=== PATIENT | female | born 1940 | race Caucasian/White ===

== ENCOUNTER 2018-02-13 15:13 | Inpatient (IN) | payer MEDICARE, BC, OTHER ==
[~2018-02-13 15:13] MED LIST: Calcium Chloride 1 GM/10 ML Abboject SYRINGE ONE; ISOVUE-370 76%-LOCM 1 ML ONE; PHENYLEPHRINE-NS 100 MCG/ML 10 ML SYRINGE ONE; Sodium Bicarb 50 MEQ/50 ML Abboject 8.4% SYRINGE ONE
[2018-02-13] MEDS ORDERED: CEFAZOLIN 1 GM VIAL ONE (15:23)
[2018-02-13] MEDS ORDERED: Sodium Chloride 0.9% 0 ML ONE (15:24)
[2018-02-13 15:32] LABS: #Basophils 0.1 thou/uL (0.0-0.2); #Eosinphils 0.3 thou/uL (0.0-0.7); #Lymphocytes 4.4 thou/uL (1.20-3.40); #Monocytes 1.3 thou/uL (0.11-0.59); #Neutrophils 13.1 thou/uL (1.40-6.50); %Basophils 0.4 % (0.0-1.0); %Eosinophils 1.7 % (0.0-10.0); %Monocytes 6.8 % (0.0-10.0); %Neutrophils 68.1 % (42.0-75.0); Hemoglobin 9.3 g/dL (12.0-16.0); Mean Corpuscular HGB CONC 33.7 g/dL (32.0-36.0); Mean Corpuscular Hemoglobin 32.8 pg (27.0-31.0); Mean Corpuscular Volume 97.4 fL (78.0-98.0); Mean Platelet Volume 9.2 fL (7.4-10.4); Platelet Count 194 thou/uL (130-400); RBC Distribution Width 13.3 % (11.5-14.5); Red Blood Cell (RBC) Count 2.82 mill/uL (4.20-5.40); White Blood Cell (WBC) Count 19.2 thou/uL (4.8-10.8)
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
[2018-02-13 15:41] LABS: INR-International Normal Ratio 1.2; Prothrombin Time 14.9 SEC (12.0-14.7)
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
[2018-02-13 15:42] LABS: PTT 22.8 SEC (22.9-36.1)
[2018-02-13] MEDS ORDERED: Gentamicin Sulfate 300 MG in Sodium Chloride 0.9% 100 ML IVPB SCH (15:45)
[2018-02-13 15:49] LABS: ALT (SGPT) 17 U/L (8-55); AST (SGOT) 29 U/L (5-34); Albumin 3.3 g/dL (3.4-4.8); Alkaline Phosphatase 39 U/L (40-150); Anion Gap 16 mmol/L (10-20); BUN (Urea Nitrogen) 26 mg/dL (9.8-20.1); Bilirubin, Total 0.4 mg/dL (0.2-1.2); Calc. Creatinine Clearance 0 mL/min (70-130); Calcium 8.1 mg/dL (7.8-10.44); Carbon Dioxide 15 mmol/L (23-31); Chloride 107 mmol/L (98-107); Estimated GFR-MDRD 39; Globulin 2.1 g/dL (2.4-3.5); Glucose 171 mg/dL (83-110); Potassium 4.1 mmol/L (3.5-5.1); Protein, Total 5.4 g/dL (6.0-8.3); Sodium 134 mmol/L (136-145)
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
[2018-02-13 16:12] LABS: Alcohol 58 mg/dL (Less than 10); Lipase 72 U/L (8-78)
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
[2018-02-13 16:15] LABS: Bilirubin Negative (Negative); Blood, Urine Trace (Negative); Clarity CLOUDY (Clear); Glucose, Urine (Dipstick) Negative (Negative); Leukocyte Large (Negative); Nitrite Positive (Negative); Protein, Urine (Dipstick) Trace mg/dL (Neg-Trace); Specific Gravity, Urine 1.015 (1.002-1.036); Urobilinogen 0.2 mg/dL (0.2-1.0)
[2018-02-13 16:16] LABS: Bacteria/HPF 4+ HPF (None Seen); Hyaline Casts/LPF 7-10 HYALINE CAST LPF (0-3 Hyaline); Pathc Cast-AUWi Flag 1.01 (0-2.49); RBC/HPF 0-3 HPF (0-3); Squamous Epithelial None Seen HPF (0-3); WBC/HPF 21-50 HPF (0-3)
[2018-02-13] MEDS ORDERED: Dextrose 50% Abboject 50 ML SYRINGE SLOW IVP PRN ×2 (16:26→17:03)
[2018-02-13] MEDS ORDERED: Dextrose 5% in Water 1,000 ML IV PRN ×2 (16:26→17:03)
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
[2018-02-13] MEDS ORDERED: Ondansetron ODT 4 MG TAB PO PRN (17:03)
[2018-02-13] MEDS ORDERED: Ondansetron HCl/PF 4 MG/2 ML Vial IVP PRN (17:03)
[2018-02-13] MEDS ORDERED: Sodium Bicarbonate 2.5 MEQ/5 ML VIAL ONE ×2 (17:19→18:23)
[2018-02-13] MEDS ORDERED: Calcium Chloride 1 GM/10 ML Abboject SYRINGE ONE (17:19)
[2018-02-13] MEDS ORDERED: Sodium Bicarb 50 MEQ/50 ML Abboject 8.4% SYRINGE ONE ×2 (17:21→18:23)
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
[2018-02-13 17:38] LABS: Actual Bicarbonate (HCO3a) 15.6 mEq/L (22-28); Base Excess (BEa) -9.1 mEq/L (-2.0 to +3.0); CO2 Tension 39.6 mmHg (35.0-45.0); O2 Tension (PaO2) 109.4 mmHg (> 70.0); pH, Arterial 7.34 (7.35-7.45)
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
[2018-02-13 17:39] LABS: Analyzer IN Cardio ER; Hematocrit-ABG 30.1 % (36.0-47.0); Puncture Site LINE
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
[2018-02-13] MEDS ORDERED: cefTRIAXone\\ROCEPHIN 1 GM in Sodium Chloride 0.9% 100 ML IVPB SCH (18:00)
[2018-02-13] MEDS ORDERED: Multivitamins, Adult 10 ML, Folic Acid 1 MG, Thiamine HCl 100 MG in Dextrose 5 %-0.45 %... IV SCH (18:00)
[2018-02-13] MEDS ORDERED: PHENYLEPHRINE-NS 100 MCG/ML 10 ML SYRINGE ONE (18:07)
[2018-02-13] MEDS ORDERED: Albumin 25% 0 ML ONE (18:12)
[2018-02-13] MEDS ORDERED: Albumin 5% 500 ML ONE (18:14)
[2018-02-13] MEDS ORDERED: Midazolam HCl 2 mg/2 ml Vial ONE ×2 (18:48→23:40)
[2018-02-13] MEDS ORDERED: Fentanyl 100 MCG/2 ML VIAL ONE (18:50)
[2018-02-13] MEDS: Acetaminophen 1,000 MG in Premix Bag 1 BAG IVPB SCH (19:26)
[2018-02-13 20:02] LABS: Hemoglobin 11.3 g/dL (12.0-16.0)
[2018-02-13] MEDS: cefTRIAXone\\ROCEPHIN 1 GM in Sodium Chloride 0.9% 100 ML IVPB SCH (20:02)
[2018-02-13 20:04] LABS: Actual Bicarbonate (HCO3a) 19.8 mEq/L (22-28); Base Excess (BEa) -3.6 mEq/L (-2.0 to +3.0); CO2 Tension 30.4 mmHg (35.0-45.0); Hemoglobin (Hb) 11.9 g/dL (12.0-16.0); O2 Tension (PaO2) 62.5 mmHg (> 70.0); pH, Arterial 7.43 (7.35-7.45)
[2018-02-13 20:05] LABS: Calcium, Ionized 1.2 mmol/L (1.12-1.30); Puncture Site LINE
[2018-02-13] MEDS ORDERED: Hydrocortisone Sod Succ/PF 100 mg/2 ml Vial IVP SCH (20:30)
[2018-02-13] MEDS ORDERED: Calcium Chloride 1 GM/10 ML Abboject SYRINGE IVP SCH (20:45)
[2018-02-13] MEDS: Hydrocortisone Sod Succ/PF 100 mg/2 ml Vial IVP SCH (20:59)
--- NOTE | 2018-02-13 21:14 | RAD ---
AP VIEW CHEST POSTOPERATIVE RADIOGRAPH 02/13/18 HISTORY: Intubated patient. AP view chest is obtained on 02/13/18. Comparison made to previous exam from earlier in the day on 02/13/18. AP view chest demonstrates nasogastric and endotracheal tubes in place. There is interval development of extensive bilateral air space opacities concerning for pulmonary cristiana ma. There is loss of the left lung hemidiaphragm interface at this time. This may represent a developed l eft lower lobe pneumonia or aspiration. IMPRESSION: 1. Diffuse pulmonary air space opacities concerning for pulmonary edema. 2. Loss of the left lung diaphragm interface compatible with developed left lower lobe pneumonia or aspiration. POS: [facility]
[2018-02-13] MEDS: fentaNYL Citrate/PF 2,000 MCG in Sodium Chloride 0.9% 60 ML IV PRN (22:01)
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
[2018-02-13 23:11] LABS: CO2 Tension 27.7 mmHg (35.0-45.0); O2 Tension (PaO2) 71.8 mmHg (> 70.0); pH, Arterial 7.41 (7.35-7.45)
[2018-02-13 23:12] LABS: Actual Bicarbonate (HCO3a) 17.2 mEq/L (22-28); Base Excess (BEa) -6.5 mEq/L (-2.0 to +3.0)
[2018-02-13 23:13] LABS: Calcium, Ionized 1.2 mmol/L (1.12-1.30); Puncture Site LINE
[2018-02-13 23:14] LABS: ALV-art Gradient 601.575 (0-20)
[2018-02-13] MEDS ORDERED: Vecuronium 10 MG VIAL ONE (23:41)
[2018-02-13] MEDS ORDERED: Midazolam HCl 2 mg/2 ml Vial IVP SCH (23:45)
[2018-02-13] MEDS ORDERED: Vecuronium 10 MG VIAL IV SCH (23:45)
[2018-02-13] MEDS ORDERED: Norepinephrine 8 MG/0.9% NS 250 ML ONE (23:53)
[2018-02-14] MEDS: Acetaminophen 1,000 MG in Premix Bag 1 BAG IVPB SCH ×4 (00:26→17:21)
[2018-02-14] MEDS ORDERED: Norepinephrine 8 MG/250 ML BAG IVPB PRN (00:30)
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
[2018-02-14] MEDS: Hydrocortisone Sod Succ/PF 100 mg/2 ml Vial IVP SCH ×4 (02:55→20:01)
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
[2018-02-14 04:16] LABS: Anion Gap 11 mmol/L (10-20); BUN (Urea Nitrogen) 25 mg/dL (9.8-20.1); CK (CPK) 122 U/L (29-168); Calc. Creatinine Clearance 34 mL/min (70-130); Calcium 8.8 mg/dL (7.8-10.44); Carbon Dioxide 19 mmol/L (23-31); Chloride 111 mmol/L (98-107); Estimated GFR-MDRD 40; Glucose 158 mg/dL (83-110); Magnesium 1.2 mg/dL (1.6-2.6); Potassium 3.3 mmol/L (3.5-5.1); Sodium 138 mmol/L (136-145)
[2018-02-14 04:24] LABS: Phosphorus 1.8 mg/dL (2.3-4.7)
[2018-02-14 05:46] LABS: Hemoglobin 7.6 g/dL (12.0-16.0); Mean Corpuscular HGB CONC 35.2 g/dL (32.0-36.0); Mean Corpuscular Hemoglobin 32.4 pg (27.0-31.0); Mean Corpuscular Volume 91.8 fL (78.0-98.0); Mean Platelet Volume 9.5 fL (7.4-10.4); Platelet Count 69 thou/uL (130-400); RBC Distribution Width 14.2 % (11.5-14.5); Red Blood Cell (RBC) Count 2.33 mill/uL (4.20-5.40); White Blood Cell (WBC) Count 2.1 thou/uL (4.8-10.8)
[2018-02-14 06:08] LABS: Band 44 % (5-11); Lymphocytes 20 % (21-51); MDiff Complete? YES; Metamyelocyte 2 % (0-0); Monocytes 6 % (0-10); Neutrophil 28 % (42-75); PLT Morphology Comment Appears Decreased; Reflex for Review?? NO
[2018-02-14 06:26] LABS: Hemoglobin 7.7 g/dL (12.0-16.0); Mean Corpuscular HGB CONC 35.4 g/dL (32.0-36.0); Mean Corpuscular Hemoglobin 32.9 pg (27.0-31.0); Mean Corpuscular Volume 92.8 fL (78.0-98.0); Mean Platelet Volume 9.2 fL (7.4-10.4); Platelet Count 68 thou/uL (130-400); RBC Distribution Width 14.1 % (11.5-14.5); Red Blood Cell (RBC) Count 2.34 mill/uL (4.20-5.40); White Blood Cell (WBC) Count 3.2 thou/uL (4.8-10.8)
[2018-02-14] MEDS ORDERED: Potassium Phosphate 30 MMOL, Magnesium Sulfate 3 GM in Sodium Chloride 0.9% 250 ML 250 ML IVPB SCH (06:30)
[2018-02-14 06:35] LABS: Band 42 % (5-11); Lymphocytes 19 % (21-51); MDiff Complete? YES; Microcytosis MODERATE=15-30 cells (100X) (0-5/hpf); Monocytes 6 % (0-10); Neutrophil 33 % (42-75); PLT Morphology Comment Appears Decreased
[2018-02-14 08:04] LABS: Actual Bicarbonate (HCO3a) 17.9 mEq/L (22-28); Base Excess (BEa) -4.5 mEq/L (-2.0 to +3.0); CO2 Tension 23.4 mmHg (35.0-45.0); O2 Tension (PaO2) 65.7 mmHg (> 70.0)
[2018-02-14 08:05] LABS: Calcium, Ionized 1.1 mmol/L (1.12-1.30); Hemoglobin (Hb) 7.8 g/dL (12.0-16.0); Puncture Site ALINE
[2018-02-14] MEDS ORDERED: Calcium Chloride 1 GM/10 ML Abboject SYRINGE IVP SCH (08:45)
[2018-02-14 09:08] LABS: Actual Bicarbonate (HCO3a) 16.9 mEq/L (22-28); Base Excess (BEa) -7.3 mEq/L (-2.0 to +3.0); CO2 Tension 29.5 mmHg (35.0-45.0); Hemoglobin (Hb) 8.7 g/dL (12.0-16.0); O2 Tension (PaO2) 62.4 mmHg (> 70.0); pH, Arterial 7.38 (7.35-7.45)
[2018-02-14 09:09] LABS: Calcium, Ionized 1.2 mmol/L (1.12-1.30); Puncture Site ALINE
[2018-02-14 09:10] LABS: ALV-art Gradient 185.925 (0-20)
--- NOTE | 2018-02-14 09:12 | RAD ---
PORTABLE CHEST: Date: 02/14/18 PROVIDED CLINICAL HISTORY: Respiratory insufficiency. FINDINGS: Comparison made with the study dated 02/13/18. Significant interval change with respect to the prior examination is not apparent. IMPRESSION: As above. POS: [facility]
--- NOTE | 2018-02-14 09:20 | RAD ---
PORTABLE CHEST: Date: 02/13/18 PROVIDED CLINICAL HISTORY: Central line placement. FINDINGS: Comparison with 02/13/18 at 2034 hours. Interval placement of left-sided central line, the tip of which projects in the expected location of SVC. No evidence for pneumothorax, with limitations due to the supine nature of the study. Additional interval change with respect to the prior examination is not apparent. IMPRESSION: Post central line placement without evidence for complication. POS: [facility]
[2018-02-14] MEDS: Folic Acid 1 MG TAB PO SCH (09:27)
[2018-02-14] MEDS: Multivitamin W/ Minerals 1 TAB PO SCH (09:27)
[2018-02-14] MEDS: Lactated Ringer's 1,000 ML IV SCH (11:29)
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
[2018-02-14] MEDS: Propofol 1,000 MG/100 ML VIAL IV PRN (16:07)
[2018-02-14] MEDS: cefTRIAXone\\ROCEPHIN 1 GM in Sodium Chloride 0.9% 100 ML IVPB SCH (20:00)
[2018-02-14] MEDS ORDERED: Norepinephrine 8 MG/0.9% NS 250 ML ONE (20:10)
[2018-02-15] MEDS: Lactated Ringer's 1,000 ML IV SCH ×2 (00:26→13:11)
[2018-02-15] MEDS: Hydrocortisone Sod Succ/PF 100 mg/2 ml Vial IVP SCH ×4 (02:03→21:17)
[2018-02-15] MEDS: fentaNYL Citrate/PF 2,000 MCG in Sodium Chloride 0.9% 60 ML IV PRN ×2 (02:21→21:19)
[2018-02-15] MEDS: Propofol 1,000 MG/100 ML VIAL IV PRN ×3 (03:33→17:54)
[2018-02-15 04:53] LABS: Anion Gap 16 mmol/L (10-20); BUN (Urea Nitrogen) 25 mg/dL (9.8-20.1); Calc. Creatinine Clearance 35 mL/min (70-130); Calcium 9.4 mg/dL (7.8-10.44); Carbon Dioxide 17 mmol/L (23-31); Chloride 110 mmol/L (98-107); Estimated GFR-MDRD 42; Glucose 197 mg/dL (83-110); Potassium 3.5 mmol/L (3.5-5.1); Sodium 139 mmol/L (136-145)
[2018-02-15 05:50] LABS: Band 53 % (5-11); Hemoglobin 9.4 g/dL (12.0-16.0); Hypochromia SLIGHT = 6-15 cells (100X) (0-5/hpf); Lymphocytes 1 % (21-51); MDiff Complete? YES; Mean Corpuscular HGB CONC 34.4 g/dL (32.0-36.0); Mean Corpuscular Hemoglobin 32.3 pg (27.0-31.0); Mean Corpuscular Volume 93.9 fL (78.0-98.0); Mean Platelet Volume 10.3 fL (7.4-10.4); Monocytes 7 % (0-10); Neutrophil 39 % (42-75); PLT Morphology Comment Appears Decreased; Platelet Count 76 thou/uL (130-400); RBC Distribution Width 14.5 % (11.5-14.5); Red Blood Cell (RBC) Count 2.91 mill/uL (4.20-5.40); White Blood Cell (WBC) Count 15.9 thou/uL (4.8-10.8)
[2018-02-15] MEDS ORDERED: Potassium Chloride 40 MEQ in Sodium Chloride 0.9% 250 ML 250 ML IVPB SCH (08:15)
[2018-02-15 08:32] LABS: pH, Arterial 7.47 (7.35-7.45)
[2018-02-15 08:34] LABS: Actual Bicarbonate (HCO3a) 18.1 mEq/L (22-28); Base Excess (BEa) -4.5 mEq/L (-2.0 to +3.0); CO2 Tension 25.3 mmHg (35.0-45.0); O2 Tension (PaO2) 84.8 mmHg (> 70.0)
[2018-02-15 08:35] LABS: Analyzer IN Cardio OR; Calcium, Ionized 1.2 mmol/L (1.12-1.30); Hemoglobin (Hb) 9.3 g/dL (12.0-16.0); Puncture Site ALINE
[2018-02-15 08:36] LABS: ALV-art Gradient 168.775 (0-20)
[2018-02-15] MEDS ORDERED: Potassium Chloride 40 MEQ, Magnesium Sulfate 2 GM in Sodium Chloride 0.9% 250 ML 250 ML IVPB SCH (09:00)
[2018-02-15] MEDS ORDERED: Pancrelipase DR 12000 1 CAP PER TUBE PRN (09:38)
[2018-02-15] MEDS ORDERED: Sodium Bicarbonate Tab 325 MG TAB PER TUBE PRN (09:39)
--- NOTE | 2018-02-15 09:40 | RAD ---
PORTABLE CHEST: Date: 02/15/18 PROVIDED CLINICAL HISTORY: Respiratory insufficiency. FINDINGS: Comparison with 02/14/18. Significant interval change with respect to the prior examination is not apparent. IMPRESSION: As above. POS: RAIN
[2018-02-15] MEDS: Multivitamin W/ Minerals 1 TAB PO SCH (09:50)
[2018-02-15] MEDS: Folic Acid 1 MG TAB PO SCH (09:50)
[2018-02-15 10:36] LABS: pH, Arterial 7.39 (7.35-7.45)
[2018-02-15 10:37] LABS: Actual Bicarbonate (HCO3a) 20.4 mEq/L (22-28); Base Excess (BEa) -3.9 mEq/L (-2.0 to +3.0); CO2 Tension 34.3 mmHg (35.0-45.0); Calcium, Ionized 1.2 mmol/L (1.12-1.30); Hemoglobin (Hb) 9.3 g/dL (12.0-16.0); O2 Tension (PaO2) 89.6 mmHg (> 70.0)
[2018-02-15 10:38] LABS: ALV-art Gradient 152.725 (0-20); Puncture Site ALINE
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
[2018-02-15] MEDS: Albumin 25% 25 GM/100 ML BOT IVPB SCH ×2 (13:03→17:55)
[2018-02-15] MEDS: cefTRIAXone\\ROCEPHIN 1 GM in Sodium Chloride 0.9% 100 ML IVPB SCH (20:50)
[2018-02-15] MEDS ORDERED: Sodium Chloride 0.9% 500 ML IV SCH (21:15)
[2018-02-15] MEDS: Oxazepam 10 MG CAP PO SCH (21:38)
[2018-02-15] MEDS: Acetaminophen 1,000 MG in Premix Bag 1 BAG IVPB SCH (22:48)
[2018-02-16] MEDS: Propofol 1,000 MG/100 ML VIAL IV PRN ×2 (00:46→18:20)
[2018-02-16] MEDS: Hydrocortisone Sod Succ/PF 100 mg/2 ml Vial IVP SCH ×4 (02:02→20:40)
[2018-02-16 04:55] LABS: Anion Gap 11 mmol/L (10-20); BUN (Urea Nitrogen) 32 mg/dL (9.8-20.1); Calc. Creatinine Clearance 41 mL/min (70-130); Calcium 9.2 mg/dL (7.8-10.44); Carbon Dioxide 23 mmol/L (23-31); Chloride 112 mmol/L (98-107); Estimated GFR-MDRD 47; Glucose 172 mg/dL (83-110); Magnesium 2.6 mg/dL (1.6-2.6); Phosphorus 2.9 mg/dL (2.3-4.7); Potassium 3.5 mmol/L (3.5-5.1); Sodium 142 mmol/L (136-145)
[2018-02-16] MEDS: Lactated Ringer's 1,000 ML IV SCH (05:07)
[2018-02-16] MEDS: Acetaminophen 1,000 MG in Premix Bag 1 BAG IVPB SCH ×3 (05:08→17:03)
[2018-02-16] MEDS: Oxazepam 10 MG CAP PO SCH ×3 (05:08→21:57)
[2018-02-16 05:24] LABS: Band 46 % (5-11); Hemoglobin 7.5 g/dL (12.0-16.0); Lymphocytes 6 % (21-51); MDiff Complete? YES; Mean Corpuscular HGB CONC 33.9 g/dL (32.0-36.0); Mean Corpuscular Hemoglobin 32.5 pg (27.0-31.0); Mean Corpuscular Volume 95.8 fL (78.0-98.0); Mean Platelet Volume 10.8 fL (7.4-10.4); Metamyelocyte 1 % (0-0); Monocytes 3 % (0-10); Neutrophil 44 % (42-75); PLT Morphology Comment Appears Decreased; Platelet Count 53 thou/uL (130-400); RBC Distribution Width 14.5 % (11.5-14.5); Red Blood Cell (RBC) Count 2.31 mill/uL (4.20-5.40); White Blood Cell (WBC) Count 12.8 thou/uL (4.8-10.8)
[2018-02-16 06:53] LABS: Actual Bicarbonate (HCO3a) 19.5 mEq/L (22-28); Base Excess (BEa) -4.5 mEq/L (-2.0 to +3.0); CO2 Tension 31.3 mmHg (35.0-45.0); Hemoglobin (Hb) 7.4 g/dL (12.0-16.0); O2 Tension (PaO2) 122.6 mmHg (> 70.0); pH, Arterial 7.41 (7.35-7.45)
[2018-02-16 06:54] LABS: ALV-art Gradient 123.475 (0-20); Calcium, Ionized 1.2 mmol/L (1.12-1.30); Puncture Site RRA
[2018-02-16] MEDS ORDERED: Furosemide 40 MG/4 ML VIAL SLOW IVP SCH ×2 (08:15→22:00)
[2018-02-16] MEDS ORDERED: Potassium Phosphate 30 MMOL in Sodium Chloride 0.9% 250 ML 250 ML IVPB SCH (08:15)
--- NOTE | 2018-02-16 08:56 | RAD ---
PORTABLE SEMIUPRIGHT FRONTAL CHEST RADIOGRAPH: DATE: 02/16/18. COMPARISON: 02/15/18. HISTORY: ARDS. FINDINGS: Endotracheal tube, nasogastric tube, and left-sided vascular catheter present, in stable position. N o pneumothorax is evident. There is dense pleural and parenchymal opacity within the inferior aspect of both lung bases, right greater than left. There is airspace disease in the right perihilar regio n and right lung base with interval slight improvement in aeration within the left base in the mid ri ght lung zone. IMPRESSION: Lines and tubes as detailed above. Persistent pleural and parenchymal opacity noted within the lung bases, with slight interval improvement in bibasilar aeration. Continued followup advised. POS: RAIN
[2018-02-16] MEDS: Multivitamin W/ Minerals 1 TAB PO SCH (08:57)
[2018-02-16] MEDS: Polyethylene Glycol 3350 17 GM Packet PER TUBE SCH (08:58)
[2018-02-16] MEDS: Folic Acid 1 MG TAB PO SCH (08:58)
[2018-02-16] MEDS: Pantoprazole 40 MG VIAL IVP SCH (08:58)
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
[2018-02-16] MEDS ORDERED: Metolazone 2.5 MG TAB PO SCH (16:00)
[2018-02-16] MEDS ORDERED: Amiodarone In Dextrose 200 ML IVPB SCH (16:00)
[2018-02-16] MEDS ORDERED: Amiodarone HCl 150 MG in Dextrose 5% in Water 100 ML IVPB SCH (16:00)
[2018-02-16] MEDS: Amiodarone HCl 450 MG, Admixture Fee 1 EACH in Dextrose 5% in Water 250 ML IVPB SCH ×2 (16:33→23:00)
[2018-02-16] MEDS: Ferrous Sulfate 325 MG TAB PO SCH (16:34)
[2018-02-16] MEDS: Furosemide 40 MG/4 ML VIAL SLOW IVP SCH (16:34)
[2018-02-16 16:52] LABS: Magnesium 2.2 mg/dL (1.6-2.6); Phosphorus 4.9 mg/dL (2.3-4.7); Potassium 3.5 mmol/L (3.5-5.1)
[2018-02-16] MEDS ORDERED: Potassium Chloride 40 MEQ, Magnesium Sulfate 2 GM in Sodium Chloride 0.9% 250 ML 250 ML IVPB SCH (17:15)
[2018-02-16] MEDS: fentaNYL Citrate/PF 2,000 MCG in Sodium Chloride 0.9% 60 ML IV PRN (19:41)
[2018-02-16] MEDS: Ascorbic Acid 500 mg Chewable Tablet PO SCH (20:40)
[2018-02-16] MEDS: cefTRIAXone\\ROCEPHIN 1 GM in Sodium Chloride 0.9% 100 ML IVPB SCH (21:20)
[2018-02-17] MEDS: Acetaminophen 1,000 MG in Premix Bag 1 BAG IVPB SCH
[2018-02-17] MEDS: Amiodarone HCl 450 MG, Admixture Fee 1 EACH in Dextrose 5% in Water 250 ML IVPB SCH ×2 (01:26→20:44)
[2018-02-17] MEDS: Hydrocortisone Sod Succ/PF 100 mg/2 ml Vial IVP SCH ×4 (03:00→20:32)
[2018-02-17 05:27] LABS: Band 20 % (5-11); Hemoglobin 7.8 g/dL (12.0-16.0); Hypochromia SLIGHT = 6-15 cells (100X) (0-5/hpf); Lymphocytes 2 % (21-51); MDiff Complete? YES; Mean Corpuscular HGB CONC 33.1 g/dL (32.0-36.0); Mean Corpuscular Hemoglobin 31.8 pg (27.0-31.0); Mean Platelet Volume 11.2 fL (7.4-10.4); Metamyelocyte 1 % (0-0); Monocytes 8 % (0-10); Neutrophil 69 % (42-75); PLT Morphology Comment Appears Decreased; Platelet Count 73 thou/uL (130-400); RBC Distribution Width 14.6 % (11.5-14.5); Red Blood Cell (RBC) Count 2.46 mill/uL (4.20-5.40); White Blood Cell (WBC) Count 18.7 thou/uL (4.8-10.8)
[2018-02-17] MEDS: Oxazepam 10 MG CAP PO SCH ×3 (06:40→21:05)
[2018-02-17] MEDS: Propofol 1,000 MG/100 ML VIAL IV PRN ×2 (06:41→08:18)
[2018-02-17 07:30] LABS: Anion Gap 12 mmol/L (10-20); BUN (Urea Nitrogen) 49 mg/dL (9.8-20.1); Calc. Creatinine Clearance 18 mL/min (70-130); Calcium 8.9 mg/dL (7.8-10.44); Carbon Dioxide 26 mmol/L (23-31); Chloride 106 mmol/L (98-107); Estimated GFR-MDRD 37; Glucose 101 mg/dL (83-110); Potassium 3.1 mmol/L (3.5-5.1); Sodium 141 mmol/L (136-145)
[2018-02-17 07:34] LABS: Actual Bicarbonate (HCO3a) 23.7 mEq/L (22-28); Base Excess (BEa) 0.1 mEq/L (-2.0 to +3.0); CO2 Tension 34.2 mmHg (35.0-45.0); Hemoglobin (Hb) 8.3 g/dL (12.0-16.0); O2 Tension (PaO2) 99.6 mmHg (> 70.0); pH, Arterial 7.46 (7.35-7.45)
[2018-02-17 07:35] LABS: Calcium, Ionized 1.2 mmol/L (1.12-1.30); Puncture Site RRA
--- NOTE | 2018-02-17 08:03 | RAD ---
SINGLE VIEW OF THE CHEST: COMPARISON: 02/16/18. HISTORY: ARDS. FINDINGS: A single view of the chest shows an enlarged cardiomediastinal silhouette. The lines and tubes are u nchanged in position. There are multifocal mixed alveolar/interstitial opacities, right greater than left. There may also be small bilateral pleural effusions. IMPRESSION: Stable exam. POS: C
[2018-02-17 08:28] LABS: Hemoglobin 8.4 g/dL (12.0-16.0); Mean Corpuscular HGB CONC 34.2 g/dL (32.0-36.0); Mean Corpuscular Hemoglobin 32.8 pg (27.0-31.0); Mean Corpuscular Volume 95.9 fL (78.0-98.0); Mean Platelet Volume 10.9 fL (7.4-10.4); Platelet Count 80 thou/uL (130-400); RBC Distribution Width 14.5 % (11.5-14.5); Red Blood Cell (RBC) Count 2.55 mill/uL (4.20-5.40); White Blood Cell (WBC) Count 18.1 thou/uL (4.8-10.8)
[2018-02-17 08:33] LABS: Magnesium 2.6 mg/dL (1.6-2.6); Phosphorus 3.7 mg/dL (2.3-4.7)
[2018-02-17] MEDS ORDERED: Potassium Chloride 20 MEQ in Premix Bag 1 BAG IVPB SCH (08:45)
[2018-02-17] MEDS ORDERED: Furosemide 40 MG TAB PO SCH ×2 (09:00)
[2018-02-17 09:38] LABS: Band 33 % (5-11); Hypochromia SLIGHT = 6-15 cells (100X) (0-5/hpf); Lymphocytes 2 % (21-51); MDiff Complete? YES; Monocytes 3 % (0-10); Neutrophil 62 % (42-75); PLT Morphology Comment Appears Decreased; Polychromasia SLIGHT = 2-3 cells (100X) (0-2/hpf)
[2018-02-17] MEDS: Ferrous Sulfate 325 MG TAB PO SCH ×2 (09:50→17:23)
[2018-02-17] MEDS: Furosemide 40 MG/4 ML VIAL SLOW IVP SCH ×2 (09:50)
[2018-02-17] MEDS: Folic Acid 1 MG TAB PO SCH (09:51)
[2018-02-17] MEDS: Ascorbic Acid 500 mg Chewable Tablet PO SCH ×2 (09:51→20:32)
[2018-02-17] MEDS: Senokot S 8.6-50 MG TAB PO SCH ×2 (09:52→20:32)
[2018-02-17] MEDS: Polyethylene Glycol 3350 17 GM Packet PER TUBE SCH (09:52)
[2018-02-17] MEDS: Pantoprazole 40 MG VIAL IVP SCH (09:52)
[2018-02-17] MEDS: Multivitamin W/ Minerals 1 TAB PO SCH (09:52)
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
[2018-02-17] MEDS: Metolazone 2.5 MG TAB PO SCH (11:40)
[2018-02-17] MEDS: Bisoprolol Fumarate/HCTZ 10 mg/6.25 mg Tablet PO SCH ×2 (11:40→20:47)
--- NOTE | 2018-02-17 12:44 | PQF ---
CLINICAL DOCUMENTATION IMPROVEMENT CLARIFICATION FORM: ICD-10 Updated PLEASE DO AN ADDENDUM TO THE PROGRESS NOTE WITH ANY DOCUMENTATION UPDATES OR ADDITIONS AND CARRY THROUGH TO DC SUMMARY. THANK YOU. DATE: 02/17/18 ATTN: DR. KAMARA Please exercise your independent, professional judgment in responding to the clarification form. Clinical indicators are provided on the bottom of this form for your review Please exercise your independent, professioanl judgement in responding to the clarification form. Clinical indicators are provided on the bottom of this form for your review. [ ] Aspiration Pneumonia [ x ] Pulmonary Contusion [ ] Aspiration Pneumonia with Pulmonary Contusion [ ] Other diagnosis [ ] Unable to determine In addition, please specify: Present on Admission (POA): [ x ] Yes [ ] No [ ] Unable to determine For continuity of documentation, please document condition throughout progress notes and discharge summary. Thank You. CLINICAL INDICATORS - SIGNS / SYMPTOMS / LABS ER NOTE "ASPIRATION PNEUMONIA" H&P: "SHE HAS PULMONARY CONTUSION VERSUS ASPIRATION PNEUMONIA" CHEST XRAY 02/13: "LOSS OF THE LEFT LUNG DIAPHRAGM INTERFACE COMPATIBLE WITH DEVELOPED LEFT LOWER LOBE PNEUMONIA OR ASPIRATION." RISKS: RIB FRACTURES UNRESPONSIVENESS EN ROUTE TO HOSPITAL TREATMENT: INTUBATION WITH MECHANICAL VENTILATION SERIAL CHEST XRAYS IV ROCEPHIN 02/16-02/17 (This form is maintained as a part of the permanent medical record) 2014 [employer]. All Rights Reserved [email or web address] Office: [phone] [facility]
[2018-02-17] MEDS: NIFEdipine 10 MG CAP PO SCH ×2 (14:11→20:52)
[2018-02-17] MEDS: Enoxaparin Sodium 30 MG/0.3 ML SYRINGE SC SCH (14:11)
[2018-02-17] MEDS: Metoclopramide HCl 10 MG/2 ML VIAL IVP SCH ×2 (14:12→21:05)
[2018-02-17 17:18] LABS: Anion Gap 13 mmol/L (10-20); BUN (Urea Nitrogen) 49 mg/dL (9.8-20.1); Calc. Creatinine Clearance 17 mL/min (70-130); Calcium 9.7 mg/dL (7.8-10.44); Carbon Dioxide 30 mmol/L (23-31); Chloride 100 mmol/L (98-107); Estimated GFR-MDRD 34; Glucose 141 mg/dL (83-110); Magnesium 2.5 mg/dL (1.6-2.6); Phosphorus 3.4 mg/dL (2.3-4.7); Potassium 3.3 mmol/L (3.5-5.1); Sodium 140 mmol/L (136-145)
[2018-02-17] MEDS: Furosemide 40 MG/4 ML VIAL IVP SCH (17:23)
[2018-02-17] MEDS ORDERED: Midazolam HCl 2 mg/ml Syrup 5 ml UD Cup PO PRN (20:10)
[2018-02-17] MEDS: Atorvastatin Calcium 40 MG TAB PO SCH (20:32)
[2018-02-17] MEDS: Midazolam HCl 2 mg/2 ml Vial SLOW IVP PRN (21:05)
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
[2018-02-18] MEDS: Midazolam HCl 2 mg/2 ml Vial SLOW IVP PRN (00:48)
[2018-02-18] MEDS: Furosemide 40 MG/4 ML VIAL IVP SCH ×2 (00:48→09:39)
[2018-02-18] MEDS: Hydrocortisone Sod Succ/PF 100 mg/2 ml Vial IVP SCH ×4 (03:00→21:15)
[2018-02-18 04:21] LABS: Anion Gap 18 mmol/L (10-20); BUN (Urea Nitrogen) 52 mg/dL (9.8-20.1); Calc. Creatinine Clearance 17 mL/min (70-130); Calcium 10.7 mg/dL (7.8-10.44); Carbon Dioxide 35 mmol/L (23-31); Chloride 94 mmol/L (98-107); Estimated GFR-MDRD 36; Glucose 193 mg/dL (83-110); Phosphorus 3.9 mg/dL (2.3-4.7); Potassium 3.2 mmol/L (3.5-5.1); Sodium 144 mmol/L (136-145)
[2018-02-18] MEDS: Metoclopramide HCl 10 MG/2 ML VIAL IVP SCH ×3 (05:57→21:14)
[2018-02-18] MEDS: Oxazepam 10 MG CAP PO SCH ×3 (05:57→21:14)
[2018-02-18] MEDS ORDERED: Dexamethasone 4 MG in Sodium Chloride 0.9% 50 ML IVPB SCH ×2 (08:45→09:00)
[2018-02-18] MEDS ORDERED: Dexamethasone 4 mg/ml Vial ONE (08:46)
[2018-02-18 08:58] LABS: Hemoglobin 9.5 g/dL (12.0-16.0); MDiff Complete? YES; Mean Corpuscular HGB CONC 33.6 g/dL (32.0-36.0); Mean Corpuscular Hemoglobin 32.3 pg (27.0-31.0); Mean Corpuscular Volume 95.9 fL (78.0-98.0); Mean Platelet Volume 11.7 fL (7.4-10.4); Platelet Count 132 thou/uL (130-400); RBC Distribution Width 14.4 % (11.5-14.5); Red Blood Cell (RBC) Count 2.95 mill/uL (4.20-5.40); White Blood Cell (WBC) Count 22.9 thou/uL (4.8-10.8)
[2018-02-18 08:59] LABS: Band 29 % (5-11); Lymphocytes 12 % (21-51); Metamyelocyte 1 % (0-0); Monocytes 4 % (0-10); Myelocyte 1 % (0-0); Neutrophil 51 % (42-75); PLT Morphology Comment Appears Adequate; RBC Morphology Normal; Reactive Lymphocytes 2 % (0-10); Reflex for Review?? NO; Toxic Granulation SLIGHT; Vacuoles MODERATE
--- NOTE | 2018-02-18 09:17 | RAD ---
CHEST 1 VIEW PORTABLE: Date: 02/18/18 HISTORY: 77-year-old female with history of ARDS and respiratory insufficiency. FINDINGS: Life support tubes again noted in place. Bilateral pleural effusions and bilateral alveolar and inter stitial parenchymal changes in the mid and lower lung zones. These appear to be slightly improving fr om the prior study. No significant abnormal new process. IMPRESSION: Slightly improving bilateral pulmonary and parenchymal changes. Stable pleural effusions. Stable life support tubes. No new process. POS: OFF
[2018-02-18] MEDS: Enoxaparin Sodium 30 MG/0.3 ML SYRINGE SC SCH (09:39)
[2018-02-18] MEDS: Dexamethasone 4 mg/ml Vial SLOW IVP SCH ×3 (09:39→23:58)
[2018-02-18] MEDS: Pantoprazole 40 MG VIAL IVP SCH (09:39)
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
[2018-02-18] MEDS: Amiodarone HCl 450 MG, Admixture Fee 1 EACH in Dextrose 5% in Water 250 ML IVPB SCH (12:19)
[2018-02-18] MEDS: Ferrous Sulfate 325 MG TAB PO SCH ×2 (14:09→18:23)
[2018-02-18] MEDS: Folic Acid 1 MG TAB PO SCH (14:10)
[2018-02-18] MEDS: Senokot S 8.6-50 MG TAB PO SCH ×2 (14:10→21:14)
[2018-02-18] MEDS: Ascorbic Acid 500 mg Chewable Tablet PO SCH ×2 (14:10→21:14)
[2018-02-18] MEDS: Multivitamin W/ Minerals 1 TAB PO SCH (14:10)
[2018-02-18] MEDS: Polyethylene Glycol 3350 17 GM Packet PER TUBE SCH (14:10)
[2018-02-18] MEDS: Bisoprolol Fumarate/HCTZ 10 mg/6.25 mg Tablet PO SCH ×2 (14:11→21:19)
[2018-02-18] MEDS: NIFEdipine 10 MG CAP PO SCH (14:32)
[2018-02-18] MEDS: Metolazone 2.5 MG TAB PO SCH (14:45)
[2018-02-18] MEDS: traMADol HCl 50 MG TAB PO PRN ×2 (16:36→23:54)
[2018-02-18] MEDS: Acetaminophen 500 MG TAB PO SCH ×2 (18:26→23:52)
[2018-02-18] MEDS: Atorvastatin Calcium 40 MG TAB PO SCH (21:14)
[2018-02-18] MEDS: diphenhydrAMINE 25 MG CAP PO PRN (23:53)
[2018-02-19] MEDS: Amiodarone HCl 450 MG, Admixture Fee 1 EACH in Dextrose 5% in Water 250 ML IVPB SCH ×2 (02:04→17:39)
[2018-02-19 06:07] LABS: Hemoglobin 10.9 g/dL (12.0-16.0); Mean Corpuscular HGB CONC 33.7 g/dL (32.0-36.0); Mean Corpuscular Hemoglobin 31.9 pg (27.0-31.0); Mean Corpuscular Volume 94.6 fL (78.0-98.0); RBC Distribution Width 13.8 % (11.5-14.5); Red Blood Cell (RBC) Count 3.43 mill/uL (4.20-5.40); White Blood Cell (WBC) Count 23.8 thou/uL (4.8-10.8)
[2018-02-19 06:23] LABS: BUN (Urea Nitrogen) 50 mg/dL (9.8-20.1); Calc. Creatinine Clearance 33 mL/min (70-130); Calcium 9.9 mg/dL (7.8-10.44); Estimated GFR-MDRD 44; Glucose 181 mg/dL (83-110); Magnesium 2.1 mg/dL (1.6-2.6); Phosphorus 3.5 mg/dL (2.3-4.7)
[2018-02-19] MEDS: Hydrocortisone Sod Succ/PF 100 mg/2 ml Vial IVP SCH ×4 (06:23→20:43)
[2018-02-19] MEDS ORDERED: Hydrocortisone Sod Succ/PF 100 mg/2 ml Vial ONE (06:23)
[2018-02-19] MEDS: Oxazepam 10 MG CAP PO SCH ×3 (06:24→20:44)
[2018-02-19] MEDS: Acetaminophen 500 MG TAB PO SCH ×3 (06:24→17:42)
[2018-02-19] MEDS: traMADol HCl 50 MG TAB PO PRN (06:25)
[2018-02-19] MEDS: Metoclopramide HCl 10 MG/2 ML VIAL IVP SCH ×3 (06:26→20:43)
[2018-02-19 06:27] LABS: Band 15 % (5-11); Lymphocytes 4 % (21-51); MDiff Complete? YES; Mean Platelet Volume 10.7 fL (7.4-10.4); Monocytes 5 % (0-10); Neutrophil 76 % (42-75); Platelet Count 173 thou/uL (130-400)
[2018-02-19 06:31] LABS: Anion Gap 21 mmol/L (10-20); Carbon Dioxide 35 mmol/L (23-31); Chloride 83 mmol/L (98-107); Sodium 136 mmol/L (136-145)
[2018-02-19 06:34] LABS: Potassium 2.8 mmol/L (3.5-5.1)
[2018-02-19] MEDS ORDERED: hydrALAZINE 20 MG/ML VIAL SLOW IVP PRN (07:17)
[2018-02-19] MEDS ORDERED: Furosemide 40 MG/4 ML VIAL SLOW IVP SCH (07:30)
[2018-02-19] MEDS: Enoxaparin Sodium 30 MG/0.3 ML SYRINGE SC SCH (08:15)
[2018-02-19] MEDS: Ascorbic Acid 500 mg Chewable Tablet PO SCH ×2 (08:15→20:42)
[2018-02-19] MEDS: Folic Acid 1 MG TAB PO SCH (08:15)
[2018-02-19] MEDS: Multivitamin W/ Minerals 1 TAB PO SCH (08:16)
[2018-02-19] MEDS: NIFEdipine XL 30 MG TAB PO SCH (08:16)
[2018-02-19] MEDS: Pantoprazole 40 MG VIAL IVP SCH (08:17)
[2018-02-19] MEDS: Polyethylene Glycol 3350 17 GM Packet PER TUBE SCH (08:17)
[2018-02-19] MEDS: Senokot S 8.6-50 MG TAB PO SCH ×2 (08:18→20:43)
[2018-02-19] MEDS ORDERED: Albumin 5% 250 ML ONE (09:03)
[2018-02-19] MEDS: Potassium Chloride 20 MEQ in Premix Bag 1 BAG IVPB SCH ×2 (09:30→11:26)
[2018-02-19] MEDS: Allopurinol 300 MG TAB PO SCH (09:43)
[2018-02-19] MEDS: Bisoprolol Fumarate/HCTZ 10 mg/6.25 mg Tablet PO SCH ×3 (09:44→20:43)
[2018-02-19] MEDS: Ferrous Sulfate 325 MG TAB PO SCH ×2 (11:25→17:39)
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
[2018-02-19] MEDS: Atorvastatin Calcium 40 MG TAB PO SCH (20:42)
[2018-02-19] MEDS: Zolpidem Tartrate 5 MG TAB PO PRN (20:44)
[2018-02-20] MEDS: Hydrocortisone Sod Succ/PF 100 mg/2 ml Vial IVP SCH ×2 (03:23→08:13)
[2018-02-20 04:42] LABS: BUN (Urea Nitrogen) 66 mg/dL (9.8-20.1); Calc. Creatinine Clearance 26 mL/min (70-130); Calcium 9.6 mg/dL (7.8-10.44); Estimated GFR-MDRD 33; Glucose 163 mg/dL (83-110); Magnesium 2.2 mg/dL (1.6-2.6); Phosphorus 3.5 mg/dL (2.3-4.7)
[2018-02-20 04:51] LABS: Anion Gap 19 mmol/L (10-20); Carbon Dioxide 36 mmol/L (23-31); Chloride 85 mmol/L (98-107); Sodium 137 mmol/L (136-145)
[2018-02-20 04:55] LABS: Potassium 2.7 mmol/L (3.5-5.1)
[2018-02-20 05:25] LABS: Band 27 % (5-11); Hemoglobin 9.9 g/dL (12.0-16.0); Lymphocytes 2 % (21-51); MDiff Complete? YES; Mean Corpuscular HGB CONC 32.3 g/dL (32.0-36.0); Mean Corpuscular Hemoglobin 30.9 pg (27.0-31.0); Mean Corpuscular Volume 95.7 fL (78.0-98.0); Mean Platelet Volume 10.4 fL (7.4-10.4); Monocytes 4 % (0-10); Neutrophil 67 % (42-75); Platelet Count 175 thou/uL (130-400); RBC Distribution Width 13.4 % (11.5-14.5)
[2018-02-20] MEDS: Acetaminophen 500 MG TAB PO SCH ×4 (06:22→16:45)
[2018-02-20] MEDS: Oxazepam 10 MG CAP PO SCH ×2 (06:22→20:23)
[2018-02-20] MEDS: Metoclopramide HCl 10 MG/2 ML VIAL IVP SCH (06:23)
[2018-02-20] MEDS: NIFEdipine XL 30 MG TAB PO SCH (08:12)
[2018-02-20] MEDS: Allopurinol 300 MG TAB PO SCH (08:12)
[2018-02-20] MEDS: Folic Acid 1 MG TAB PO SCH (08:13)
[2018-02-20] MEDS: Multivitamin W/ Minerals 1 TAB PO SCH (08:13)
[2018-02-20] MEDS: Pantoprazole 40 MG VIAL IVP SCH (08:13)
[2018-02-20] MEDS: Ascorbic Acid 500 mg Chewable Tablet PO SCH ×2 (08:13→20:23)
[2018-02-20] MEDS: Ferrous Sulfate 325 MG TAB PO SCH ×2 (08:13→16:46)
[2018-02-20] MEDS: Enoxaparin Sodium 30 MG/0.3 ML SYRINGE SC SCH (08:13)
[2018-02-20] MEDS: Polyethylene Glycol 3350 17 GM Packet PER TUBE SCH (08:14)
[2018-02-20] MEDS: Senokot S 8.6-50 MG TAB PO SCH ×2 (08:14→20:23)
[2018-02-20] MEDS: Amiodarone 200 MG TAB PO SCH (09:18)
[2018-02-20] MEDS: Bisoprolol Fumarate/HCTZ 10 mg/6.25 mg Tablet PO SCH ×2 (09:18→20:28)
--- NOTE | 2018-02-20 17:07 | PRG ---
DATE OF SERVICE: 02/20/2018 SUBJECTIVE: Ms. Merino is a 77-year-old woman who is post-injury #7 today status post crush injury t o the left lower extremity as well as the upper torso. The patient is recovering from acute respirat ory distress syndrome. Overnight, she did well. She has been on amiodarone by continuous infusion, which has converted her to normal sinus rhythm over last 24 hours. Today, she is awake and more alert. She moves all extremities and does follow commands. She is tolerating oral intake better today. OBJECTIVE: VITAL SIGNS: This morning, this includes blood pressure 108/46, pulse 74, respiratory rate 17, tempe rature 98 degrees Fahrenheit, oxygen saturation 99% on 2 liters by nasal cannula oxygen. HEENT: Reveals normocephalic and atraumatic. Pupils equal and reactive to light and accommodation. HEART: Reveals regular rate and rhythm. No murmurs or gallops auscultated. CHEST: Clear to auscultation bilaterally. Her breathing regular and unlabored. ABDOMEN: Soft, nontender, nondistended. Bowel sounds in all four quadrants appear normoactive. Saskia er and spleen are nonpalpable below costal margin. NEUROLOGIC: Reveals no focal deficits present. LABORATORY FINDINGS: Today includes a CBC with 21,000 white blood cells, hemoglobin and hematocrit 9 .9 and 30.6 respectively. Platelet count is 175,000. Metabolic profile: Sodium 137, potassium is 2 .7, chloride is 85, bicarbonate is 36, BUN 66, creatinine is 1.51, glucose is 163, magnesium is 2.2, phosphorus is 3.5. IMPRESSION: 1. Post-injury day #7 status post crush injury to lower extremity. 2. Resolved acute respiratory distress syndrome. 3. Acute hypokalemia. 4. Acute kidney injury. 5. Resolving acute metabolic encephalopathy. 6. Resolved acute atrial fibrillation with rapid ventricular response. PLAN: 1. We will start p.o. amiodarone and discontinue IV amiodarone. 2. Correct abnormal electrolytes. 3. Continue with physical and occupational therapy. 4. The patient remains hemodynamically stable 4 hours after discontinuation of the amiodarone. We w ill consider transferring the patient to general floor. 5. Ask PM&R to evaluate the patient for possible transfer to inpatient rehabilitation. Above findings and plan discussed with the patient who indicates understanding of information given. I have answered her questions.
[2018-02-20] MEDS: Atorvastatin Calcium 40 MG TAB PO SCH (20:23)
[2018-02-20] MEDS: Zolpidem Tartrate 5 MG TAB PO PRN (20:28)
[2018-02-21] MEDS: Acetaminophen 500 MG TAB PO SCH ×4 (00:08→18:27)
[2018-02-21 07:13] LABS: Hemoglobin 10.4 g/dL (12.0-16.0); Mean Corpuscular HGB CONC 32.2 g/dL (32.0-36.0); Mean Corpuscular Hemoglobin 30.7 pg (27.0-31.0); Mean Corpuscular Volume 95.5 fL (78.0-98.0); Mean Platelet Volume 10.4 fL (7.4-10.4); Platelet Count 189 thou/uL (130-400); RBC Distribution Width 13.5 % (11.5-14.5); White Blood Cell (WBC) Count 15.8 thou/uL (4.8-10.8)
[2018-02-21 07:44] LABS: Band 14 % (5-11); Lymphocytes 5 % (21-51); MDiff Complete? YES; Monocytes 3 % (0-10); Neutrophil 73 % (42-75); Reactive Lymphocytes 5 % (0-10)
[2018-02-21 07:47] LABS: Anion Gap 14 mmol/L (10-20); BUN (Urea Nitrogen) 70 mg/dL (9.8-20.1); Calc. Creatinine Clearance 30 mL/min (70-130); Calcium 9.2 mg/dL (7.8-10.44); Carbon Dioxide 35 mmol/L (23-31); Chloride 87 mmol/L (98-107); Estimated GFR-MDRD 40; Glucose 141 mg/dL (83-110); Magnesium 2.2 mg/dL (1.6-2.6); Phosphorus 2.1 mg/dL (2.3-4.7); Potassium 3.1 mmol/L (3.5-5.1); Sodium 133 mmol/L (136-145)
[2018-02-21] MEDS: Amiodarone 200 MG TAB PO SCH (08:28)
[2018-02-21] MEDS: Allopurinol 300 MG TAB PO SCH (08:28)
[2018-02-21] MEDS: Ferrous Sulfate 325 MG TAB PO SCH ×2 (08:28→17:11)
[2018-02-21] MEDS: NIFEdipine XL 30 MG TAB PO SCH (08:29)
[2018-02-21] MEDS: Folic Acid 1 MG TAB PO SCH (08:29)
[2018-02-21] MEDS: Ascorbic Acid 500 mg Chewable Tablet PO SCH ×2 (08:29→21:23)
[2018-02-21] MEDS: Pantoprazole 40 MG VIAL IVP SCH (08:29)
[2018-02-21] MEDS: Polyethylene Glycol 3350 17 GM Packet PER TUBE SCH (08:29)
[2018-02-21] MEDS: Enoxaparin Sodium 30 MG/0.3 ML SYRINGE SC SCH (08:29)
[2018-02-21] MEDS: Senokot S 8.6-50 MG TAB PO SCH ×2 (08:30→21:23)
[2018-02-21] MEDS ORDERED: Potassium Phosphate 30 MMOL in Sodium Chloride 0.9% 250 ML 250 ML IVPB SCH (09:15)
[2018-02-21] MEDS: Multivitamin W/ Minerals 1 TAB PO SCH (09:21)
[2018-02-21] MEDS: Oxazepam 10 MG CAP PO SCH ×2 (10:34→21:22)
[2018-02-21] MEDS: Bisoprolol Fumarate/HCTZ 10 mg/6.25 mg Tablet PO SCH ×2 (10:34→21:23)
--- NOTE | 2018-02-21 17:26 | EKG ---
Test Reason : STAT Blood Pressure : / mmHG Vent. Rate : 143 BPM Atrial Rate : 143 BPM P-R Int : 000 ms QRS Dur : 076 ms QT Int : 304 ms P-R-T Axes : 000 002 064 degrees QTc Int : 469 ms Sinus tachycardia Nonspecific ST abnormality Abnormal ECG No previous ECGs available Confirmed by DOMINIQUE COLLINS (2) on 02/21/2018 5:25:14 PM Referred By: HENRRY Confirmed By:DOMINIQUE COLLINS
--- NOTE | 2018-02-21 17:34 | EKG ---
Test Reason : Blood Pressure : / mmHG Vent. Rate : 158 BPM Atrial Rate : 394 BPM P-R Int : 000 ms QRS Dur : 080 ms QT Int : 304 ms P-R-T Axes : 000 011 194 degrees QTc Int : 492 ms Atrial fibrillation with rapid ventricular response Abnormal ECG When compared with ECG of 15-FEB-2018 20:55, (Unconfirmed) Atrial fibrillation has replaced Sinus rhythm T wave inversion now evident in Anterolateral leads Confirmed by DOMINIQUE COLLINS (2) on 02/21/2018 5:33:45 PM Referred By: Confirmed By:DOMINIQUE COLLINS
[2018-02-21] MEDS: Atorvastatin Calcium 40 MG TAB PO SCH (21:22)
[2018-02-22] MEDS: Acetaminophen 500 MG TAB PO SCH ×5 (01:20→23:16)
--- NOTE | 2018-02-22 01:47 | PRG ---
DATE OF SERVICE: 02/22/2018 SUBJECTIVE: Patient is status post crush injury to her left lower extremity as well as upper torso. The patient suffered from acute respiratory distress syndrome and also had an episode of atrial fibr illation with RVR. The patient is recovering quite well from her respiratory issue and her amiodaron e was converted from IV to p.o. yesterday. She remained in sinus rhythm overnight. This morning, th e patient states that her pain is controlled. She is tolerating a diet, though she did have some dif ficulty sleeping last night. PHYSICAL EXAMINATION: VITAL SIGNS: Temperature is 97.9, heart rate 79, blood pressure 148/72, respirations 18, oxygen satu ration 100% on 2 liters via nasal cannula. GENERAL: The patient is resting comfortably in bed. She is awake, alert, and appropriate. HEENT: Unremarkable. LUNGS: Clear to auscultation bilaterally with good inspiratory and expiratory effort. HEART: Regular rate and rhythm. ABDOMEN: Soft, flat, nontender with active bowel sounds. EXTREMITIES: Neurovascularly intact x4. LABORATORY FINDINGS: White blood cell count 15.8, hemoglobin 10.4, hematocrit 32.5, platelets 189. Sodium 133, potassium 3.1, chloride 87, CO2 of 35, BUN 70, creatinine 1.30, glucose 141, magnesium 2. 1, phosphorus 2.1. There are no radiographs to review this morning. ASSESSMENT AND PLAN: 1. Status post crush injury to the lower extremity and torso. 2. Resolved acute respiratory distress syndrome. 3. Acute hypokalemia. 4. Acute phosphatemia. 5. Acute kidney injury. 6. Resolved atrial fibrillation with rapid ventricular response. Plan will be to move the patient to the surgical floor. Continue physical and occupational therapy a nd await placement decision. We will also replace her electrolytes this morning. The evaluation and examination were discussed with Dr. Cazares this morning.
[2018-02-22 06:43] LABS: Anion Gap 15 mmol/L (10-20); BUN (Urea Nitrogen) 53 mg/dL (9.8-20.1); Calc. Creatinine Clearance 38 mL/min (70-130); Calcium 8.9 mg/dL (7.8-10.44); Carbon Dioxide 29 mmol/L (23-31); Chloride 94 mmol/L (98-107); Estimated GFR-MDRD 46; Glucose 122 mg/dL (83-110); Magnesium 2.5 mg/dL (1.6-2.6); Phosphorus 3.8 mg/dL (2.3-4.7); Potassium 4.2 mmol/L (3.5-5.1); Sodium 134 mmol/L (136-145)
[2018-02-22 06:46] LABS: Hemoglobin 10.3 g/dL (12.0-16.0); Mean Corpuscular HGB CONC 32.6 g/dL (32.0-36.0); Mean Corpuscular Hemoglobin 31.3 pg (27.0-31.0); Mean Corpuscular Volume 95.9 fL (78.0-98.0); Platelet Count 203 thou/uL (130-400); RBC Distribution Width 13.8 % (11.5-14.5); White Blood Cell (WBC) Count 13.5 thou/uL (4.8-10.8)
[2018-02-22 07:23] LABS: Band 20 % (5-11); Lymphocytes 5 % (21-51); MDiff Complete? YES; Monocytes 6 % (0-10); Neutrophil 69 % (42-75)
[2018-02-22] MEDS: Enoxaparin Sodium 30 MG/0.3 ML SYRINGE SC SCH (09:10)
[2018-02-22] MEDS: Ferrous Sulfate 325 MG TAB PO SCH ×2 (09:11→16:52)
[2018-02-22] MEDS: Oxazepam 10 MG CAP PO SCH ×2 (09:11→21:19)
[2018-02-22] MEDS: Allopurinol 300 MG TAB PO SCH (09:11)
[2018-02-22] MEDS: Multivitamin W/ Minerals 1 TAB PO SCH (09:11)
[2018-02-22] MEDS: Ascorbic Acid 500 mg Chewable Tablet PO SCH ×2 (09:12→21:19)
[2018-02-22] MEDS: Bisoprolol Fumarate/HCTZ 10 mg/6.25 mg Tablet PO SCH ×2 (09:12→21:19)
[2018-02-22] MEDS: Folic Acid 1 MG TAB PO SCH (09:12)
[2018-02-22] MEDS: Polyethylene Glycol 3350 17 GM Packet PER TUBE SCH (09:12)
[2018-02-22] MEDS: Amiodarone 200 MG TAB PO SCH (09:12)
[2018-02-22] MEDS: Senokot S 8.6-50 MG TAB PO SCH ×2 (09:12→21:20)
[2018-02-22] MEDS: NIFEdipine XL 30 MG TAB PO SCH (09:40)
--- NOTE | 2018-02-22 13:50 | HP ---
CHIEF COMPLAINT: Wounds of bilateral thighs. HISTORY OF PRESENT ILLNESS: The patient is a 77-year-old female who sustained crush injuries to her bilateral lower extremities as well as torso and upper extremities in an accident approximately 10 da ys ago. Plastic Surgery has been consulted for skin that is evolved in to being nonviable on her rosa isela ateral inner thighs. PAST MEDICAL HISTORY: Hypertension, hyperlipidemia, history of breast cancer, and history of skin ca ncer. PAST SURGICAL HISTORY: Lumpectomy and hysterectomy as well as bronchoscopy and surgical closure of w ounds. ALLERGIES: CIPRO and SULFA. SOCIAL HISTORY: The patient is and works regularly. LABORATORY DATA: Blood count white blood count 13.5, which is trending down from a high 3 days ago o f 23.8, hemoglobin stable at 10.3. PHYSICAL EXAMINATION: VITAL SIGNS: Reviewed in the chart. HEENT: Normocephalic, atraumatic. Breathing unlabored. EXTREMITIES: Right upper extremity has a well healing incision with suzi. Bilateral lower extrem ities have ecchymosis as well as nonviable skin. Immediately, right greater than left. The lateral aspects appear to be in better repair. There is some palpable fluid underneath the skin as well as a n odor. ASSESSMENT: Crush injury, bilateral lower extremities. The skin per the patient's family's report h as progressively looked less viable. PLAN: For debridement. I anticipate a debridement with wound VAC application tomorrow followed by a period of wound healing ranging from anywhere from days to weeks. This will be followed presumably by split-thickness skin grafting. I discussed pulmonary toilet and the importance of it with the pat ient for deep breathing as well as ambulation. This will need to be worked out even with the wound V AC.
[2018-02-22] MEDS ORDERED: Ondansetron HCl/PF 4 MG/2 ML Vial ONE (15:40)
[2018-02-22] MEDS ORDERED: PROPOFOL 200 MG/20 ML VIAL ONE (15:40)
[2018-02-22] MEDS ORDERED: Lidocaine 1% PF 5 ML VIAL ONE (15:40)
[2018-02-22] MEDS ORDERED: Fentanyl 100 MCG/2 ML VIAL ONE (18:20)
[2018-02-22] MEDS ORDERED: HYDROmorphone 2 MG/ML VIAL SLOW IVP PRN (20:14)
[2018-02-22] MEDS ORDERED: Ondansetron HCl/PF 4 MG/2 ML Vial IVP PRN (20:14)
[2018-02-22] MEDS ORDERED: Morphine Sulfate 2 MG/ML SYRINGE SLOW IVP PRN (20:14)
[2018-02-22] MEDS ORDERED: Promethazine HCl 25 MG/ML VIAL IM PRN (20:14)
[2018-02-22] MEDS ORDERED: Meperidine HCl/PF 25 MG/ML VIAL SLOW IVP PRN (20:14)
[2018-02-22] MEDS ORDERED: Promethazine HCl 25 MG/ML VIAL SLOW IVP PRN (20:14)
[2018-02-22] MEDS: traMADol HCl 50 MG TAB PO PRN (21:18)
[2018-02-22] MEDS: Atorvastatin Calcium 40 MG TAB PO SCH (21:19)
--- NOTE | 2018-02-23 02:16 | PRG ---
DATE OF SERVICE: 02/23/2018 SUBJECTIVE: The patient is hospital day 10 status post crush injury to her bilateral lower extremiti es. The patient also suffered from acute respiratory distress syndrome and atrial fibrillation with RVR. While here in the hospital, her respiratory issues have resolved and her atrial fibrillation wi th RVR is now rate controlled on p.o. amiodarone. Overnight, the patient had no issues. This mornin g, she complains primarily of right knee pain and some left knee pain in the area of her wounds. PHYSICAL EXAMINATION: VITAL SIGNS: Temperature is 98.4, heart rate 91, blood pressure 138/74, respirations 16, oxygen satu ration is 96% on room air. GENERAL: The patient is resting comfortably in bed. She is awake and appropriate. HEENT: Unremarkable. LUNGS: Clear to auscultation bilaterally. HEART: Regular rate and rhythm. ABDOMEN: Soft, flat, nontender with active bowel sounds. EXTREMITIES: Her dressings were taken down this morning and it was noted that her right thigh wound specifically had some very dusky areas with what appeared to also be some necrotic spots. Her left s rocio had some smaller patches of dusky skin and smaller necrotic spots. All extremities were neurovas cularly intact. LABORATORY FINDINGS: White blood cell count 13.5, hemoglobin 10.3, hematocrit 31.7, platelets 203. Sodium 134, potassium 4.2, chloride 94, CO2 of 29, BUN 53, creatinine 1.15, glucose 122, magnesium 2. 5, phosphorus 3.8. There are no radiographs to review this morning. ASSESSMENT: 1. Status post crush injury to bilateral lower extremities and torso. 2. Resolved acute respiratory distress syndrome. 3. Rate controlled atrial fibrillation. PLAN: Plan will be to consult Plastic Surgery to evaluate her wounds to see if she is in needing of irrigation, debridement, and possible split-thickness skin grafts at some point. We will hold her tr olu to swing bed until the discussion with Dr. Soriano is made. The evaluation was done with Dr. Ajit skelton this morning during rounds.
[2018-02-23] MEDS: Acetaminophen 500 MG TAB PO SCH ×3 (05:41→18:51)
[2018-02-23 06:09] LABS: Anion Gap 10 mmol/L (10-20); BUN (Urea Nitrogen) 40 mg/dL (9.8-20.1); Calc. Creatinine Clearance 41 mL/min (70-130); Calcium 8.6 mg/dL (7.8-10.44); Carbon Dioxide 31 mmol/L (23-31); Chloride 97 mmol/L (98-107); Estimated GFR-MDRD 49; Glucose 163 mg/dL (83-110); Magnesium 1.8 mg/dL (1.6-2.6); Phosphorus 3.8 mg/dL (2.3-4.7); Sodium 134 mmol/L (136-145)
[2018-02-23 06:45] LABS: Hemoglobin 8.1 g/dL (12.0-16.0); Mean Corpuscular HGB CONC 33.3 g/dL (32.0-36.0); Mean Corpuscular Hemoglobin 32.1 pg (27.0-31.0); Mean Corpuscular Volume 96.4 fL (78.0-98.0); Mean Platelet Volume 9.3 fL (7.4-10.4); Platelet Count 242 thou/uL (130-400); RBC Distribution Width 13.9 % (11.5-14.5); Red Blood Cell (RBC) Count 2.51 mill/uL (4.20-5.40); White Blood Cell (WBC) Count 9.5 thou/uL (4.8-10.8)
[2018-02-23 06:52] LABS: Band 20 % (5-11); Eosinophils 2 % (0-10); Lymphocytes 4 % (21-51); MDiff Complete? YES; Metamyelocyte 4 % (0-0); Monocytes 6 % (0-10); Neutrophil 64 % (42-75)
[2018-02-23] MEDS: Oxazepam 10 MG CAP PO SCH ×2 (08:36→21:46)
[2018-02-23] MEDS: Ferrous Sulfate 325 MG TAB PO SCH ×2 (08:36→18:52)
[2018-02-23] MEDS: Allopurinol 300 MG TAB PO SCH (09:02)
[2018-02-23] MEDS: Bisoprolol Fumarate/HCTZ 10 mg/6.25 mg Tablet PO SCH ×2 (09:02→21:46)
[2018-02-23] MEDS: Folic Acid 1 MG TAB PO SCH (09:02)
[2018-02-23] MEDS: Multivitamin W/ Minerals 1 TAB PO SCH (09:03)
[2018-02-23] MEDS: Ascorbic Acid 500 mg Chewable Tablet PO SCH ×2 (09:03→21:46)
[2018-02-23] MEDS: Senokot S 8.6-50 MG TAB PO SCH ×2 (09:03→20:43)
[2018-02-23] MEDS: Amiodarone 200 MG TAB PO SCH (09:03)
[2018-02-23] MEDS: NIFEdipine XL 30 MG TAB PO SCH (09:04)
[2018-02-23] MEDS: Polyethylene Glycol 3350 17 GM Packet PER TUBE SCH (09:05)
[2018-02-23] MEDS: Enoxaparin Sodium 30 MG/0.3 ML SYRINGE SC SCH (09:36)
[2018-02-23] MEDS ORDERED: Loperamide HCl 2 MG CAP PO PRN (13:47)
[2018-02-23] MEDS: traMADol HCl 50 MG TAB PO PRN (18:51)
[2018-02-23] MEDS ORDERED: Ketorolac Tromethamine 30 MG/ML VIAL IVP SCH (21:45)
[2018-02-23] MEDS ORDERED: Fentanyl 100 MCG/2 ML VIAL SLOW IVP SCH (21:45)
[2018-02-23] MEDS: Atorvastatin Calcium 40 MG TAB PO SCH (21:46)
[2018-02-24] MEDS: Acetaminophen 500 MG TAB PO SCH ×5 (01:07→23:38)
[2018-02-24] MEDS: traMADol HCl 50 MG TAB PO PRN ×2 (01:08→21:15)
[2018-02-24] MEDS: diphenhydrAMINE 25 MG CAP PO PRN ×2 (01:08→21:16)
--- NOTE | 2018-02-24 05:30 | PRG ---
DATE OF SERVICE: 02/23/2018 The patient is status post crush injury to the bilateral lower extremities. Yesterday, she underwent evaluation and examination by Plastic Surgery and was taken to the operating room for a wound debrid ement by report. Dr. Soriano had to remove significant amount of soft tissue that was devitalized on he r right thigh and a small amount on her left. She did tolerate this procedure well, but this is defi nitely a significant setback for her. Plan will be for her to return to possibly the operating room on Friday if a bedside procedure cannot be done. The patient otherwise is tolerating a diet and h er pain is controlled. PHYSICAL EXAMINATION: VITAL SIGNS: Temperature is 97.8, heart rate 87, blood pressure 133/75, respirations 19, oxygen satu ration 95% on room air. GENERAL: The patient is resting comfortably in bed. She is awake and appropriate. HEENT: Unremarkable. LUNGS: Clear to auscultation bilaterally. HEART: Regular rate and rhythm. ABDOMEN: Soft, flat, nontender with active bowel sounds. EXTREMITIES: Her postoperative dressings are clean, dry, and intact. She is neurovascularly intact distally. LABORATORY DATA: White blood cell count 9.5, hemoglobin 8.1, hematocrit 24.1, platelets 242. Sodium 134, potassium 4.0, chloride 97, CO2 31, BUN 40, creatinine 1.07, glucose 163, magnesium 1.8, phosph orus 3.8. There are no radiographs to review this morning. ASSESSMENT AND PLAN: 1. Status post crush injury to bilateral lower extremities, status post irrigation and excision of w ounds. 2. Resolved acute respiratory distress syndrome. 3. Rate controlled atrial fibrillation. Plan will be to continue supportive care. Continue physical and occupational therapy and await repea t dressing changes. The evaluation and examination were done with Dr. Cazares this morning.
[2018-02-24] MEDS: Oxazepam 10 MG CAP PO SCH ×2 (08:31→21:15)
[2018-02-24] MEDS: Ascorbic Acid 500 mg Chewable Tablet PO SCH ×2 (08:32→21:16)
[2018-02-24] MEDS: NIFEdipine XL 30 MG TAB PO SCH (08:32)
[2018-02-24] MEDS: Senokot S 8.6-50 MG TAB PO SCH ×2 (08:32→20:47)
[2018-02-24] MEDS: Multivitamin W/ Minerals 1 TAB PO SCH (08:34)
[2018-02-24] MEDS: Bisoprolol Fumarate/HCTZ 10 mg/6.25 mg Tablet PO SCH ×2 (08:34→21:16)
[2018-02-24] MEDS: Ferrous Sulfate 325 MG TAB PO SCH ×2 (08:34→18:47)
[2018-02-24] MEDS: Allopurinol 300 MG TAB PO SCH (08:34)
[2018-02-24] MEDS: Amiodarone 200 MG TAB PO SCH (08:35)
[2018-02-24] MEDS: Folic Acid 1 MG TAB PO SCH (08:35)
[2018-02-24] MEDS: Enoxaparin Sodium 30 MG/0.3 ML SYRINGE SC SCH (08:35)
[2018-02-24] MEDS: Polyethylene Glycol 3350 17 GM Packet PER TUBE SCH (09:20)
[2018-02-24] MEDS: MEROPENEM 1 GM/50 ML 1 GM in Premix Bag 1 BAG IVPB SCH ×2 (17:09→23:32)
--- NOTE | 2018-02-24 19:55 | PRG ---
DATE OF SERVICE: 02/21/2018 HISTORY OF PRESENT ILLNESS: The patient is status post crush injury to bilateral lower extremities. She is hospital day #11. Two days ago, she went for evaluation and examination by Plastic Surgery for wound debridement by consultation report. The plan is for her to return to the operating room on tomorrow as the bedside procedure cannot be done. The patient currently is not eating as much. Family is encouraging her and is aware of the need of protein intake. Her pain is controlled at this time. Family also reports that she has been getting up to walk to the restroom. PHYSICAL EXAMINATION: VITAL SIGNS: Temperature 97.8, pulse 78, respirations 14, SPO2 is 94% on room air, blood pressure 125/66. GENERAL: The patient is resting comfortably in bed. She is awake, alert, and appropriate. HEENT: Unremarkable. LUNGS: Clear bilaterally. HEART: Regular rate and rhythm. ABDOMEN: Soft, nontender. EXTREMITIES: Postoperative dressings are clean, dry, and intact. She is neurovascularly intact distally. LABORATORY DATA: There are no labs to evaluate this morning. ASSESSMENT: 1. Status post crush injury to bilateral lower extremities, status post irrigation and excision of the wound. 2. Resolved acute respiratory distress syndrome. 3. Rate controlled atrial fibrillation. PLAN: Plan will be to continue supportive care. Continue physical and occupational therapy. We will do a calorie count on the patient as she has not been eating and we will also place the patient on Zosyn due to her tissue culture results showing gram-negative rods. DICTATED BY: Aziza Sotelo, Nurse Practitioner Student JASWINDER
[2018-02-24] MEDS: Atorvastatin Calcium 40 MG TAB PO SCH (21:16)
[2018-02-25] MEDS: Acetaminophen 500 MG TAB PO SCH ×3 (04:59→17:10)
[2018-02-25] MEDS: Oxazepam 10 MG CAP PO SCH ×2 (09:08→21:31)
[2018-02-25] MEDS: Senokot S 8.6-50 MG TAB PO SCH ×2 (09:09→21:30)
[2018-02-25] MEDS: Ascorbic Acid 500 mg Chewable Tablet PO SCH ×2 (09:09→21:31)
[2018-02-25] MEDS: traMADol HCl 50 MG TAB PO PRN ×3 (09:09→21:44)
[2018-02-25] MEDS: Amiodarone 200 MG TAB PO SCH (09:09)
[2018-02-25] MEDS: Allopurinol 300 MG TAB PO SCH (09:11)
[2018-02-25] MEDS: Folic Acid 1 MG TAB PO SCH (09:12)
[2018-02-25] MEDS: Enoxaparin Sodium 30 MG/0.3 ML SYRINGE SC SCH (09:12)
[2018-02-25] MEDS: Ferrous Sulfate 325 MG TAB PO SCH ×2 (09:12→17:10)
[2018-02-25] MEDS: Polyethylene Glycol 3350 17 GM Packet PER TUBE SCH (09:19)
[2018-02-25] MEDS: MEROPENEM 1 GM/50 ML 1 GM in Premix Bag 1 BAG IVPB SCH ×2 (09:38→17:46)
[2018-02-25] MEDS: NIFEdipine XL 30 MG TAB PO SCH (09:39)
[2018-02-25] MEDS: Bisoprolol Fumarate/HCTZ 10 mg/6.25 mg Tablet PO SCH ×2 (09:40→22:49)
[2018-02-25] MEDS: Multivitamin W/ Minerals 1 TAB PO SCH (09:40)
[2018-02-25] MEDS ORDERED: Morphine 4 MG/ML VIAL IV PRN ×2 (10:05)
--- NOTE | 2018-02-25 16:59 | PRG ---
DATE OF SERVICE: 02/25/2018 HISTORY OF PRESENT ILLNESS: This is a 77-year-old female status post bilateral crush injuries to the lower extremities. She is hospital day 12. The patient is status post wound evaluation by Plastic Surgery with debridement 3 days ago. The patient just received bedside wound care reporting that it took them approximately 1 hour and at this time she feels very tired from the 1 hour bedside wound VA C change. The patient reports passing gas, but has not had a bowel movement in 2 days although she d id have diarrhea before that and Imodium was given which stopped her diarrhea. The patient reports h er pain is controlled at this time. She continues to get up and walk to the restroom. PHYSICAL EXAMINATION: VITAL SIGNS: Temperature 98.5, pulse 89, respirations 14, SpO2 95% on room air, blood pressure 124/6 2. GENERAL: The patient is resting comfortably in bed. She is awake and alert at this time, although s he states she feels tired from her wound VAC change. HEENT: Unremarkable. CHEST: Lungs clear bilaterally. CARDIOVASCULAR: Regular rate and rhythm. ABDOMEN: Soft, nontender, nondistended. EXTREMITIES: Postoperative dressing is clean and dry, and intact and she remains neurovascularly int act distally. LABORATORY DATA: There are no labs to evaluate this morning. IMPRESSION: 1. Status post crush injury to bilateral lower extremities, status post irrigation and incision of t he wounds. 2. Rate controlled atrial fibrillation. PLAN: The plan will be to continue supportive care. Continue physical and occupational therapy. Th e patient has been encouraged to get up out of bed. We will repeat her chemistry tomorrow morning. We will discontinue her Imodium. She has not had a bowel movement in 2 days. The plan is for the nnamdi lanre to go to rehab swing bed in [place] sometime this week as long as Plastic Surgery is okay with that plan.
--- NOTE | 2018-02-25 19:15 | PRG ---
DATE OF SERVICE: 02/25/2018 SUBJECTIVE: The patient tolerated her dressing change recently well today. She was even able to amb ulate down the nguyen. Cultures grew out Enterococcus as well as other bugs. Dr. Morgan have started t he patient on Cipro. I appreciate his expertise. OBJECTIVE: SKIN: There is a wound VAC in place. ASSESSMENT AND PLAN: A 77-year-old female with complicated bilateral thigh wounds with infection. S he has undergone extensive debridement and now her first successful wound VAC change. I discussed wh at I anticipated to be her course going forward. When she can tolerate wound VAC changes with only p .o. medication, changing to either a step down unit for rehabilitation and/or home healthcare inset o f or after that. After a period of time, I will expect her wounds to improve to where she can tolera te skin grafts. This will be done likely on an inpatient basis in the future. I discussed the impor tance of nutrition with the patient as well as pulmonary toilet.
[2018-02-25] MEDS: Atorvastatin Calcium 40 MG TAB PO SCH (21:30)
[2018-02-25] MEDS: Ampicillin/Sulbactam 3 GM VIAL IM SCH (21:30)
[2018-02-25] MEDS: Gabapentin 300 MG CAP PO SCH (21:30)
[2018-02-26] MEDS: Acetaminophen 500 MG TAB PO SCH ×5 (00:55→16:47)
[2018-02-26] MEDS: Ampicillin/Sulbactam 3 GM VIAL IM SCH ×2 (02:28→16:33)
--- NOTE | 2018-02-26 02:59 | CON ---
DATE OF CONSULTATION: 02/25/2018 REASON FOR CONSULTATION: Concern with possible wound infection. HISTORY OF PRESENT ILLNESS: A 77-year-old patient who has a history of hypertension, breast cancer i n remission after radiation therapy and lumpectomy, who sustained an avulsion of the right leg soft t issues/skin after accident in her home. She was admitted on 02/2013 and had an initial debridement p rocedure by Dr. Osorio. Lacerations with pulse irrigated devitalized tissue and skin excised sharply and hemostasis carried out with cautery. There was gross contamination of grass and dirt. This was thoroughly irrigated. A procedure on 02/14/2018 was carried out, which was a fiberoptic bronchoscopy . There was another fiberoptic bronchoscopy on 02/17/[address] Cazares. During this time, the patie nt was in the ICU with respiratory compromise. She was eventually extubated and transferred to the 3 rd floor. Bilateral pulmonary and parenchymal changes improved. She is awake and alert, oriented. Denies headaches, visual symptoms, sore throat, odynophagia, dysphagia, no cough or sputum production or chest pain, no abdominal pain or diarrhea. No genitourinary symptoms. The patient is voiding on their own. PAST MEDICAL HISTORY: Includes hypertension, hyperlipidemia, breast cancer managed with lumpectomy a nd radiation therapy. She also had a hysterectomy. ALLERGIES: SULFA DRUGS. There is a reported allergy to CIPRO, but neither her personal physician or her family remembered any ciprofloxacin reaction. CURRENT MEDICATIONS: Meropenem, p.r.n. meds. She also takes allopurinol inhalers. PHYSICAL EXAMINATION: VITAL SIGNS: T-max 99, currently 98.3; blood pressure 180/93, pulse 91, respirations 16, O2 sat 98%. GENERAL: Appears in no distress. She has both right and left thigh is covered with dressing, which was not removed. We were able to review the photos from the last wound and the wound appears healthy in the left thigh and in the right thigh. The posterior aspect as more soft tissue loss, but appear s healthy as well. She has a peripheral IV access. No lymphadenopathy. HEENT: Ocular movements conjugate. Sclerae white. Pupils are equal. Oral cavity normal. NECK: Supple, no jugular venous distention. LUNGS: With symmetric air entry. HEART: S1, S2, no S3 or S4. ABDOMEN: Soft, not distended or tender. No ascites. No bladder distention. Pulses are excellent i n lower extremities. She is able to move extremities with some limitations from the wounds. NEUROLOGIC: Cognitive function appears to be intact. LABORATORY DATA: White cell count is down to 9.5, hemoglobin 8.1, platelets 242 with 20% bands. Sod ium 134, creatinine is down to 1.07 and AST and ALT within normal limits and alkaline phosphatase is 39. CK was 122, albumin 3.3, globulin 2.1. We have cultures from the site. We have initial culture s from the 02/17/2018 with Vonnie, from 02/22/2018 with Stenotrophomonas maltophilia, 2 different sa mples Bacillus and Enterococcus. ASSESSMENT: History of breast cancer in remission after lumpectomy and radiation therapy in an accid ent with avulsion of soft tissue of right and left thigh. The debridement has been carried out. The appearance of the tissue is healthy at this time, but there is a concern with the organisms isolated particularly Stenotrophomonas maltophilia which has a notoriously broad resistant to various antimic robial regimens. In the phase of her reported allergy, there has been concern with the antimicrobial therapy. It looks like she will be able to use levofloxacin and will switch her to Unasyn and levof loxacin from the current regimen. Duration of therapy is short. I do not anticipate more than a wee k of treatment, could eventually be transitioned to oral antimicrobial therapy.
[2018-02-26 05:12] LABS: #Eosinphils 0.3 thou/uL (0.0-0.7); #Lymphocytes 0.9 thou/uL (1.20-3.40); #Neutrophils 10.3 thou/uL (1.40-6.50); %Basophils 0.1 % (0.0-1.0); %Eosinophils 2.2 % (0.0-10.0); %Lymphocytes 6.9 % (21.0-51.0); %Monocytes 7.7 % (0.0-10.0); %Neutrophils 83.2 % (42.0-75.0); Hemoglobin 6.6 g/dL (12.0-16.0); Mean Corpuscular HGB CONC 32.8 g/dL (32.0-36.0); Mean Corpuscular Hemoglobin 31.9 pg (27.0-31.0); Mean Corpuscular Volume 97.2 fL (78.0-98.0); Platelet Count 415 thou/uL (130-400); RBC Distribution Width 13.9 % (11.5-14.5); Red Blood Cell (RBC) Count 2.08 mill/uL (4.20-5.40); White Blood Cell (WBC) Count 12.4 thou/uL (4.8-10.8)
[2018-02-26 05:24] LABS: Anion Gap 11 mmol/L (10-20); BUN (Urea Nitrogen) 24 mg/dL (9.8-20.1); Calc. Creatinine Clearance 50 mL/min (70-130); Calcium 9.1 mg/dL (7.8-10.44); Carbon Dioxide 24 mmol/L (23-31); Chloride 103 mmol/L (98-107); Estimated GFR-MDRD 62; Glucose 138 mg/dL (83-110); Magnesium 1.4 mg/dL (1.6-2.6); Potassium 4.9 mmol/L (3.5-5.1); Sodium 133 mmol/L (136-145)
[2018-02-26] MEDS: Bisoprolol Fumarate/HCTZ 10 mg/6.25 mg Tablet PO SCH ×2 (09:16→22:21)
[2018-02-26] MEDS: Allopurinol 300 MG TAB PO SCH (09:16)
[2018-02-26] MEDS: Amiodarone 200 MG TAB PO SCH (09:16)
[2018-02-26] MEDS: Ferrous Sulfate 325 MG TAB PO SCH ×2 (09:17→16:48)
[2018-02-26] MEDS: Multivitamin W/ Minerals 1 TAB PO SCH (09:17)
[2018-02-26] MEDS: Senokot S 8.6-50 MG TAB PO SCH ×2 (09:18→21:19)
[2018-02-26] MEDS: Folic Acid 1 MG TAB PO SCH (09:18)
[2018-02-26] MEDS: Ascorbic Acid 500 mg Chewable Tablet PO SCH ×2 (09:19→21:19)
[2018-02-26] MEDS: Enoxaparin Sodium 30 MG/0.3 ML SYRINGE SC SCH (09:22)
[2018-02-26] MEDS: Polyethylene Glycol 3350 17 GM Packet PER TUBE SCH (09:23)
[2018-02-26] MEDS: NIFEdipine XL 30 MG TAB PO SCH (10:26)
[2018-02-26] MEDS: Oxazepam 10 MG CAP PO SCH (10:30)
[2018-02-26] MEDS: Ampicillin/Sulbactam 3 GM in Sodium Chloride 0.9% 100 ML IVPB SCH ×3 (10:44→21:15)
--- NOTE | 2018-02-26 14:03 | EKG ---
Test Reason : Blood Pressure : / mmHG Vent. Rate : 105 BPM Atrial Rate : 105 BPM P-R Int : 160 ms QRS Dur : 076 ms QT Int : 382 ms P-R-T Axes : 061 001 061 degrees QTc Int : 504 ms Sinus tachycardia Nonspecific ST abnormality Abnormal ECG Confirmed by ODILIA CARLOS, DOMO ([id number]), desk editor SOFY TOLENTINO ([id number]) on 02/26/2018 2:02:10 PM Referred By: Confirmed By:DOMO HARTLEY MD
[2018-02-26] MEDS ORDERED: Clopidogrel Bisulfate 75 MG TAB ONE (16:34)
[2018-02-26] MEDS ORDERED: Sodium Chloride 0.9% 10 ML ONE (16:36)
[2018-02-26] MEDS ORDERED: Magnesium Sulfate 3 GM in Sodium Chloride 0.9% 100 ML IVPB SCH (17:30)
--- NOTE | 2018-02-26 17:44 | PRG ---
DATE OF SERVICE: 02/26/2018 SUBJECTIVE: Ms. Merino is a 77-year-old woman who is status post crush injury to lower extremities. The patient is awake and alert today. She reports better appetite and pain control. Daughter is at bedside during this visit. OBJECTIVE: VITAL SIGNS: This morning includes blood pressure 131/84, pulse 91, respiratory rate 18, temperature 98.4 degrees Fahrenheit, oxygen saturation is 98% on room air. HEENT: Reveals normocephalic and atraumatic. HEART: Reveals regular rate and rhythm. No murmurs or gallops auscultated. LUNGS: Clear to auscultation bilaterally. Breathing is regular and unlabored. ABDOMEN: Soft, nontender, nondistended. EXTREMITIES: Reveals 2+ radial and pedal pulses bilaterally. No ankle edema is present. She has wo und VAC dressings to both lower extremities. NEUROLOGIC: Reveals no focal deficits present. LABORATORY FINDINGS: Today includes a CBC with 12,400 white blood cells, hemoglobin and hematocrit 6 .6 and 20.2 respectively. Platelet count is 415,000. Metabolic profile, sodium 133, potassium is 4.9, chloride is 103, bicarbonate is 24, BUN is 24, creat inine 0.88, glucose 138, magnesium 1.4, phosphorus 3.0. IMPRESSION: 1. Post-injury day #13 status post crush injury to lower extremities. 2. Acute hypomagnesemia. 3. Acute blood loss anemia. 4. Resolved acute metabolic encephalopathy. PLAN: 1. Correct abnormal electrolytes. 2. The patient will be transfused with packed red blood cells. 3. I will continue with physical and occupational therapy to increase activity as tolerated. 4. The patient is being evaluated by PM and R for possible transfer to inpatient rehabilitation once she has been deemed stable from a plastic surgical standpoint. Above findings and plan discussed wi th the patient and her daughter at bedside who indicated understanding of information given. I have answered all their questions.
[2018-02-26] MEDS: Gabapentin 300 MG CAP PO SCH (21:19)
[2018-02-26] MEDS: Fish Oil 1,000 MG CAP PO SCH (21:19)
[2018-02-26] MEDS: Atorvastatin Calcium 40 MG TAB PO SCH (21:19)
[2018-02-27] MEDS: Acetaminophen 500 MG TAB PO SCH ×5 (00:09→23:25)
[2018-02-27] MEDS: Ampicillin/Sulbactam 3 GM in Sodium Chloride 0.9% 100 ML IVPB SCH ×4 (02:55→20:07)
[2018-02-27 06:16] LABS: Hemoglobin 9.7 g/dL (12.0-16.0); Mean Corpuscular HGB CONC 32.7 g/dL (32.0-36.0); Mean Corpuscular Hemoglobin 30.7 pg (27.0-31.0); Mean Corpuscular Volume 93.9 fL (78.0-98.0); Mean Platelet Volume 7.9 fL (7.4-10.4); Platelet Count 454 thou/uL (130-400); RBC Distribution Width 14.6 % (11.5-14.5); Red Blood Cell (RBC) Count 3.15 mill/uL (4.20-5.40); White Blood Cell (WBC) Count 11.9 thou/uL (4.8-10.8)
[2018-02-27 06:22] LABS: Anion Gap 14 mmol/L (10-20); BUN (Urea Nitrogen) 28 mg/dL (9.8-20.1); Calc. Creatinine Clearance 43 mL/min (70-130); Calcium 9.3 mg/dL (7.8-10.44); Carbon Dioxide 24 mmol/L (23-31); Chloride 103 mmol/L (98-107); Estimated GFR-MDRD 52; Glucose 119 mg/dL (83-110); Magnesium 2.4 mg/dL (1.6-2.6); Phosphorus 3.6 mg/dL (2.3-4.7); Potassium 4.6 mmol/L (3.5-5.1); Sodium 136 mmol/L (136-145)
[2018-02-27 06:39] LABS: Band 19 % (5-11); Eosinophils 1 % (0-10); Lymphocytes 5 % (21-51); MDiff Complete? YES; Monocytes 10 % (0-10); Neutrophil 65 % (42-75); Nucleated RBC 1 % (0)
[2018-02-27] MEDS ORDERED: NIFEdipine XL 30 MG TAB PO SCH (09:00)
[2018-02-27] MEDS: traMADol HCl 50 MG TAB PO PRN ×3 (09:24→20:14)
[2018-02-27] MEDS: Senokot S 8.6-50 MG TAB PO SCH ×2 (09:25→20:07)
[2018-02-27] MEDS: Calcium Carbonate 500 MG TAB PO SCH (09:26)
[2018-02-27] MEDS: Ferrous Sulfate 325 MG TAB PO SCH ×2 (09:26→17:29)
[2018-02-27] MEDS: Allopurinol 300 MG TAB PO SCH (09:26)
[2018-02-27] MEDS: Multivitamin W/ Minerals 1 TAB PO SCH (09:27)
[2018-02-27] MEDS: Folic Acid 1 MG TAB PO SCH (09:27)
[2018-02-27] MEDS: Ascorbic Acid 500 mg Chewable Tablet PO SCH ×2 (09:27→20:07)
[2018-02-27] MEDS: NIFEdipine XL 30 MG TAB PO SCH (09:28)
[2018-02-27] MEDS: Enoxaparin Sodium 30 MG/0.3 ML SYRINGE SC SCH (09:28)
[2018-02-27] MEDS: Polyethylene Glycol 3350 17 GM Packet PER TUBE SCH (09:28)
[2018-02-27] MEDS: Bisoprolol Fumarate/HCTZ 10 mg/6.25 mg Tablet PO SCH ×2 (09:29→20:07)
[2018-02-27] MEDS: Amiodarone 200 MG TAB PO SCH (09:29)
--- NOTE | 2018-02-27 15:05 | PRG ---
DATE OF SERVICE: 02/27/2018 SUBJECTIVE: Ms. Merino is a 77-year-old woman who is post-injury day #14 status post crush injury to lower extremity. The patient suffered an extensive injury to the lower extremity soft injury resulted in tissue loss. Wound VAC has been in place. Today, patient is awake and alert. She is quite interactive. She par ticipated with physical and occupational therapy. She reports better appetite and improved pain cont rol. OBJECTIVE: VITAL SIGNS: Today includes blood pressure 128/67, pulse is 88, respiratory rate is 12, temperature is 97.8 degrees Fahrenheit, and oxygen saturation is 99% on room air. HEART: Reveals regular rate and rhythm, no murmurs or gallops auscultated. LUNGS: Clear to auscultation bilaterally. Breathing regular and unlabored. ABDOMEN: Soft, nontender, nondistended. NEUROLOGIC: Reveals no focal deficits. EXTREMITIES: Reveals 2+ radial and pedal pulses bilaterally. No ankle edema is present. Wound VAC remains in place returning scant serous fluid. LABORATORY DATA: Today includes CBC with 11,900 white blood cells, hemoglobin and hematocrit 9.7 and 29.6 respectively. Platelet count is 454,000. Metabolic profile: Sodium 136, potassium is 4.6, chloride is 103, bicarbonate is 24, BUN 28, creatin ine is 1.02, glucose 119, magnesium 2.4, phosphorus 3.6. IMPRESSION: 1. Post-injury #14 status post lower extremity crush injury. 2. Resolved acute metabolic encephalopathy. PLAN: Continue with physical and occupational therapy. The patient is being evaluated by PM&R for possible inpatient rehabilitation once Plastic Surgery miley ms stable for discharge.
[2018-02-27] MEDS: Gabapentin 300 MG CAP PO SCH (20:07)
[2018-02-27] MEDS: Fish Oil 1,000 MG CAP PO SCH (20:07)
[2018-02-27] MEDS: Atorvastatin Calcium 40 MG TAB PO SCH (20:07)
[2018-02-27] MEDS: Zolpidem Tartrate 5 MG TAB PO PRN (20:14)
[2018-02-28 01:49] VITALS: BMI 23.6
[2018-02-28] MEDS: Ampicillin/Sulbactam 3 GM in Sodium Chloride 0.9% 100 ML IVPB SCH ×4 (01:52→20:40)
[2018-02-28] MEDS ORDERED: Lactinex Tablet PO SCH (02:00)
[2018-02-28] MEDS: Acetaminophen 500 MG TAB PO SCH ×4 (06:06→23:00)
[2018-02-28] MEDS: Polyethylene Glycol 3350 17 GM Packet PER TUBE SCH (08:19)
[2018-02-28] MEDS: Senokot S 8.6-50 MG TAB PO SCH ×2 (08:19→20:41)
[2018-02-28] MEDS: Calcium Carbonate 500 MG TAB PO SCH (09:19)
[2018-02-28] MEDS: Bisoprolol Fumarate/HCTZ 10 mg/6.25 mg Tablet PO SCH ×2 (09:19→20:41)
[2018-02-28] MEDS: Allopurinol 300 MG TAB PO SCH (09:19)
[2018-02-28] MEDS: Folic Acid 1 MG TAB PO SCH (09:19)
[2018-02-28] MEDS: Multivitamin W/ Minerals 1 TAB PO SCH (09:19)
[2018-02-28] MEDS: NIFEdipine XL 30 MG TAB PO SCH (09:19)
[2018-02-28] MEDS: Ferrous Sulfate 325 MG TAB PO SCH ×2 (09:20→18:14)
[2018-02-28] MEDS: Lactinex Tablet PO SCH ×2 (09:20→20:40)
[2018-02-28] MEDS: Ascorbic Acid 500 mg Chewable Tablet PO SCH ×2 (09:20→20:41)
[2018-02-28] MEDS: Enoxaparin Sodium 30 MG/0.3 ML SYRINGE SC SCH (09:21)
[2018-02-28] MEDS: Amiodarone 200 MG TAB PO SCH (09:22)
[2018-02-28 09:28] LABS: Anion Gap 14 mmol/L (10-20); BUN (Urea Nitrogen) 31 mg/dL (9.8-20.1); Calc. Creatinine Clearance 43 mL/min (70-130); Calcium 9.5 mg/dL (7.8-10.44); Carbon Dioxide 23 mmol/L (23-31); Chloride 99 mmol/L (98-107); Estimated GFR-MDRD 53; Glucose 138 mg/dL (83-110); Hemoglobin 10.2 g/dL (12.0-16.0); Magnesium 1.7 mg/dL (1.6-2.6); Mean Corpuscular HGB CONC 33.5 g/dL (32.0-36.0); Mean Corpuscular Hemoglobin 32.2 pg (27.0-31.0); Mean Corpuscular Volume 96.1 fL (78.0-98.0); Mean Platelet Volume 7.7 fL (7.4-10.4); Phosphorus 3.6 mg/dL (2.3-4.7); Platelet Count 504 thou/uL (130-400); Potassium 4.4 mmol/L (3.5-5.1); RBC Distribution Width 14.5 % (11.5-14.5); Red Blood Cell (RBC) Count 3.18 mill/uL (4.20-5.40); Sodium 132 mmol/L (136-145); White Blood Cell (WBC) Count 12.6 thou/uL (4.8-10.8)
[2018-02-28] MEDS: traMADol HCl 50 MG TAB PO PRN ×2 (09:28→20:41)
[2018-02-28 10:04] LABS: Band 4 % (5-11); Eosinophils 1 % (0-10); Hypochromia SLIGHT = 6-15 cells (100X) (0-5/hpf); Lymphocytes 7 % (21-51); MDiff Complete? YES; Monocytes 8 % (0-10); Neutrophil 80 % (42-75); PLT Morphology Comment Appears Increased; Polychromasia SLIGHT = 2-3 cells (100X) (0-2/hpf)
[2018-02-28] MEDS ORDERED: Magnesium Sulfate 2 GM in Sodium Chloride 0.9% 100 ML IVPB SCH (12:00)
--- NOTE | 2018-02-28 15:12 | PRG ---
DATE OF SERVICE: 02/28/2018 ATTENDING PHYSICIAN: Dr. Donell Cazares. SUBJECTIVE: Ms. Merino is a 77-year-old lady, who is hospital day #15, status post crush injury to b ilateral lower extremities. She has extensive soft tissue injury to her lower extremities, which res ulted in tissue loss. She has been transferred out of the ICU and has been stable on the surgical fl oor. Wound VAC is in place. Wound care nurse continues to follow. She has been seen by Plastic Amber kirt as well as Infectious Disease. She is currently on IV antibiotic therapy. She reports pain is well controlled. OBJECTIVE: VITAL SIGNS: Temperature 98.5, pulse 85, respirations 16, O2 sat 98% on room air, blood pressure 131 /72. CONSTITUTIONAL: Elderly female lying in bed, in no acute distress, nontoxic-appearing. HEENT: Atraumatic, normocephalic. CARDIOVASCULAR: Regular rate and rhythm. Heart sounds normal. PULMONARY: Bilateral breath sounds clear. Respirations even and unlabored. ABDOMEN: Soft, nontender, nondistended. NEUROLOGIC: GCS 15. Awake, alert, oriented x3. EXTREMITIES: Negative pressure wound therapy VAC in place to bilateral lower extremities. Cap refil l brisk in all extremities, neurovascularly intact. LABORATORY DATA: CBC: WBC 12.6, RBC 3.18, hemoglobin 10.2, hematocrit 30.6, platelets 504. Sales Engagement Manager ry: Sodium 132, potassium 4.4, chloride 99, carbon dioxide 23, BUN 31, creatinine 1.01, glucose 138, calcium 9.5, phosphorus 3.6, magnesium 1.7. ASSESSMENT: 1. Status post crush injury to bilateral lower extremities. 2. Wound care ostomy nurse following for wound VAC changes. 3. Acute traumatic pain, improving. 4. Plastic surgery and Infectious Disease continuing to follow. PLAN: 1. Continue mobilizing with physical and occupational therapy. 2. Antibiotics per Infectious Disease Service. 3. Plan for patient to go back to OR tomorrow for I and D and washout of wound with Plastic Surgery. 4. Case management following for discharge planning. Anticipate patient will need inpatient rehabil itation. 5. Lovenox for DVT prophylaxis. 6. Protonix for gastritis prophylaxis. 7. Replace abnormal electrolytes and continue to follow. Patient was reviewed with Dr. Cazares at the time of this dictation.
[2018-02-28] MEDS: Atorvastatin Calcium 40 MG TAB PO SCH (20:40)
[2018-02-28] MEDS: Fish Oil 1,000 MG CAP PO SCH (20:40)
[2018-02-28] MEDS: Gabapentin 300 MG CAP PO SCH (20:41)
[2018-03-01] MEDS: Ampicillin/Sulbactam 3 GM in Sodium Chloride 0.9% 100 ML IVPB SCH ×4 (01:26→21:18)
[2018-03-01 06:46] LABS: #Eosinphils 0.4 thou/uL (0.0-0.7); #Lymphocytes 0.9 thou/uL (1.20-3.40); #Monocytes 1.1 thou/uL (0.11-0.59); #Neutrophils 8.7 thou/uL (1.40-6.50); %Basophils 0.1 % (0.0-1.0); %Eosinophils 3.2 % (0.0-10.0); %Lymphocytes 8.2 % (21.0-51.0); %Monocytes 9.7 % (0.0-10.0); %Neutrophils 78.8 % (42.0-75.0); Hemoglobin 9.1 g/dL (12.0-16.0); Mean Corpuscular HGB CONC 33.1 g/dL (32.0-36.0); Mean Corpuscular Hemoglobin 31.6 pg (27.0-31.0); Mean Corpuscular Volume 95.4 fL (78.0-98.0); Mean Platelet Volume 7.5 fL (7.4-10.4); Platelet Count 496 thou/uL (130-400); RBC Distribution Width 14.1 % (11.5-14.5); Red Blood Cell (RBC) Count 2.89 mill/uL (4.20-5.40); White Blood Cell (WBC) Count 11.1 thou/uL (4.8-10.8)
[2018-03-01 06:55] LABS: Anion Gap 13 mmol/L (10-20); BUN (Urea Nitrogen) 29 mg/dL (9.8-20.1); Calc. Creatinine Clearance 45 mL/min (70-130); Calcium 9.3 mg/dL (7.8-10.44); Carbon Dioxide 24 mmol/L (23-31); Chloride 103 mmol/L (98-107); Estimated GFR-MDRD 56; Glucose 105 mg/dL (83-110); Magnesium 2.1 mg/dL (1.6-2.6); Phosphorus 3.9 mg/dL (2.3-4.7); Potassium 4.1 mmol/L (3.5-5.1); Sodium 136 mmol/L (136-145)
[2018-03-01] MEDS ORDERED: Fentanyl 100 MCG/2 ML VIAL ONE ×2 (07:19→09:06)
[2018-03-01] MEDS ORDERED: Lidocaine 2% Jelly 5 ML TUBE ONE (07:19)
[2018-03-01] MEDS ORDERED: Propofol 500 MG/50 ML VIAL ONE (07:45)
[2018-03-01] MEDS ORDERED: Promethazine HCl 25 MG/ML VIAL IM PRN (08:36)
[2018-03-01] MEDS ORDERED: Promethazine HCl 25 MG/ML VIAL SLOW IVP PRN (08:36)
[2018-03-01] MEDS ORDERED: Ondansetron HCl/PF 4 MG/2 ML Vial IVP PRN (08:36)
[2018-03-01] MEDS: Ferrous Sulfate 325 MG TAB PO SCH ×2 (10:54→17:50)
[2018-03-01] MEDS: traMADol HCl 50 MG TAB PO PRN ×2 (10:56→17:49)
[2018-03-01] MEDS: Calcium Carbonate 500 MG TAB PO SCH (10:57)
[2018-03-01] MEDS: Lactinex Tablet PO SCH ×2 (10:57→21:24)
[2018-03-01] MEDS: Allopurinol 300 MG TAB PO SCH (10:57)
[2018-03-01] MEDS: Amiodarone 200 MG TAB PO SCH (10:58)
[2018-03-01] MEDS: Senokot S 8.6-50 MG TAB PO SCH ×2 (10:58→21:25)
[2018-03-01] MEDS: Folic Acid 1 MG TAB PO SCH (10:58)
[2018-03-01] MEDS: Enoxaparin Sodium 30 MG/0.3 ML SYRINGE SC SCH (10:59)
[2018-03-01] MEDS: Ascorbic Acid 500 mg Chewable Tablet PO SCH ×2 (10:59→21:26)
[2018-03-01] MEDS: Polyethylene Glycol 3350 17 GM Packet PER TUBE SCH (11:01)
[2018-03-01] MEDS: Acetaminophen 500 MG TAB PO SCH ×2 (11:01→17:50)
[2018-03-01] MEDS: NIFEdipine XL 30 MG TAB PO SCH (11:15)
[2018-03-01] MEDS: Bisoprolol Fumarate/HCTZ 10 mg/6.25 mg Tablet PO SCH ×2 (11:15→21:24)
[2018-03-01] MEDS: Multivitamin W/ Minerals 1 TAB PO SCH (11:15)
--- NOTE | 2018-03-01 20:26 | PRG ---
DATE OF SERVICE: 03/01/2018 ATTENDING PHYSICIAN: Dr. Donell Cazares. SUBJECTIVE: Ms. Merino is a 77-year-old lady who is hospital day #16 status post crush injury to rosa isela ateral lower extremities. She has extensive soft tissue injuries to her lower extremities. This res ulted in significant tissue loss. She has been stable on the surgical floor. She was taken to the O R by Dr. Soriano of Plastic Surgery where she underwent debridement of wounds and replacement of negativ e pressure wound therapy VAC. She is now seen postoperatively on the surgical floor. She continues on IV antibiotic therapy, as directed per Infectious Disease. She reports pain is well controlled. OBJECTIVE: VITAL SIGNS: Temperature 98.3, pulse 83, respirations 20, O2 sat 96% on room air, blood pressure 135 /65. CONSTITUTIONAL: Elderly female lying in bed, in no acute distress, nontoxic appearing. HEENT: Atraumatic, normocephalic. CARDIOVASCULAR: Regular rate and rhythm. Heart sounds normal. PULMONARY: Bilateral breath sounds clear. Respirations even and unlabored. ABDOMEN: Soft, nontender, nondistended. NEUROLOGIC: GCS 15. Awake, alert, oriented x3. EXTREMITIES: Negative pressure wound VAC therapy in place to bilateral lower extremities. Cap refil l brisk in all extremities. NEUROVASCULAR: Intact. LABORATORY DATA: CBC: WBC 11.1, RBC 2.89, hemoglobin 9.1, hematocrit 27.5, platelets 141. Chemistr y: Sodium 136, potassium 4.1, chloride 103, BUN 29, creatinine 0.96, glucose 105, calcium 9.3, phosp horus 3.9, magnesium 2.1. ASSESSMENT: 1. Status post crush injury to bilateral lower extremities. 2. Wound care ostomy nurse following for VAC changes. 3. Status post debridement and VAC replacement, bilateral lower extremities, postoperative day #0. 4. Acute traumatic pain well controlled. 5. Plastic surgery and Infectious Disease, continue to follow. PLAN: 1. Continue mobilizing with physical and occupational therapy. 2. Continue antibiotics per Infectious Disease recommendations. 3. Continue current pain regimen. 4. Lovenox for DVT prophylaxis. 5. Protonix for gastritis prophylaxis. 6. Case management following for discharge planning. Anticipate patient will need inpatient rehabil itation. The patient was reviewed with Dr. Cazares who agrees with plan.
[2018-03-01] MEDS: Atorvastatin Calcium 40 MG TAB PO SCH (21:25)
[2018-03-01] MEDS: Fish Oil 1,000 MG CAP PO SCH (21:25)
[2018-03-01] MEDS: Gabapentin 300 MG CAP PO SCH (21:26)
[2018-03-02] MEDS: Acetaminophen 500 MG TAB PO SCH ×3 (00:52→12:00)
[2018-03-02] MEDS: Ampicillin/Sulbactam 3 GM in Sodium Chloride 0.9% 100 ML IVPB SCH ×3 (02:25→14:31)
[2018-03-02 04:13] LABS: #Eosinphils 0.3 thou/uL (0.0-0.7); #Lymphocytes 1.1 thou/uL (1.20-3.40); #Monocytes 1.1 thou/uL (0.11-0.59); #Neutrophils 7.4 thou/uL (1.40-6.50); %Basophils 0.2 % (0.0-1.0); %Eosinophils 3.1 % (0.0-10.0); %Lymphocytes 10.9 % (21.0-51.0); %Monocytes 10.8 % (0.0-10.0); %Neutrophils 75.1 % (42.0-75.0); Hemoglobin 8.6 g/dL (12.0-16.0); Mean Corpuscular HGB CONC 33.7 g/dL (32.0-36.0); Mean Corpuscular Hemoglobin 32.4 pg (27.0-31.0); Mean Platelet Volume 7.2 fL (7.4-10.4); Platelet Count 477 thou/uL (130-400); RBC Distribution Width 14.1 % (11.5-14.5); Red Blood Cell (RBC) Count 2.66 mill/uL (4.20-5.40); White Blood Cell (WBC) Count 9.8 thou/uL (4.8-10.8)
[2018-03-02 04:34] LABS: Anion Gap 11 mmol/L (10-20); BUN (Urea Nitrogen) 30 mg/dL (9.8-20.1); Calc. Creatinine Clearance 40 mL/min (70-130); Calcium 9.2 mg/dL (7.8-10.44); Carbon Dioxide 24 mmol/L (23-31); Chloride 102 mmol/L (98-107); Estimated GFR-MDRD 48; Glucose 98 mg/dL (83-110); Magnesium 1.7 mg/dL (1.6-2.6); Phosphorus 4.1 mg/dL (2.3-4.7); Potassium 3.8 mmol/L (3.5-5.1); Sodium 133 mmol/L (136-145)
[2018-03-02] MEDS: NIFEdipine XL 30 MG TAB PO SCH (09:15)
[2018-03-02] MEDS: Allopurinol 300 MG TAB PO SCH (09:16)
[2018-03-02] MEDS: Ferrous Sulfate 325 MG TAB PO SCH (09:16)
[2018-03-02] MEDS: Amiodarone 200 MG TAB PO SCH (09:17)
[2018-03-02] MEDS: Lactinex Tablet PO SCH (09:17)
[2018-03-02] MEDS: Calcium Carbonate 500 MG TAB PO SCH (09:17)
[2018-03-02] MEDS: Folic Acid 1 MG TAB PO SCH (09:17)
[2018-03-02] MEDS: Ascorbic Acid 500 mg Chewable Tablet PO SCH (09:17)
[2018-03-02] MEDS: Multivitamin W/ Minerals 1 TAB PO SCH (09:17)
[2018-03-02] MEDS: Senokot S 8.6-50 MG TAB PO SCH (09:18)
[2018-03-02] MEDS: Bisoprolol Fumarate/HCTZ 10 mg/6.25 mg Tablet PO SCH (09:18)
[2018-03-02] MEDS: Polyethylene Glycol 3350 17 GM Packet PER TUBE SCH (09:18)
[2018-03-02] MEDS: Enoxaparin Sodium 30 MG/0.3 ML SYRINGE SC SCH (10:18)
--- NOTE | 2018-03-02 11:21 | OP ---
DATE OF PROCEDURE: 03/01/2018 PREOPERATIVE DIAGNOSIS: Open wound, bilateral thighs. POSTOPERATIVE DIAGNOSIS: Open wound, bilateral thighs. PROCEDURE: Debridement of bilateral thighs for skin and subcutaneous tissue. PROCEDURE IN DETAIL: Following induction of adequate anesthesia, the patient was prepped and draped in the usual sterile fashion in supine position. Her existing wound VACs have been removed prior to prepping and draping. A relatively small amount of nonviable skin was noted at the posterior aspect as well as small areas of subcutaneous fat that did not look viable intermittently and sparsely over each wound. These were all sharply debrided back to punctate bleeding. Hemostasis was easily achiev ed. The wounds were redressed with a wound VAC. The patient tolerated the procedure well.
--- NOTE | 2018-03-02 11:31 | OP ---
DATE OF SURGERY: 02/22/2018 PREOPERATIVE DIAGNOSIS: Open wounds, bilateral thighs. POSTOPERATIVE DIAGNOSIS: Open wounds, bilateral thighs. PROCEDURE: Debridement of bilateral thighs. OPERATIVE PROCEDURE: Following induction of adequate anesthesia, the patient was prepped and draped in the usual sterile fashion in the supine position. The patient had been involved in a crush injury several days before. Plastic Surgery was consulted, as the skin was not looking healthy. There wer e some nonviable areas medially on each side. The right thigh skin was excised around the clearly ne crotic area. Underlying tissue had an odor and appeared to be nonviable. This was sent for tissue c ulsharee. The debridement then extended through skin and subcutaneous tissue approximately to 40% perc ent of the patient's surface area verified. This was done expanding concentric circles until viable edges were achieved everywhere. The resultant defect was a significant portion of the medial and pos terior thigh as well as around the popliteal fossa region. Thrombosed saphenous vein was removed. T he field was copiously irrigated and inspected for meticulous hemostasis prior to placement of a dres sing. New instruments were used. A similar procedure but of a much smaller scope on the left inner thigh. This involved only part of approximately 3% total body surface area on the inner thigh of the left. Again, dressings were placed. The patient tolerated the procedure well.
[2018-03-02] MEDS: traMADol HCl 50 MG TAB PO PRN (12:03)
[2018-03-02 17:58] VITALS: BP 140/69; TEMP 98.5
[2018-03-05] MEDS ORDERED: Alendronate Sodium 70 mg Tablet PO SCH (09:00)
== END 2018-03-02 16:11 | DRG 957 ==
LOC: ERS 15:13 → SDC 16:56 → CCU 19:04 → 2NO 02-20 17:23 → SURG B 02-21 09:17
PROVIDERS: ADMIT Surgery; ATTEND Surgery
PROC: 5A1955Z Respiratory Ventilation, Greater than 96 Consecutive Hours (ICD-10-PCS; 2018-02-13)
PROC: 0JQL0ZZ Repair Right Upper Leg Subcutaneous Tissue and Fascia, Open Approach (ICD-10-PCS; 2018-02-14)
PROC: 0JBL0ZZ Excision of Right Upper Leg Subcutaneous Tissue and Fascia, Open Approach (ICD-10-PCS; 2018-02-14)
PROC: 0JQM0ZZ Repair Left Upper Leg Subcutaneous Tissue and Fascia, Open Approach (ICD-10-PCS; 2018-02-14)
PROC: 0BJ08ZZ Inspection of Tracheobronchial Tree, Via Natural or Artificial Opening Endoscopic (ICD-10-PCS; 2018-02-14)
PROC: 05H633Z Insertion of Infusion Device into Left Subclavian Vein, Percutaneous Approach (ICD-10-PCS; 2018-02-14)
PROC: 0HQEXZZ Repair Left Lower Arm Skin, External Approach (ICD-10-PCS; 2018-02-14)
PROC: 3E043XZ Introduction of Vasopressor into Central Vein, Percutaneous Approach (ICD-10-PCS; 2018-02-14)
PROC: 30233N1 Transfusion of Nonautologous Red Blood Cells into Peripheral Vein, Percutaneous Approach (ICD-10-PCS; 2018-02-14)
PROC: 0B9J8ZX Drainage of Left Lower Lung Lobe, Via Natural or Artificial Opening Endoscopic, Diagnostic (ICD-10-PCS; 2018-02-17)
PROC: 0B9C8ZX Drainage of Right Upper Lung Lobe, Via Natural or Artificial Opening Endoscopic, Diagnostic (ICD-10-PCS; 2018-02-17)
PROC: 0B9G8ZX Drainage of Left Upper Lung Lobe, Via Natural or Artificial Opening Endoscopic, Diagnostic (ICD-10-PCS; 2018-02-17)
PROC: 0B9F8ZX Drainage of Right Lower Lung Lobe, Via Natural or Artificial Opening Endoscopic, Diagnostic (ICD-10-PCS; 2018-02-17)
PROC: 3E0G76Z Introduction of Nutritional Substance into Upper GI, Via Natural or Artificial Opening (ICD-10-PCS; 2018-02-18)
PROC: 0JBM0ZZ Excision of Left Upper Leg Subcutaneous Tissue and Fascia, Open Approach (ICD-10-PCS; principal; 2018-02-22)
PROC: 0JBL0ZZ Excision of Right Upper Leg Subcutaneous Tissue and Fascia, Open Approach (ICD-10-PCS; 2018-02-22)
PROC: 0JBM0ZZ Excision of Left Upper Leg Subcutaneous Tissue and Fascia, Open Approach (ICD-10-PCS; 2018-03-01)
PROC: 0JBL0ZZ Excision of Right Upper Leg Subcutaneous Tissue and Fascia, Open Approach (ICD-10-PCS; 2018-03-01)
DX: S77.12XA Crushing injury of left thigh, initial encounter (principal); J96.01 Acute respiratory failure with hypoxia; S28.0XXA Crushed chest, initial encounter; G93.41 Metabolic encephalopathy; S22.41XA Multiple fractures of ribs, right side, initial encounter for closed fracture; E27.40 Unspecified adrenocortical insufficiency; J81.1 Chronic pulmonary edema; S27.322A Contusion of lung, bilateral, initial encounter; D62 Acute posthemorrhagic anemia; N39.0 Urinary tract infection, site not specified; N17.9 Acute kidney failure, unspecified; S77.11XA Crushing injury of right thigh, initial encounter; V04.00XA Pedestrian on foot injured in collision with heavy transport vehicle or bus in nontraffic accident, initial encounter; I11.0 Hypertensive heart disease with heart failure; Y92.9 Unspecified place or not applicable; E78.5 Hyperlipidemia, unspecified; S51.012A Laceration without foreign body of left elbow, initial encounter; S71.112A Laceration without foreign body, left thigh, initial encounter; S81.011A Laceration without foreign body, right knee, initial encounter; S71.111A Laceration without foreign body, right thigh, initial encounter; E87.6 Hypokalemia; E83.39 Other disorders of phosphorus metabolism; E83.42 Hypomagnesemia; B96.1 Klebsiella pneumoniae [K. pneumoniae] as the cause of diseases classified elsewhere; I50.9 Heart failure, unspecified; I48.91 Unspecified atrial fibrillation; Z88.2 Allergy status to sulfonamides; Z85.3 Personal history of malignant neoplasm of breast; Z85.828 Personal history of other malignant neoplasm of skin
CPT/HCPCS: 31500; 36415; 36416; 36430; 51702; 70450; 71045; 71260; 72125; 72170; 74177; 80048; 80053; 80307; 81001; 82150; 82533; 82550; 82805; 83690; 83735; 84100; 84134; 85007; 85025; 85027; 85610; 85730; 86850; 86900; 86901; 87070; 87077; 87086; 87186; 87205; 87324; 87449; 90471; 93005; 93010; 94002; 94003; 94640; 96374; 96375; 99292; A4216; C9113; G0390; G8978-GP-CL; G8978-GP-CN; G8979-GP-CJ; G8979-GP-CM; G8987-GO-CL; G8988-GO-CJ; G8996-GN-CJ; G8997-GN-CI; J0131; J0282; J0295; J0360; J0690; J0696; J1100; J1580; J1650; J1720; J1940; J2001; J2185; J2250; J2270; J2405; J2704; J2765; J3010; J3411; J3475; J3480; J7042; J7050; J7070; J7620; P9016; P9045; P9047; Q0162

== ENCOUNTER 2018-04-10 09:49 | Inpatient (IN) | payer MEDICARE, BC, OTHER ==
[2018-04-10] MEDS ORDERED: Heparin 5,000 UNITS/ML VIAL ONE (11:59)
[2018-04-10] MEDS ORDERED: PROPOFOL 200 MG/20 ML VIAL ONE (14:35)
[2018-04-10] MEDS ORDERED: PHENYLEPHRINE-NS 100 MCG/ML 10 ML SYRINGE ONE (14:35)
[2018-04-10] MEDS ORDERED: Lidocaine 1% PF 5 ML VIAL ONE (14:35)
[2018-04-10] MEDS ORDERED: ePHEDrine/0.9% NaCl/PF SYRINGE 50 mg/10 ml ONE (14:35)
--- NOTE | 2018-04-10 16:18 | EKG ---
Test Reason : PREOP Blood Pressure : / mmHG Vent. Rate : 070 BPM Atrial Rate : 070 BPM P-R Int : 188 ms QRS Dur : 084 ms QT Int : 446 ms P-R-T Axes : 051 -02 026 degrees QTc Int : 481 ms Normal sinus rhythm Normal ECG When compared with ECG of 16-FEB-2018 15:53, Sinus rhythm has replaced Atrial fibrillation Vent. rate has decreased BY 88 BPM Non-specific change in ST segment in Inferior leads ST no longer depressed in Lateral leads Nonspecific T wave abnormality, improved in Inferior leads T wave inversion no longer evident in Anterolateral leads Confirmed by DR. Jamaal REILLY ([id number]) on 04/10/2018 4:17:58 PM Referred By: YAMILKA Confirmed By:DR. Jamaal REILLY
[2018-04-10] MEDS ORDERED: EPINEPHrine 1 MG/ML AMP ONE ×2 (16:29→16:33)
[2018-04-10] MEDS ORDERED: Fentanyl 100 MCG/2 ML VIAL ONE ×4 (16:31→21:22)
[2018-04-10] MEDS ORDERED: Bupivacaine 0.25% HCL 30 ML VIAL ONE (16:33)
[2018-04-10] MEDS ORDERED: CEFAZOLIN/Water 2 GM/20 ML SYRINGE ONE (16:36)
[2018-04-10] MEDS ORDERED: Promethazine HCl 25 MG/ML VIAL IM PRN (18:45)
[2018-04-10] MEDS ORDERED: Ondansetron HCl/PF 4 MG/2 ML Vial IVP PRN (18:45)
[2018-04-10] MEDS ORDERED: Promethazine HCl 25 MG/ML VIAL SLOW IVP PRN (18:45)
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
[2018-04-10] MEDS ORDERED: Ondansetron HCl/PF 4 MG/2 ML Vial ONE (20:37)
[2018-04-10] MEDS ORDERED: Promethazine HCl 25 MG/ML VIAL ONE (20:55)
[2018-04-10] MEDS ORDERED: Ondansetron ODT 4 MG TAB PO PRN (22:27)
[2018-04-10] MEDS ORDERED: Bisacodyl 5 MG TAB PO PRN (22:27)
[2018-04-10] MEDS ORDERED: Milk Of Magnesia 30 ML UDCUP PO PRN (22:27)
[2018-04-10] MEDS ORDERED: Fleet Enema 133 ML BOT PR PRN (22:27)
[2018-04-10] MEDS ORDERED: Acetaminophen 325 MG TAB PO PRN (22:27)
[2018-04-10] MEDS ORDERED: Acetaminophen 650 MG Suppository PR PRN (22:27)
[2018-04-10] MEDS ORDERED: traMADol HCl 50 MG TAB PO PRN (22:31)
--- NOTE | 2018-04-10 23:21 | OP ---
DATE OF PROCEDURE: 04/10/2018 PREOPERATIVE DIAGNOSIS: Open wound, bilateral thighs. POSTOPERATIVE DIAGNOSIS: Open wound, bilateral thighs. PROCEDURES: 1. Debridement of bilateral wounds in preparation for skin grafting (210 cm2) ([id number], 32876 x2). 2. Split-thickness skin graft, bilateral thighs (210 cm2) (57790,69560 x2). 3. Complex closure, right posterior thigh (10 cm) ([id number],58887). PROCEDURE IN DETAIL: Following induction of adequate anesthesia, the patient was prepped and draped in the usual sterile fashion in the supine position. Her bilateral thigh wounds were sharply debride d back to punctate bleeding. They were then copiously irrigated and inspected for meticulous hemosta sis. The split-thickness skin grafts were then harvested from her bilateral anterior and lateral thi gh and meshed to 1-1/2 to one. They were secured to the wounds with suzi. On the posterior portion of the wound, there was one small very narrow area of tunneling. I elected to close this over a Zev drain after sharply, debriding and excising the majority of the tunnel o f the wound, thus hopefully collapsing it. Closure was achieved with 2-0 Prolene suture. A wound VAC was applied with a Y connector to each thigh wound (210 cm2) ([id number]).
[2018-04-10] MEDS: Ondansetron HCl/PF 4 MG/2 ML Vial IVP PRN (23:29)
[2018-04-10] MEDS ORDERED: Acetaminophen 500 MG TAB PO SCH (23:59)
[2018-04-11] MEDS: Ampicillin/Sulbactam 3 GM in Sodium Chloride 0.9% 100 ML IVPB SCH ×4 (02:02→21:09)
[2018-04-11 05:43] LABS: ALT (SGPT) 11 U/L (8-55); AST (SGOT) 21 U/L (5-34); Albumin 2.8 g/dL (3.4-4.8); Alkaline Phosphatase 73 U/L (40-150); Anion Gap 16 mmol/L (10-20); BUN (Urea Nitrogen) 12 mg/dL (9.8-20.1); Bilirubin, Total 0.3 mg/dL (0.2-1.2); Calc. Creatinine Clearance 33 mL/min (70-130); Calcium 8.3 mg/dL (7.8-10.44); Carbon Dioxide 21 mmol/L (23-31); Chloride 101 mmol/L (98-107); Estimated GFR-MDRD 47; Globulin 2.8 g/dL (2.4-3.5); Glucose 100 mg/dL (83-110); Potassium 4.1 mmol/L (3.5-5.1); Protein, Total 5.6 g/dL (6.0-8.3); Sodium 134 mmol/L (136-145)
[2018-04-11 05:52] LABS: Band 14 % (5-11); Eosinophils 1 % (0-10); Lymphocytes 13 % (21-51); MDiff Complete? YES; Mean Corpuscular Hemoglobin 31.1 pg (27.0-31.0); Mean Corpuscular Volume 94.3 fL (78.0-98.0); Mean Platelet Volume 7.4 fL (7.4-10.4); Monocytes 1 % (0-10); Neutrophil 71 % (42-75); PLT Morphology Comment Appears Increased; Platelet Count 441 thou/uL (130-400); RBC Distribution Width 13.3 % (11.5-14.5); RBC Morphology Normal; Red Blood Cell (RBC) Count 3.52 mill/uL (4.20-5.40); White Blood Cell (WBC) Count 18.9 thou/uL (4.8-10.8)
[2018-04-11] MEDS: Ferrous Sulfate 325 MG TAB PO SCH ×2 (08:39→16:51)
[2018-04-11] MEDS ORDERED: Famotidine/PF 20 mg/2ml Vial SLOW IVP SCH (09:00)
[2018-04-11] MEDS: Polyethylene Glycol 3350 17 GM Packet PO SCH (09:30)
[2018-04-11] MEDS: Allopurinol 300 MG TAB PO SCH (09:31)
[2018-04-11] MEDS: Calcium Carbonate 500 MG TAB PO SCH (09:31)
[2018-04-11] MEDS: Amiodarone 200 MG TAB PO SCH (09:31)
[2018-04-11] MEDS: Ascorbic Acid 500 mg Chewable Tablet PO SCH ×2 (09:31→21:11)
[2018-04-11] MEDS: Folic Acid 1 MG TAB PO SCH (09:32)
[2018-04-11] MEDS: Lactinex Tablet PO SCH ×2 (09:32→21:11)
[2018-04-11] MEDS: Senokot S 8.6-50 MG TAB PO SCH ×2 (09:32→21:23)
[2018-04-11] MEDS: Multivitamin W/ Minerals 1 TAB PO SCH (09:32)
[2018-04-11] MEDS: Enoxaparin Sodium 30 MG/0.3 ML SYRINGE SC SCH (09:33)
[2018-04-11] MEDS: Bisoprolol Fumarate/HCTZ 10 mg/6.25 mg Tablet PO SCH ×2 (09:33→21:10)
[2018-04-11] MEDS: NIFEdipine XL 30 MG TAB PO SCH (09:34)
[2018-04-11 12:50] VITALS: BMI 23.2
--- NOTE | 2018-04-11 14:00 | PDOC.PN ---
- Subjective Encounter Start Date: 04/11/18 Encounter Start Time: 09:00 Doing ok. Still has some pain. Not eating much, but eating. - Objective Vital Signs & Weight: Vital Signs (12 hours) Temp Pulse Resp BP BP Pulse Ox 04/11/18 12:44 80 18 94 L 04/11/18 11:41 98.1 F 76 18 118/56 L 95 04/11/18 09:34 84 132/65 04/11/18 08:00 98.2 F 84 18 132/65 93 L 04/11/18 07:50 98.5 F 83 18 98 04/11/18 07:47 79 18 96 04/11/18 04:34 98.3 F 83 18 126/62 94 L Weight Admit Weight 115 lb Weight 115 lb I&O: 04/10/18 04/11/18 04/12/18 06:59 06:59 06:59 Intake Total 750 Output Total 910 Balance -160 Result Diagrams: 04/11/18 04:39 04/11/18 04:39 Phys Exam - Physical Examination Constitutional: NAD Respiratory: no wheezing, no rales, no rhonchi, clear to auscultation bilateral Cardiovascular: RRR, no significant murmur, no rub Gastrointestinal: soft, non-tender, no distention, positive bowel sounds Musculoskeletal: pulses present Good distal pulses and cap refill. Warm and dry. Dx/Plan (1) Avulsion of skin Code(s): T14.8XXA - OTHER INJURY OF UNSPECIFIED BODY REGION, INITIAL ENCOUNTER Status: Acute (2) Hypertension Code(s): I10 - ESSENTIAL (PRIMARY) HYPERTENSION Status: Acute (3) Pain Code(s): R52 - PAIN, UNSPECIFIED Status: Chronic (4) Hyperlipidemia Code(s): E78.5 - HYPERLIPIDEMIA, UNSPECIFIED Status: Acute (5) History of atrial fibrillation Code(s): Z86.79 - PERSONAL HISTORY OF OTHER DISEASES OF THE CIRCULATORY SYSTEM Status: Acute Comment: Continue oral amiodarone - Plan * Post-op split thickness skin graft to bilateral LE's. Continue pain management. * Continue with usual home meds for HTN and hyperlipidemia. * Consider nutritional supplements if the appetite does not grape picker a bit. * Continue DVT prophylaxis.
[2018-04-11] MEDS ORDERED: HYDROcodone/Acetaminophen 5/325 mg Tablet PO PRN (18:11)
[2018-04-11] MEDS: Zolpidem Tartrate 5 MG TAB PO PRN (21:10)
[2018-04-11] MEDS: Gabapentin 300 MG CAP PO SCH (21:11)
[2018-04-11] MEDS: Ubidecarenone 50 MG CAP PO SCH (21:11)
[2018-04-11] MEDS: Fish Oil 1,000 MG CAP PO SCH (21:11)
[2018-04-11] MEDS: Atorvastatin Calcium 40 MG TAB PO SCH (21:11)
[2018-04-12] MEDS: Ampicillin/Sulbactam 3 GM in Sodium Chloride 0.9% 100 ML IVPB SCH ×4 (02:32→20:44)
[2018-04-12 04:28] LABS: Anion Gap 13 mmol/L (10-20); BUN (Urea Nitrogen) 17 mg/dL (9.8-20.1); Calc. Creatinine Clearance 32 mL/min (70-130); Carbon Dioxide 26 mmol/L (23-31); Chloride 100 mmol/L (98-107); Estimated GFR-MDRD 46; Glucose 97 mg/dL (83-110); Potassium 3.7 mmol/L (3.5-5.1); Sodium 135 mmol/L (136-145)
[2018-04-12 04:41] LABS: #Eosinphils 0.3 thou/uL (0.0-0.7); #Monocytes 0.8 thou/uL (0.11-0.59); #Neutrophils 5.3 thou/uL (1.40-6.50); %Basophils 0.4 % (0.0-1.0); %Eosinophils 3.6 % (0.0-10.0); %Lymphocytes 23.6 % (21.0-51.0); %Monocytes 8.9 % (0.0-10.0); %Neutrophils 63.5 % (42.0-75.0); Mean Corpuscular HGB CONC 33.3 g/dL (32.0-36.0); Mean Corpuscular Hemoglobin 31.4 pg (27.0-31.0); Mean Corpuscular Volume 94.4 fL (78.0-98.0); Mean Platelet Volume 7.2 fL (7.4-10.4); Platelet Count 355 thou/uL (130-400); RBC Distribution Width 13.4 % (11.5-14.5); Red Blood Cell (RBC) Count 2.87 mill/uL (4.20-5.40); White Blood Cell (WBC) Count 8.4 thou/uL (4.8-10.8)
[2018-04-12] MEDS: Ferrous Sulfate 325 MG TAB PO SCH ×2 (08:15→17:02)
[2018-04-12] MEDS: Polyethylene Glycol 3350 17 GM Packet PO SCH (08:16)
[2018-04-12] MEDS: Calcium Carbonate 500 MG TAB PO SCH (08:17)
[2018-04-12] MEDS: Ascorbic Acid 500 mg Chewable Tablet PO SCH ×2 (08:17→20:38)
[2018-04-12] MEDS: Multivitamin W/ Minerals 1 TAB PO SCH (08:17)
[2018-04-12] MEDS: Lactinex Tablet PO SCH ×2 (08:17→20:36)
[2018-04-12] MEDS: Allopurinol 300 MG TAB PO SCH (08:17)
[2018-04-12] MEDS: Bisoprolol Fumarate/HCTZ 10 mg/6.25 mg Tablet PO SCH ×2 (08:17→20:38)
[2018-04-12] MEDS: Folic Acid 1 MG TAB PO SCH (08:18)
[2018-04-12] MEDS: Senokot S 8.6-50 MG TAB PO SCH ×2 (08:18→20:46)
[2018-04-12] MEDS: Amiodarone 200 MG TAB PO SCH (08:18)
[2018-04-12] MEDS: NIFEdipine XL 30 MG TAB PO SCH (08:19)
[2018-04-12] MEDS: Enoxaparin Sodium 30 MG/0.3 ML SYRINGE SC SCH (08:25)
[2018-04-12] MEDS: HYDROcodone/Acetaminophen 5/325 mg Tablet PO PRN ×3 (08:25→22:20)
[2018-04-12] MEDS ORDERED: Famotidine 20 MG TAB PO SCH (09:00)
--- NOTE | 2018-04-12 09:41 | PDOC.PN ---
- Subjective Encounter Start Date: 04/12/18 Encounter Start Time: 09:40 Doing much better today. Very talkative. She got and walked a little yesterday. Appetite is better. Pain is managed. - Objective MAR Reviewed: Yes Vital Signs & Weight: Vital Signs (12 hours) Temp Pulse Resp BP BP Pulse Ox 04/12/18 08:57 70 18 100 04/12/18 08:19 70 132/66 04/12/18 08:00 98.3 F 70 15 132/66 100 04/12/18 04:47 97.6 F 70 19 114/62 100 04/12/18 00:00 98.3 F 74 17 109/56 L 95 04/11/18 23:55 71 18 92 L Weight Admit Weight 115 lb Weight 115 lb I&O: 04/11/18 04/12/18 04/13/18 06:59 06:59 06:59 Intake Total 2480 Output Total 1960 Balance 520 Result Diagrams: 04/12/18 03:30 04/12/18 03:30 Phys Exam - Physical Examination Constitutional: NAD Respiratory: no wheezing, no rales, no rhonchi Cardiovascular: RRR, no significant murmur, no rub Gastrointestinal: soft, non-tender, no distention, positive bowel sounds Musculoskeletal: no edema [place] sites look good. Little output from the vac. Good pulses. Psychiatric: normal affect Dx/Plan (1) Avulsion of skin Code(s): T14.8XXA - OTHER INJURY OF UNSPECIFIED BODY REGION, INITIAL ENCOUNTER Status: Acute Comment: Post op split thickness skin grafts. Doing well. Continue Unasyn, pain management. Wound vac. (2) Hypertension Code(s): I10 - ESSENTIAL (PRIMARY) HYPERTENSION Status: Acute Comment: Well controlled. No change. Resumed home meds. (3) Pain Code(s): R52 - PAIN, UNSPECIFIED Status: Chronic Comment: Managed with IV Morphine and oral meds. (4) Hyperlipidemia Code(s): E78.5 - HYPERLIPIDEMIA, UNSPECIFIED Status: Acute Comment: Continue home statin. (5) History of atrial fibrillation Code(s): Z86.79 - PERSONAL HISTORY OF OTHER DISEASES OF THE CIRCULATORY SYSTEM Status: Acute Comment: Now NSR. Continue oral amiodarone - Plan * Appreciate instrumentation manager consult and recommendations. * Continue to modestly mobilize.
[2018-04-12] MEDS: Fish Oil 1,000 MG CAP PO SCH ×2 (20:37→20:44)
[2018-04-12] MEDS: Zolpidem Tartrate 5 MG TAB PO PRN (20:37)
[2018-04-12] MEDS: Ubidecarenone 50 MG CAP PO SCH (20:37)
[2018-04-12] MEDS: Atorvastatin Calcium 40 MG TAB PO SCH (20:37)
[2018-04-12] MEDS: Gabapentin 300 MG CAP PO SCH (20:37)
[2018-04-12] MEDS ORDERED: Atorvastatin Calcium 40 MG TAB PO SCH (21:00)
[2018-04-13] MEDS: Ampicillin/Sulbactam 3 GM in Sodium Chloride 0.9% 100 ML IVPB SCH ×4 (02:13→21:21)
[2018-04-13] MEDS: HYDROcodone/Acetaminophen 5/325 mg Tablet PO PRN ×3 (07:20→21:23)
[2018-04-13] MEDS ORDERED: Potassium Chloride 20 MEQ TAB PO SCH (08:00)
[2018-04-13] MEDS ORDERED: Allopurinol 300 MG TAB PO SCH (09:00)
[2018-04-13] MEDS: Calcium Carbonate 500 MG TAB PO SCH (09:42)
[2018-04-13] MEDS: Allopurinol 300 MG TAB PO SCH (09:42)
[2018-04-13] MEDS: Bisoprolol Fumarate/HCTZ 10 mg/6.25 mg Tablet PO SCH ×2 (09:42→21:22)
[2018-04-13] MEDS: Folic Acid 1 MG TAB PO SCH (09:42)
[2018-04-13] MEDS: Ferrous Sulfate 325 MG TAB PO SCH ×2 (09:43→18:12)
[2018-04-13] MEDS: Lactinex Tablet PO SCH ×2 (09:43→21:22)
[2018-04-13] MEDS: Ascorbic Acid 500 mg Chewable Tablet PO SCH ×2 (09:43→21:23)
[2018-04-13] MEDS: Amiodarone 200 MG TAB PO SCH (09:43)
[2018-04-13] MEDS: Multivitamin W/ Minerals 1 TAB PO SCH (09:43)
[2018-04-13] MEDS: NIFEdipine XL 30 MG TAB PO SCH (09:43)
[2018-04-13] MEDS: Enoxaparin Sodium 30 MG/0.3 ML SYRINGE SC SCH (09:44)
[2018-04-13] MEDS: Polyethylene Glycol 3350 17 GM Packet PO SCH (12:24)
[2018-04-13] MEDS: Senokot S 8.6-50 MG TAB PO SCH ×2 (12:24→21:22)
--- NOTE | 2018-04-13 16:56 | PDOC.PN ---
- Subjective Encounter Start Date: 04/13/18 Encounter Start Time: 12:30 Subjective: pt up in bed no complains - Objective Vital Signs & Weight: Vital Signs (12 hours) Temp Pulse Resp BP Pulse Ox 04/13/18 15:36 97.6 F 70 16 137/67 92 L 04/13/18 12:26 66 14 96 04/13/18 11:18 97.6 F 66 16 132/64 96 04/13/18 08:00 97.6 F 66 14 04/13/18 07:43 97.5 F L 75 16 131/65 98 04/13/18 07:04 73 16 96 Weight Admit Weight 115 lb Weight 115 lb I&O: 04/12/18 04/13/18 04/14/18 06:59 06:59 06:59 Intake Total 2480 2069 Output Total 1960 Balance 520 2069 Result Diagrams: 04/12/18 03:30 04/12/18 03:30 Phys Exam - Physical Examination Neck: no nodes, no JVD, supple, full ROM Respiratory: no wheezing, no rales, no rhonchi, wheezing present, clear to auscultation bilateral Cardiovascular: RRR, no significant murmur, no rub, gallop, irregular Dx/Plan (1) Hypertension Code(s): I10 - ESSENTIAL (PRIMARY) HYPERTENSION Status: Acute Comment: Well controlled. No change. Resumed home meds. (2) Avulsion of skin Code(s): T14.8XXA - OTHER INJURY OF UNSPECIFIED BODY REGION, INITIAL ENCOUNTER Status: Acute Comment: Post op split thickness skin grafts. Doing well. Continue Unasyn, pain management. Wound vac. (3) Hyperlipidemia Code(s): E78.5 - HYPERLIPIDEMIA, UNSPECIFIED Status: Acute Comment: Continue home statin. (4) History of atrial fibrillation Code(s): Z86.79 - PERSONAL HISTORY OF OTHER DISEASES OF THE CIRCULATORY SYSTEM Status: Acute Comment: Now NSR. Continue oral amiodarone - Plan pt's blood pressure is stable -: further recommendation per surgery -: hh low stable -: continue amio for now * . Review of Systems - Review of Systems ENT: negative: Ear Pain, Ear Discharge, Nose Pain, Nose Discharge, Nose Congestion, Mouth Pain, Mouth Swelling, Throat Pain, Throat Swelling, Other Respiratory: negative: Cough, Dry, Shortness of Breath, Hemoptysis, SOB with Excertion, Pleuritic Pain, Sputum, Wheezing Cardiovascular: negative: chest pain, palpitations, orthopnea, paroxysmal nocturnal dyspnea, edema, light headedness, other Gastrointestinal: negative: Nausea, Vomiting, Abdominal Pain, Diarrhea, Constipation, Melena, Hematochezia, Other - Medications/Allergies Allergies/Adverse Reactions: Allergies Allergy/AdvReac Type Severity Reaction Status Date / Time pneumococcal vaccine Allergy Severe Verified 04/09/18 13:37 [Pneumococcal Vaccine] aspirin Allergy Verified 04/09/18 13:37 ciprofloxacin [From Cipro] Allergy Verified 04/09/18 13:37 codeine Allergy Verified 04/09/18 13:37 nitrofurantoin Allergy Verified 04/09/18 13:37 macrocrystalline [From Macrodantin] Penicillins Allergy Verified 04/09/18 13:37 Sulfa (Sulfonamide Allergy Verified 04/09/18 13:37 Antibiotics) Medications: Current Medications Acetaminophen (Tylenol) 650 mg PO Q4H PRN PRN Reason: Headache/Fever or Pain Acetaminophen (Tylenol) 650 mg IA Q4H PRN PRN Reason: Headache/Fever or Pain Hydrocodone Bitart/Acetaminophen ([place] 5/325) 1 tab PO Q6H PRN PRN Reason: Mild-Moderate Pain (1-5) Last Admin: 04/11/18 21:11 Dose: 1 tab Hydrocodone Bitart/Acetaminophen ([place] 5/325) 2 tab PO Q6H PRN PRN Reason: Moderate to Severe Pain (6-10) Last Admin: 04/13/18 15:40 Dose: 2 tab Acidophilus (Floranex) 2 tab PO BID [facility] Last Admin: 04/13/18 09:43 Dose: 2 tab Albuterol/Ipratropium (Duoneb) 3 ml NEB [id number] ENRIQUETA Last Admin: 04/13/18 12:26 Dose: 3 ml Albuterol/Ipratropium (Duoneb) 3 ml NEB Q6H PRN PRN Reason: SOB &/or Wheezing Alendronate Sodium (Fosamax) 70 mg PO Q7DAYS@0600 [facility] Allopurinol (Zyloprim) 300 mg PO DAILY [facility] Last Admin: 04/13/18 09:42 Dose: 300 mg Amiodarone HCl (Cordarone) 200 mg PO DAILY [facility] Last Admin: 04/13/18 09:43 Dose: 200 mg Ascorbic Acid (Vitamin C) 500 mg PO BID [facility] Last Admin: 04/13/18 09:43 Dose: 500 mg Atorvastatin Calcium (Lipitor) 40 mg PO HS [facility] Last Admin: 04/12/18 20:37 Dose: 40 mg Bisacodyl (Dulcolax) 10 mg PO DAILYPRN PRN PRN Reason: Constipation Bisoprolol Fumarate/HCTZ (Ziac 10-6.25) 1 tab PO BID [facility] Last Admin: 04/13/18 09:42 Dose: 1 tab Calcium Carbonate (Oscal-500) 500 mg PO DAILY [facility] Last Admin: 04/13/18 09:42 Dose: 500 mg Coenzyme Q10 (Coenzyme Q10) 50 mg PO [facility] Last Admin: 04/12/18 20:37 Dose: 50 mg Enoxaparin Sodium (Lovenox) 30 mg SC 09 [facility] Last Admin: 04/13/18 09:44 Dose: 30 mg Ferrous Sulfate (Feosol) 325 mg PO BID-[facility] Last Admin: 04/13/18 09:43 Dose: 325 mg Fish Oil (Fish Oil) 1,000 mg PO HS [facility] Last Admin: 04/12/18 20:44 Dose: 1,000 mg Folic Acid (Folvite) 1 mg PO DAILY [facility] Last Admin: 04/13/18 09:42 Dose: 1 mg Gabapentin (Neurontin) 300 mg PO HS [facility] Last Admin: 04/12/18 20:37 Dose: 300 mg Ampicillin Sodium/Sulbactam (Sodium 3 gm/ Sodium Chloride) 100 mls @ 200 mls/ hr IVPB 0200,0800,1400,2000 [facility] Last Admin: 04/13/18 14:08 Dose: 100 mls Iron/Minerals/Multivitamins (Theragran M) 1 tab PO DAILY [facility] Last Admin: 04/13/18 09:43 Dose: 1 tab Magnesium Hydroxide (Milk Of Magnesium) 30 ml PO DAILYPRN PRN PRN Reason: Constipation Morphine Sulfate (Morphine) 2 mg SLOW IVP Q6H PRN PRN Reason: Pain Last Admin: 04/11/18 16:42 Dose: 2 mg Nifedipine (Procardia Xl) 30 mg PO DAILY [facility] Last Admin: 04/13/18 09:43 Dose: 30 mg Ondansetron HCl (Zofran Odt) 4 mg PO Q6H PRN PRN Reason: Nausea/Vomiting Ondansetron HCl (Zofran) 4 mg IVP Q6H PRN PRN Reason: Nausea/Vomiting Last Admin: 04/10/18 23:29 Dose: 4 mg Pantoprazole Sodium (Protonix) 40 mg PO DAILY [facility] Last Admin: 04/13/18 09:42 Dose: 40 mg Polyethylene Glycol (Miralax) 17 gm PO DAILY [facility] Last Admin: 04/13/18 12:24 Dose: Not Given Potassium Chloride (K-Dur) 20 meq PO QAM-WM [facility] Last Admin: 04/13/18 09:43 Dose: 20 meq Senna/Docusate Sodium (Senokot S) 1 tab PO BID [facility] Last Admin: 04/13/18 12:24 Dose: Not Given Sodium Biphosphate/Sodium Phosphate (Fleet Enema) 133 ml IA ONE PRN PRN Reason: Constipation Stop: 05/10/18 22:28 Sodium Chloride (Flush - Normal Saline) 10 ml IVF Q12HR [facility] Last Admin: 04/13/18 14:09 Dose: 10 ml Sodium Chloride (Flush - Normal Saline) 10 ml IVF PRN PRN PRN Reason: Saline Flush Last Admin: 04/12/18 14:12 Dose: 10 ml Thiamine HCl (Thiamine) 100 mg PO DAILY [facility] Last Admin: 04/13/18 09:42 Dose: 100 mg Tramadol HCl (Ultram) 50 mg PO Q6H PRN PRN Reason: Moderate Pain (4-6) Zolpidem Tartrate (Ambien) 5 mg PO HSPRN PRN PRN Reason: Insomnia Last Admin: 04/12/18 20:37 Dose: 5 mg
[2018-04-13] MEDS: Gabapentin 300 MG CAP PO SCH (21:22)
[2018-04-13] MEDS: Atorvastatin Calcium 40 MG TAB PO SCH (21:22)
[2018-04-13] MEDS: Ubidecarenone 50 MG CAP PO SCH (21:22)
[2018-04-13] MEDS: Zolpidem Tartrate 5 MG TAB PO PRN (21:22)
[2018-04-14] MEDS: Ondansetron HCl/PF 4 MG/2 ML Vial IVP PRN (02:14)
[2018-04-14] MEDS: Ampicillin/Sulbactam 3 GM in Sodium Chloride 0.9% 100 ML IVPB SCH (02:20)
[2018-04-14] MEDS ORDERED: Morphine 4 MG/ML VIAL ONE ×2 (09:35→09:36)
[2018-04-14] MEDS ORDERED: Morphine 4 MG/ML VIAL SLOW IVP SCH (10:45)
[2018-04-14 13:30] VITALS: BP 140/70; TEMP 97.8
[2018-04-14] MEDS: HYDROcodone/Acetaminophen 5/325 mg Tablet PO PRN (15:23)
[2018-04-17] MEDS ORDERED: Alendronate Sodium 70 mg Tablet PO SCH (06:00)
== END 2018-04-14 15:48 | disposition home or self-care (01) | DRG 578 ==
LOC: SJJU 09:49 → SURG B 22:27
PROVIDERS: ADMIT Plastic Surgery; ATTEND Plastic Surgery
PROC: 0HRJX74 Replacement of Left Upper Leg Skin with Autologous Tissue Substitute, Partial Thickness, External Approach (ICD-10-PCS; principal; 2018-04-10)
PROC: 0HRHX74 Replacement of Right Upper Leg Skin with Autologous Tissue Substitute, Partial Thickness, External Approach (ICD-10-PCS; 2018-04-10)
PROC: 0HBJXZZ Excision of Left Upper Leg Skin, External Approach (ICD-10-PCS; 2018-04-10)
PROC: 0HBHXZZ Excision of Right Upper Leg Skin, External Approach (ICD-10-PCS; 2018-04-10)
PROC: 0HQJXZZ Repair Left Upper Leg Skin, External Approach (ICD-10-PCS; 2018-04-10)
PROC: 0HBJXZZ Excision of Left Upper Leg Skin, External Approach (ICD-10-PCS; 2018-04-10)
PROC: 0HBHXZZ Excision of Right Upper Leg Skin, External Approach (ICD-10-PCS; 2018-04-10)
DX: S71.002A Unspecified open wound, left hip, initial encounter (principal); S71.102A Unspecified open wound, left thigh, initial encounter; S71.101A Unspecified open wound, right thigh, initial encounter; I10 Essential (primary) hypertension; E78.5 Hyperlipidemia, unspecified; I48.91 Unspecified atrial fibrillation; Z79.01 Long term (current) use of anticoagulants; Z88.6 Allergy status to analgesic agent; Z88.1 Allergy status to other antibiotic agents; Z88.0 Allergy status to penicillin; Z88.2 Allergy status to sulfonamides; Z88.7 Allergy status to serum and vaccine; Z88.8 Allergy status to other drugs, medicaments and biological substances; Z85.3 Personal history of malignant neoplasm of breast; Z85.828 Personal history of other malignant neoplasm of skin; Z90.710 Acquired absence of both cervix and uterus
CPT/HCPCS: 36415; 80048; 80053; 85025; 93005; 93010; 94640; A4216; G8978-GP-CI; G8979-GP-CI; G8980-GP-CI; J0171; J0295; J1644; J1650; J2001; J2270; J2405; J2550; J2704; J3010; J7050; J7620; Q0162; S0020; S0028

== ENCOUNTER 2018-04-27 12:30 | Outpatient (CLI) | payer MEDICARE, BC ==
--- NOTE | 2018-04-27 15:29 | ULT ---
RIGHT LOWER EXTREMITY VENOUS DUPLEX EXAM: HISTORY: Leg swelling. FINDINGS: Real-time color Doppler evaluation of the right lower extremity was performed form groin to calf. Th is includes evaluation of the common femoral, superficial and profunda femoral, saphenous, popliteal, and posterior tibial veins. This shows a patent deep venous system. There is normal compressibilit y and augmentation. There is no evidence of DVT. IMPRESSION: No evidence of deep vein thrombosis of the right lower extremity. POS: [facility]
== END 2018-04-27 12:31 | disposition home or self-care (01) ==
LOC: SCSULT 12:30
PROVIDERS: ATTEND Plastic Surgery
DX: Z03.89 Encounter for observation for other suspected diseases and conditions ruled out (principal)

== ENCOUNTER 2018-06-17 11:52 | Outpatient (CLI) | payer MEDICARE, BC ==
--- NOTE | 2018-06-17 13:53 | RAD ---
TWO VIEWS OF THE LUMBAR SPINE: DATE: 06/17/2018. COMPARISON: None. HISTORY: Back pain. FINDINGS: There is degenerative mild lumbar spine levoscoliosis. There is disk space narrowing and sclerotic e nd plate change on the right at L1-2 and L2-3. The lateral examination demonstrates no significant anterolisthesis or retrolisthesis. At T12-L1, L1 -2, and L2-3, there is disk space narrowing with degenerative end plate change and anterior osteophyt e formation. No acute osseous abnormality noted. IMPRESSION: Multilevel degenerative change within the lumbar spine as above. POS: [facility]
== END 2018-06-17 11:53 | disposition home or self-care (01) ==
LOC: BICRAD 11:52
PROVIDERS: ATTEND Specialist
DX: M54.9 Dorsalgia, unspecified (principal); M47.816 Spondylosis without myelopathy or radiculopathy, lumbar region
CPT/HCPCS: 72100

== ENCOUNTER 2018-10-01 09:15 | Outpatient (CLI) | payer MEDICARE, BC ==
--- NOTE | 2018-10-01 11:19 | BD ---
Exam: DEXA Bone Density Comparison: 10-08-17 History: 78-year-old post-menopausal female for screening. Lumbar Spine: BMD (g/cm2) L1 1.043 T-Score: 0.5 L2 1.117 T-Score: 0.8 L3 1.002 T-Score: -0.7 L4 0.943 T-Score: -1.1 L1-L4 1.023 T-Score: -0.2 Femoral Neck: 0.566 T-Score: -2.5 Total Femur: 0.759 T-Score: -1.5 Impression: Osteoporosis. This patient has between a 6-7 x increased risk of fracture when compared with young pa tients with normal bone mineral density. POS: [facility]
== END 2018-10-01 09:16 | disposition home or self-care (01) ==
LOC: BICMAMMO 09:15
PROVIDERS: ATTEND Specialist
DX: Z13.820 Encounter for screening for osteoporosis (principal); M81.0 Age-related osteoporosis without current pathological fracture
CPT/HCPCS: 77080

== ENCOUNTER 2018-10-31 16:09 | Observation (INO) | payer MEDICARE, BC ==
[~2018-10-31 16:09] MED LIST changes: -Calcium Chloride 1 GM/10 ML Abboject SYRINGE ONE; -PHENYLEPHRINE-NS 100 MCG/ML 10 ML SYRINGE ONE; -Sodium Bicarb 50 MEQ/50 ML Abboject 8.4% SYRINGE ONE
[2018-10-31] MEDS ORDERED: Lidocaine 1% w/Epinephrine 1:100K 20 ML VIAL ONE (16:47)
[2018-10-31 17:57] LABS: #Lymphocytes 1.3 thou/uL (1.20-3.40); #Monocytes 0.6 thou/uL (0.11-0.59); #Neutrophils 8.7 thou/uL (1.40-6.50); %Basophils 0.4 % (0.0-1.0); %Eosinophils 0.1 % (0.0-10.0); %Monocytes 5.7 % (0.0-10.0); %Neutrophils 81.9 % (42.0-75.0); Hemoglobin 14.5 g/dL (12.0-16.0); Mean Corpuscular HGB CONC 33.4 g/dL (32.0-36.0); Mean Corpuscular Hemoglobin 31.6 pg (27.0-31.0); Mean Corpuscular Volume 94.7 fL (78.0-98.0); Mean Platelet Volume 8.2 fL (7.4-10.4); Platelet Count 322 thou/uL (130-400); RBC Distribution Width 13.5 % (11.5-14.5); Red Blood Cell (RBC) Count 4.59 mill/uL (4.20-5.40); White Blood Cell (WBC) Count 10.6 thou/uL (4.8-10.8)
[2018-10-31 18:18] LABS: ALT (SGPT) 17 U/L (8-55); AST (SGOT) 35 U/L (5-34); Albumin 5.1 g/dL (3.4-4.8); Alkaline Phosphatase 51 U/L (40-150); Anion Gap 14 mmol/L (10-20); BUN (Urea Nitrogen) 18 mg/dL (9.8-20.1); Bilirubin, Total 0.5 mg/dL (0.2-1.2); Calc. Creatinine Clearance 0 mL/min (70-130); Carbon Dioxide 30 mmol/L (23-31); Chloride 84 mmol/L (98-107); Estimated GFR-MDRD 49; Globulin 3.6 g/dL (2.4-3.5); Glucose 134 mg/dL (83-110); Lipase 82 U/L (8-78); Protein, Total 8.7 g/dL (6.0-8.3); Sodium 124 mmol/L (136-145)
--- NOTE | 2018-10-31 18:42 | CT ---
FCT abdomen and pelvis with IV contrast. Oral contrast was not administered. INDICATIONS: Abdominal pain. Back pain. COMPARISON: 02/13/2018 CT abdomen and pelvis FINDINGS: Lung bases are clear Gallbladder is mildly distended. There is mild intra and extrahepatic biliary duct dilatation, slight ly more prominent than on the prior study. Spleen and pancreas unremarkable. Stomach and duodenum appear unremarkable. Adrenal glands appear normal. Kidneys appear unremarkable. Collecting structures and urinary bladder appear unremarkable. Small exophytic cyst from the lateral right kidney is stable Small bowel loops are normal caliber and exhibit normal fold pattern. Appendix not identified. Diverticulosis of the sigmoid colon and left colon. Aorta is normal caliber. No evidence of retroperitoneal or mesenteric adenopathy. Calcifications in the uterus consistent with fibroids. Adnexa unremarkable. Subcutaneous tissues, abdominal wall, and muscular structures appear unremarkable. Osseous structures appear unremarkable. IMPRESSION: Mild gallbladder distention and mild biliary duct dilatation. Otherwise no acute finding or interval change apparent.
[2018-10-31] MEDS ORDERED: Morphine 4 MG/ML VIAL ONE ×2 (20:02→22:20)
[2018-10-31 20:39] LABS: Bilirubin Negative (Negative); Blood, Urine Negative (Negative); Clarity CLEAR (Clear); Glucose, Urine (Dipstick) Negative (Negative); Leukocyte Negative (Negative); Nitrite Negative (Negative); Protein, Urine (Dipstick) 100 mg/dL (Neg-Trace); Specific Gravity, Urine 1.018 (1.002-1.036); Urobilinogen 0.2 mg/dL (0.2-1.0)
[2018-10-31 20:40] LABS: Bacteria/HPF None Seen HPF (None Seen); Hyaline Casts/LPF 4-6 HYALINE CAST LPF (0-3 Hyaline); RBC/HPF 0-3 HPF (0-3); Squamous Epithelial 0-3 HPF (0-3); WBC/HPF None Seen HPF (0-3)
--- NOTE | 2018-10-31 21:30 | ULT ---
GALLBLADDER ULTRASOUND 10/31/18 INDICATION: Biliary duct dilatation noted on CT. Gallbladder shows mild echogenic sludge. No evidence of gallston es. Gallbladder wall thickness is normal. Negative Valderrama's sign. The common duct is mildly dilated measured at 10 mm. Pancreatic duct is also mildly prominent. The li lisandro appears unremarkable. There is mild intrahepatic ductal dilatation which was noted on CT. Pancreas is otherwise unremarkable. The right kidney is imaged and shows increased cortical echogenic ity. A small renal cyst is seen which was noted on CT. IMPRESSION: There is mild intra and extrahepatic biliary duct dilatation which corresponds to the CT findings. N o definite gallstones identified by ultrasound. Suggest GI consultation and consider ERCP procedure. POS: [facility]
[2018-10-31] MEDS ORDERED: Ondansetron PF 4 MG/2 ML Vial ONE (22:52)
[2018-10-31 23:22] VITALS: BMI 20.6
[2018-10-31] MEDS ORDERED: Acetaminophen 325 MG TAB PO PRN (23:48)
[2018-10-31] MEDS ORDERED: Ondansetron PF 4 MG/2 ML Vial IVP PRN (23:48)
[2018-10-31] MEDS ORDERED: Ondansetron ODT 4 MG TAB PO PRN (23:48)
[2018-11-01] MEDS: Zolpidem Tartrate 5 MG TAB PO PRN ×2 (00:41→20:21)
[2018-11-01] MEDS: Sodium Chloride 0.9% 1,000 ML IV SCH ×2 (03:46→14:08)
--- NOTE | 2018-11-01 04:13 | HP ---
PRIMARY CARE PHYSICIAN: Dr. Blair Chávez. CODE STATUS: Full code. TIME OF EVALUATION: 11:00 p.m. CHIEF COMPLAINT: Right upper quadrant pain. HISTORY OF PRESENT ILLNESS: This is an 78-year-old female patient with past medical history of hypertension, hyperlipidemia, gout, osteoarthritis, and GERD. The patient came to the hospital after having right upper quadrant pain radiating to the back with no clear triggers. No alleviating factors associated with nausea and vomiting. The patient was vomiting bilious content. During my examination, no clear triggers, no alleviating factors, all improving with medications given in the ER. The patient received ultrasound of the right upper quadrant and that showed that the patient has a CBD dilation. No evident stone was seen; however, it looks that there might be some CBD obstruction. GI has been perseverating for procedure in the morning. We will keep the patient n.p.o. REVIEW OF SYSTEMS: CONSTITUTIONAL: No fever, chills, or generalized weakness. RESPIRATORY: No cough, sputum production, or shortness of breath. CARDIOVASCULAR: No chest pain or palpitation. GASTROINTESTINAL: The patient has nausea, vomiting up greenish bilious content, abdominal pain in her right upper quadrant radiating to the back. LANDFILL ATTENDANT: No dizziness, headache, or feeling lightheaded. GENITOURINARY: No burning on urination. EXTREMITIES: No leg swelling. All other systems were reviewed and negative except for the findings mentioned above. PAST MEDICAL HISTORY: As mentioned in the HPI. PAST SURGICAL HISTORY: Skin graft, appendectomy, and bilateral . SOCIAL HISTORY: The patient drinks everyday, less than five drinks per day. No drug use. Former tobacco user, smoked cigarettes. The patient quit smoking more than 10 years ago. Lives at home with family. Smoking status, former smoker. KNOWN ALLERGIES: To sulfa. REPORTED MEDICATIONS: 1. Allopurinol. 2. Nifedipine. 3. Atenolol. 4. Alendronate. 5. Pantoprazole. 6. Atorvastatin. 7. Calcium. 8. Fish oil. 9. Centrum Silver. PHYSICAL EXAMINATION: VITAL SIGNS: On presentation, blood pressure 174/86 with heart rate 89, respiratory rate was 18, temperature 98.2, pain 10/10, and oxygen saturation was 98% on room air. GENERAL APPEARANCE: The patient is alert, oriented, in mild distress due to nausea and vomiting. HEENT: Eyes, normal conjunctivae. Moist oral mucosa. Anicteric. No JVD. RESPIRATORY: Bilateral air entry. No rales. No wheezes. Symmetric expansion. CARDIOVASCULAR: Normal rate. Regular rhythm. No murmurs. No gallop. No edema. ABDOMEN: Soft. Normal bowel sounds. The patient has right upper quadrant pain during palpation. MUSCULOSKELETAL: Baseline range of motion and strength. No tenderness. SKIN: Warm, intact. No pallor. No rash. No redness. Peripheral pulses are present. Capillary refill seems to intact. NEURO: No evidence of any new focal weakness. Baseline speech. Cranial nerves seem to be intact. PSYCH: The patient is in good mood. No anxiety. Optimal judgment. DIAGNOSTIC STUDIES: CARDIOVASCULAR STUDIES: EKG was reviewed. The patient has normal sinus rhythm with a rate of 88, QTc 481, moderate voltage for LVH. IMAGING STUDIES: Abdomen and pelvis CT was done. The patient has mild gallbladder distention with mild biliary duct dilation. Abdominal ultrasound was done. The patient has mild intra and extrahepatic biliary duct dilation, which corresponds to the CT findings. No definite gallstone identified on ultrasound. Suggest GI consultation and consider ERCP procedure. LABORATORY RESULTS: Labs were reviewed. The patient has white count 10.6, hemoglobin 14.5, MCV 94.7, and platelet count 322. Chemistry; sodium , carbon dioxide 30, anion gap 14, BUN 18, creatinine 1.07, GFR 49, and glucose 134. Serum osmolality 269, calcium 11, AST 35, ALT 17, and alkaline phosphatase 51. Troponin less than 0.01. Serum total protein 8.7, albumin is 5.1, globulin 3.6, albumin-globulin ratio is 1.2, and lipase 82. Urine was done and was negative. ASSESSMENT AND PLAN: The patient will be placed in the hospital with following medical problems; 1. Right upper quadrant pain, likely secondary to biliary obstruction. No definite stone was identified on ultrasound; however, there is CBD dilation of 1 cm. We will call GI for consultation and follow recommendations. The patient does not have any signs of sepsis at this point. If it appears, we will start the patient on antibiotics. 2. Hyponatremia. The patient is receiving IV fluids, we will monitor, this seems to be due to dehydration and nausea and vomiting. 3. Hypercalcemia, unclear etiology, might be due to dehydration. We will hydrate, we will monitor and we will treat accordingly. 4. Metabolic alkalosis with bicarb of 30. This could be likely secondary to contraction alkalosis from dehydration and the patient's poor intake and vomiting. Job ID: [id number]
[2018-11-01] MEDS ORDERED: Ondansetron PF 4 MG/2 ML Vial IVP PRN (05:19)
[2018-11-01] MEDS: Morphine 4 MG/ML VIAL SLOW IVP PRN ×4 (05:28→18:37)
[2018-11-01 05:50] LABS: Band 2 % (5-11); Lymphocytes 11 % (21-51); MDiff Complete? YES; Mean Corpuscular HGB CONC 32.6 g/dL (32.0-36.0); Mean Corpuscular Hemoglobin 32.5 pg (27.0-31.0); Mean Corpuscular Volume 99.7 fL (78.0-98.0); Mean Platelet Volume 8.6 fL (7.4-10.4); Monocytes 3 % (0-10); Neutrophil 84 % (42-75); Platelet Count 274 thou/uL (130-400); RBC Distribution Width 13.7 % (11.5-14.5); Red Blood Cell (RBC) Count 3.98 mill/uL (4.20-5.40); White Blood Cell (WBC) Count 9.3 thou/uL (4.8-10.8)
[2018-11-01 05:58] LABS: Anion Gap 15 mmol/L (10-20); BUN (Urea Nitrogen) 18 mg/dL (9.8-20.1); Calc. Creatinine Clearance 39 mL/min (70-130); Calcium 9.7 mg/dL (7.8-10.44); Carbon Dioxide 23 mmol/L (23-31); Chloride 95 mmol/L (98-107); Estimated GFR-MDRD 53; Glucose 98 mg/dL (83-110); Potassium 3.8 mmol/L (3.5-5.1); Sodium 129 mmol/L (136-145)
[2018-11-01] MEDS: Ubidecarenone 50 MG CAP PO SCH (08:22)
[2018-11-01] MEDS: Fish Oil 1,000 MG CAP PO SCH (08:22)
[2018-11-01] MEDS: Multivitamin W/ Minerals 1 TAB PO SCH (08:22)
[2018-11-01] MEDS: Allopurinol 300 MG TAB PO SCH (08:22)
[2018-11-01] MEDS ORDERED: Enoxaparin Sodium 40 MG/0.4 ML SYRINGE SC SCH (09:00)
[2018-11-01] MEDS ORDERED: Calcium Carbonate 600 MG TAB PO SCH (09:00)
[2018-11-01 09:37] LABS: ALT (SGPT) 14 U/L (8-55); AST (SGOT) 31 U/L (5-34); Alkaline Phosphatase 41 U/L (40-150); Bilirubin, Direct 0.2 mg/dL (0.1-0.3); Bilirubin, Total 0.4 mg/dL (0.2-1.2); Protein, Total 6.9 g/dL (6.0-8.3)
--- NOTE | 2018-11-01 10:28 | MRI ---
FMR of the abdomen without IV contrast INDICATION: History of possible choledocholithiasis and extrahepatic biliary ductal dilatation COMPARISON: Right upper quadrant ultrasound dated 10/31/2018, CT of the abdomen and pelvis dated [address] of the chest, abdomen and pelvis dated 02/13/2018 TECHNIQUE: Multiplanar multisequence MR images were obtained of the abdomen utilizing MRCP protocol. No IV contrast was administered for this examination. FINDINGS: The common bile measures up to 1 cm in size which is slightly more prominent than seen on the compari son CT evaluation 2007 with the common bile measured 7 mm. No definite intraluminal stone is evident. There is a small suspected focal region of signal void within the proximal common bile duct on the a xial T2 haste images only which is likely related to flow related phenomenon as the signal defect is not re-created on additional T2 weighted sequences. The gallbladder is moderately distended. There is mild intrahepatic biliary ductal dilatation. No definite focal mass is evident. The main pancreatic duct measures 2 mm at the level of the body which is within normal limits. There is a 4 mm peripancreatic ductal cystic abnormality in the pancreatic tail on image 15 of series 2. Ad ditional smaller 1.4 mm peripancreatic ductal cystic abnormality is seen within the pancreatic tail o n image 31 of series 3. There are small bilateral renal cysts. Adrenal glands and spleen appear within normal limits. No foca l hepatic lesion is evident. No bone marrow signal abnormality is noted. There is levoscoliosis of th e lumbar spine. IMPRESSION: 1. Moderate intrahepatic and extra hepatic biliary ductal dilatation without demonstrable cause. No v isible gallstones, intraluminal stricture or mass near the ampulla. 2. Moderate distention of the gallbladder. 3. Bilateral renal cysts. 4. Small peripancreatic ductal cystic abnormality within the distal pancreatic tail. These may reflec t small sidebranch IPMN lesions or small serous cystic lesions of the pancreas. Recommend a follow-up MRI abdomen with and without contrast in 3-6 months to document stability.
--- NOTE | 2018-11-01 12:33 | PDOC.PN ---
- Subjective Encounter Start Date: 11/01/18 Encounter Start Time: 07:00 Pt seen for followup re: hyponatremia. feels better, still has back pain. - Objective Resuscitation Status - Order Detail: 10/31/18 23:48 Resuscitation Status Routine Resuscitation Status: FULL: Full Resuscitation Vital Signs & Weight: Vital Signs (12 hours) Temp Pulse Resp BP Pulse Ox 11/01/18 11:56 98.6 F 82 20 173/81 H 100 11/01/18 07:40 98.1 F 90 16 145/73 H 100 11/01/18 03:50 98.2 F 81 20 165/74 H 100 Weight Weight 120 lb 1.6 oz I&O: 10/31/18 11/01/18 11/02/18 06:59 06:59 06:59 Intake Total 440 Output Total 400 Balance 40 Result Diagrams: 11/01/18 04:48 11/01/18 04:48 Phys Exam - Physical Examination Constitutional: NAD HEENT: moist MMs, sclera anicteric, oral pharynx no lesions, 2+ tonsils Neck: no nodes, no JVD, supple, full ROM Respiratory: clear to auscultation bilateral Cardiovascular: RRR, no rub S1, S2 Gastrointestinal: soft, non-tender, no distention, positive bowel sounds Neurological: moves all 4 limbs Psychiatric: normal affect, A&O x 3 Dx/Plan (1) Hyponatremia Code(s): E87.1 - HYPO-OSMOLALITY AND HYPONATREMIA Status: Acute Comment: sodium improved to 129 today (2) Dilation of biliary tract Code(s): K83.8 - OTHER SPECIFIED DISEASES OF BILIARY TRACT Status: Acute Comment: await MRCP (3) Hyperlipidemia Code(s): E78.5 - HYPERLIPIDEMIA, UNSPECIFIED Status: Chronic Comment: Continue statin. (4) Hypertension Code(s): I10 - ESSENTIAL (PRIMARY) HYPERTENSION Status: Chronic Comment: resume home medications except for chlorthalidone - Plan * . Review of Systems - Review of Systems Constitutional: negative: fever, chills, sweats, weakness, malaise Respiratory: negative: Cough, Shortness of Breath, SOB with Excertion, Pleuritic Pain, Wheezing Cardiovascular: negative: chest pain, palpitations, orthopnea, paroxysmal nocturnal dyspnea, edema, light headedness Gastrointestinal: Abdominal Pain. negative: Nausea, Vomiting, Diarrhea, Constipation, Melena, Hematochezia Genitourinary: negative: Dysuria, Frequency, Incontinence, Hematuria, Retention - Medications/Allergies Allergies/Adverse Reactions: Allergies Allergy/AdvReac Type Severity Reaction Status Date / Time codeine Allergy Severe Verified 10/31/18 23:42 pneumococcal vaccine Allergy Severe Verified 04/09/18 13:37 [Pneumococcal Vaccine] ciprofloxacin [From Cipro] Allergy Unknown Verified 10/31/18 23:42 nitrofurantoin Allergy Unknown Verified 10/31/18 23:42 macrocrystalline [From Macrodantin] Penicillins Allergy Unknown Verified 10/31/18 23:42 Sulfa (Sulfonamide Allergy Unknown Verified 10/31/18 23:42 Antibiotics) aspirin AdvReac Unknown Verified 10/31/18 23:42 Medications: Current Medications Acetaminophen (Tylenol) 650 mg PO Q4H PRN PRN Reason: Headache/Fever/Mild Pain (1-3) Last Admin: 11/01/18 00:41 Dose: 650 mg Allopurinol (Zyloprim) 300 mg PO DAILY [facility] Last Admin: 11/01/18 08:22 Dose: Not Given Atorvastatin Calcium (Lipitor) 40 mg PO [facility] Coenzyme Q10 (Coenzyme Q10) 100 mg PO DAILY [facility] Last Admin: 11/01/18 08:22 Dose: Not Given Enoxaparin Sodium (Lovenox) 40 mg SC 0900 [facility] Last Admin: 11/01/18 08:22 Dose: Not Given Fish Oil (Fish Oil) 1,000 mg PO DAILY [facility] Last Admin: 11/01/18 08:22 Dose: Not Given Sodium Chloride (Normal Saline 0.9%) 1,000 mls @ 100 mls/hr IV .Q10H [facility] Last Admin: 11/01/18 03:46 Dose: 1,000 mls Iron/Minerals/Multivitamins (Theragran M) 1 tab PO DAILY [facility] Last Admin: 11/01/18 08:22 Dose: Not Given Morphine Sulfate (Morphine) 2 mg SLOW IVP Q4H PRN PRN Reason: Severe Pain (7-10) Last Admin: 11/01/18 09:37 Dose: 2 mg Ondansetron HCl (Zofran Odt) 4 mg PO Q6H PRN PRN Reason: Nausea/Vomiting Ondansetron HCl (Zofran) 4 mg IVP Q6H PRN PRN Reason: Nausea/Vomiting Ondansetron HCl (Zofran) 4 mg IVP Q4H PRN PRN Reason: Nausea/Vomiting Last Admin: 11/01/18 05:30 Dose: 4 mg Pantoprazole Sodium (Protonix) 40 mg PO DAILY [facility] Last Admin: 11/01/18 08:22 Dose: Not Given Zolpidem Tartrate (Ambien) 5 mg PO HSPRN PRN PRN Reason: Insomnia Last Admin: 11/01/18 00:41 Dose: 5 mg
[2018-11-01] MEDS ORDERED: hydrALAZINE 20 MG/ML VIAL SLOW IVP PRN (12:41)
[2018-11-01] MEDS ORDERED: NIFEdipine XL 30 MG TAB PO SCH (16:15)
[2018-11-01] MEDS ORDERED: Cyclobenzaprine 10 MG TAB PO PRN (16:43)
[2018-11-01] MEDS ORDERED: Cyclobenzaprine 10 MG TAB PO SCH (17:00)
[2018-11-01] MEDS ORDERED: Atorvastatin Calcium 40 MG TAB PO SCH (21:00)
--- NOTE | 2018-11-02 00:24 | CON ---
DATE OF CONSULTATION: 11/01/2018 REASON FOR CONSULTATION: Abnormal GI imaging with possible choledocholithiasis. CONSULTING PHYSICIAN: Dr. Rob Turcios. HISTORY OF PRESENT ILLNESS: The patient is an 78-year-old female with past medical history of hypertension, hyperlipidemia, gout, osteoarthritis, GERD, and chronic lower back pain, presenting with complaints of increased right upper quadrant abdominal pain. The patient states that she had been having intermittent chronic lower back pain that has been present for years, but over the course of the last 3 to 4 days had a significant worsening of her back pain located primarily in the right lower back above the posterior iliac crest. This pain was characterized as "just pain" was constant with waxing/waning severity, was nonradiating and would reach a severity of 10/10. There were no clear exacerbating factors, but better with the use of narcotics, a TENS unit and placement of heating pad. This increased back pain was associated with increased nausea, nonbloody emesis x1, anorexia, and increased constipation with her last bowel movement being approximately 3 days ago that was semi-solid in consistency. With this continued back pain, it prompted her to seek healthcare assistance at the [facility] ER and while in the ER, she underwent a CT of the abdomen and pelvis, which showed a distended gallbladder, but also showed mild intra and extrahepatic biliary dilatation, diverticulosis of the left colon as well as the presence of uterine fibroids. With the presence of this intra and extrahepatic dilatation, there was concern for choledocholithiasis and she was subsequently admitted to the hospital for further evaluation. Currently, she denies any further episodes of nausea, vomiting, fevers, chills, abdominal pain, GI bleeding, dysphagia, odynophagia, or jaundice. REVIEW OF SYSTEMS: A 10-category review of systems was obtained with all responses negative, negative except for the pertinent positives as listed in HPI. PAST MEDICAL HISTORY: As per HPI. PAST SURGICAL HISTORY: Skin graft placement, appendectomy. FAMILY HISTORY: Denies any GI malignancies. SOCIAL HISTORY: The patient drinks approximately 3-5 alcoholic beverages per day, but denies any tobacco or illicit drug use. OUTPATIENT MEDICATIONS: Reviewed. ALLERGIES: SULFA. PHYSICAL EXAMINATION: VITAL SIGNS: Temperature 98.5, pulse 74, blood pressure 158/73, respiratory rate 16, saturating 97% on room air. GENERAL: The patient was lying in bed, in mild distress. Alert and oriented x4. HEENT: Normocephalic, atraumatic. NECK: Supple. No JVD or scleral icterus noted. CARDIOVASCULAR: Regular rate and rhythm with no discernible murmurs, gallops, or rubs. RESPIRATORY: Clear to auscultation bilaterally with no discernible wheezes or rales. BACK: No point tenderness along the spinous processes. However, she had significant tenderness to palpation along the paraspinal musculature in the right mid to right lower back at the lumbar region. This reproduced the pain that she had been having prompting her admission. ABDOMEN: Normoactive bowel sounds. Soft, nontender, nondistended. EXTREMITIES: No cyanosis, clubbing, or edema. LABORATORY DATA: CBC with a white blood cell count of 9.3, hemoglobin 13, hematocrit 39.7, platelets 274. Chemistry with a sodium 129, potassium 3.8, chloride 95, CO2 of 23, BUN 18, creatinine 1, glucose 98. AST 31, ALT 14, alkaline phosphatase 41, total bilirubin 0.4, albumin 5.1, calcium 11, lipase 82. IMAGING DATA: CT of the abdomen and pelvis obtained on October 31, 2018, showed a distended gallbladder with mild intra and extrahepatic dilatation without evidence of obstruction. It also showed diverticulosis within the left colon and the presence of uterine fibroids. Followup imaging with an adult right upper quadrant ultrasound showed the common bile duct dilated to approximately 10 mm in size as well as mild prominence of the pancreatic duct. Within the gallbladder, it did show evidence of echogenic sludge as well as intrahepatic dilatation. Lastly, an MRCP was also obtained on November 01, 2018, which showed dilation of the common bile duct to 10 mm with mild intrahepatic dilatation, but there was no presence of stones, strictures or masses within the common bile duct or the ampulla. ASSESSMENT AND PLAN: The patient is an 78-year-old female with past medical history of hypertension, hyperlipidemia, gout, osteoarthritis, chronic lower back pain, gastroesophageal disease, and breast cancer status post resection and XRT presenting with exacerbation of her chronic lower back pain and abnormal gastrointestinal imaging. Abnormal gastrointestinal imaging. The patient initially presented with increased right lower back pain characterized as a constant pain that was nonradiating and achieved a significant severity of 10/10. Upon physical examination of her back, she was noted to have significant tenderness along the paraspinal musculature in the lumbar region. However, during the course of this hospitalization, she was also noted to have increased dilation of both the intra and extrahepatic biliary tree, which when coupled with this back pain was concerning for the presence of choledocholithiasis. Per the MRCP obtained on November 01, 2018, there was no evidence of stones, strictures or masses that could contribute to this particular imaging finding. At this point, the pain that she is experiencing is more consistent with exacerbation of her chronic lower back pain and not necessarily due to the imaging findings of biliary dilatation. At this point, the etiology for her biliary dilatation is unknown, but the differential could include choledochal cyst (type 4), normal variant, presence of biliary sludge within the common bile duct (although this would generate elevated transaminitis). Cholangiocarcinoma (less likely given normal alkaline phosphatase). RECOMMENDATIONS: 1. We would proceed with workup and management related to exacerbation of her chronic lower back pain. 2. We would consider obtaining an endoscopic ultrasound for further evaluation of this dilation of her biliary tree for possible etiology, but this should be performed as an outpatient. 3. We will sign off at this time. 4. Please call with any questions. Job ID: [id number]
[2018-11-02] MEDS: Sodium Chloride 0.9% 1,000 ML IV SCH (01:02)
[2018-11-02 04:22] VITALS: TEMP 97.8
[2018-11-02 08:01] VITALS: BP 158/71
[2018-11-02] MEDS: Ubidecarenone 50 MG CAP PO SCH (08:15)
[2018-11-02] MEDS: Multivitamin W/ Minerals 1 TAB PO SCH (08:15)
[2018-11-02] MEDS: Allopurinol 300 MG TAB PO SCH (08:15)
[2018-11-02] MEDS: Fish Oil 1,000 MG CAP PO SCH (08:15)
[2018-11-02] MEDS ORDERED: NIFEdipine XL 30 MG TAB PO SCH (09:00)
== END 2018-11-02 09:01 | disposition home or self-care (01) ==
LOC: ERS 16:09 → 2SW 22:31
PROVIDERS: ADMIT Internal Medicine; ATTEND Internal Medicine
DX: R10.11 Right upper quadrant pain (principal); I10 Essential (primary) hypertension; E78.5 Hyperlipidemia, unspecified; M19.90 Unspecified osteoarthritis, unspecified site; K21.9 Gastro-esophageal reflux disease without esophagitis; M10.9 Gout, unspecified; E87.1 Hypo-osmolality and hyponatremia; E83.52 Hypercalcemia; E87.3 Alkalosis; G89.29 Other chronic pain; M54.5 Low back pain; Z79.899 Other long term (current) drug therapy; Z87.891 Personal history of nicotine dependence; Z88.2 Allergy status to sulfonamides; Z88.5 Allergy status to narcotic agent; Z88.7 Allergy status to serum and vaccine; Z88.8 Allergy status to other drugs, medicaments and biological substances
CPT/HCPCS: 74177; 74181; 76705; 80048; 80053; 80076; 83690; 83930; 84484; 85025 ×2; 93005; 96361 ×3; 96374; 96375; 96376 ×2; 99285; G0378 ×2; 36415; 81003; 81015; J2001; J2270; J2405; Q9966

== ENCOUNTER 2019-01-08 08:59 | Observation (INO) | payer MEDICARE, BC ==
[2019-01-08] MEDS ORDERED: Labetalol HCl 100 MG/20 ML VIAL SLOW IVP PRN (09:40)
[2019-01-08] MEDS ORDERED: Pantoprazole 40 MG VIAL IVP SCH (09:45)
[2019-01-08] MEDS ORDERED: Dextrose 5 % And 0.9 % NaCl 1,000 ML IV SCH (09:45)
[2019-01-08] MEDS: Ondansetron PF 4 MG/2 ML Vial IVP PRN ×2 (09:53→19:48)
[2019-01-08 10:00] LABS: Bilirubin Small (Negative); Blood, Urine Negative (Negative); Clarity CLOUDY (Clear); Glucose, Urine (Dipstick) Negative (Negative); Leukocyte Moderate (Negative); Nitrite Negative (Negative); Protein, Urine (Dipstick) 30 mg/dL (Neg-Trace); Specific Gravity, Urine 1.017 (1.002-1.036); Urobilinogen 0.2 mg/dL (0.2-1.0); pH, Urine 5.5 (5.0-9.0)
[2019-01-08 10:01] LABS: #Basophils 0.3 thou/uL (0.0-0.2); #Lymphocytes 0.2 thou/uL (1.20-3.40); #Neutrophils 10.2 thou/uL (1.40-6.50); %Basophils 2.2 % (0.0-1.0); %Eosinophils 0.3 % (0.0-10.0); %Monocytes 8.8 % (0.0-10.0); %Neutrophils 86.7 % (42.0-75.0); Mean Corpuscular Hemoglobin 33.9 pg (27.0-31.0); Mean Corpuscular Volume 96.9 fL (78.0-98.0); Mean Platelet Volume 8.4 fL (7.4-10.4); Platelet Count 184 thou/uL (130-400); RBC Distribution Width 12.9 % (11.5-14.5); Red Blood Cell (RBC) Count 3.84 mill/uL (4.20-5.40); White Blood Cell (WBC) Count 11.8 thou/uL (4.8-10.8)
[2019-01-08 10:03] LABS: Bacteria/HPF 4+ HPF (None Seen); Hyaline Casts/LPF 4-6 HYALINE CAST LPF (0-3 Hyaline); Pathc Cast-AUWi Flag 1.08 (0-2.49); WBC/HPF 21-50 HPF (0-3)
[2019-01-08 10:27] LABS: ALT (SGPT) 20 U/L (8-55); AST (SGOT) 28 U/L (5-34); Albumin 4.6 g/dL (3.4-4.8); Alkaline Phosphatase 46 U/L (40-150); Anion Gap 12 mmol/L (10-20); BUN (Urea Nitrogen) 40 mg/dL (9.8-20.1); Bilirubin, Total 0.8 mg/dL (0.2-1.2); Calc. Creatinine Clearance 0 mL/min (70-130); Carbon Dioxide 32 mmol/L (23-31); Chloride 87 mmol/L (98-107); Estimated GFR-MDRD 27; Glucose 130 mg/dL (83-110); Potassium 3.5 mmol/L (3.5-5.1); Protein, Total 7.6 g/dL (6.0-8.3); Sodium 127 mmol/L (136-145)
[2019-01-08 10:44] VITALS: BMI 20.8
[2019-01-08] MEDS: traMADol HCl 50 MG TAB PO PRN ×2 (11:56→15:33)
[2019-01-08] MEDS: Dextrose 5 % And 0.9 % NaCl 1,000 ML IV SCH ×2 (11:57→19:48)
--- NOTE | 2019-01-08 12:04 | RAD ---
ABDOMEN 2 VIEWS: HISTORY: Protracted nausea and vomiting. Abdominal and back pain for 3 days. FINDINGS: Oral contrast media is noted within the GI tract which was given for CT. Lumbar spine levoscoliosis. No free intraperitoneal air. No large or small bowel obstruction. Heterogeneous bone demineraliza tion. IMPRESSION: No significant acute process of the abdomen. POS: [facility]
--- NOTE | 2019-01-08 12:10 | CT ---
ABDOMEN CT SCAN WITHOUT IV CONTRAST: HISTORY: Protracted nausea and vomiting. Abdominal and back pain. COMPARISON: 10/31/2018. FINDINGS: Small hiatal hernia with associated reflux of contrast into the distal esophagus. Borderline distend ed gallbladder without gallbladder wall thickening or gallstones but stable from the prior 10/31/2018 study. No significant common duct or intrahepatic ductal dilatation at this time. Visualized pancre as, spleen, and adrenal glands are unremarkable as evaluated without IV contrast. Small bilateral re nal cysts. No renal calculus or acute obstruction. No large or small bowel obstruction. No evid ence for significant pleural effusion. IMPRESSION: Borderline distended gallbladder but stable without gallbladder wall thickening or ductal dilatation. Small hiatal hernia with associated gastroesophageal reflux. Small bilateral renal cysts. No evid ence for other significant acute process in the abdomen. POS: [facility]
[2019-01-08] MEDS ORDERED: Loperamide HCl 2 MG CAP PO PRN (18:50)
[2019-01-08] MEDS ORDERED: Diphenoxylate HCl/Atropine Tablet PO PRN (18:55)
[2019-01-08] MEDS ORDERED: Loperamide HCl 2 MG CAP PO SCH (19:00)
[2019-01-08] MEDS ORDERED: Diphenoxylate HCl/Atropine Tablet PO SCH (19:00)
[2019-01-08] MEDS: Cephalexin 250 MG CAP PO SCH (19:49)
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
[2019-01-09] MEDS: Dextrose 5 % And 0.9 % NaCl 1,000 ML IV SCH ×3 (04:23→20:11)
[2019-01-09] MEDS: Cephalexin 250 MG CAP PO SCH ×3 (07:57→20:11)
[2019-01-09] MEDS: traMADol HCl 50 MG TAB PO PRN (07:58)
[2019-01-09] MEDS: Pantoprazole 40 MG VIAL IVP SCH (07:59)
[2019-01-09] MEDS ORDERED: Zolpidem Tartrate 5 MG TAB PO PRN (08:37)
[2019-01-09] MEDS ORDERED: Cyclobenzaprine 10 MG TAB PO PRN (08:39)
[2019-01-09] MEDS ORDERED: Acetaminophen 325 MG TAB PO PRN (08:40)
--- NOTE | 2019-01-09 09:11 | CT ---
CT Thoracic Spine WO Con History: [Compression fracture. Back pain.] Comparison: CT abdomen same day Findings: Incidental note is made of an azygos fissure. Scarring right lower lobe. Moderate coronary artery calcifications. No acute thoracic spine compression fracture. Chronic inferior endplate Schmorl's node at T11. Spinou s processes are intact. Mild tortuosity of the aorta without aneurysmal dilatation. No suspicious osteolytic or osteoblastic lesions. Impression: No thoracic spine compression deformity.
--- NOTE | 2019-01-09 09:15 | CT ---
CT Lumbar Spine WO Con History: [Back pain] Comparison: CT abdomen and pelvis October 31, 2018 Findings: Aortic contour is nonaneurysmal. No retroperitoneal periaortic adenopathy. There is dilatat ion of the common bile duct. There are circumferential disc osteophyte complexes at L1/L2, L2/L3, L3/L4, L4/L5 causing moderate to severe neural foraminal narrowing. There is also spinal canal narrowing at L1/L2 to approximate 6 mm. L2/L3 to approximately 6 mm. L3/L4 is narrowed to approximately 6 mm. L4/L5 is narrowed to approx imately 5 mm. There is abnormal increased medial and lateral epidural fat at L4/L5 narrowing the thecal sac. No acute fracture or malalignment. There is a lumbosacral transitional vertebra with the enlarged lef t L5 transverse process having anomalous articulation with the sacrum. Transverse processes are without fracture. Extensive diverticular disease with retained contrast within numerous sigmoid diverticula. Impression: 1. No acute compression deformity of the lumbar spine. No suspicious osteolytic or osteoblastic lesio ns. 2. Left IIa lumbosacral transitional vertebra. 3. Severe degenerative changes with multifocal focal moderate to severe neural foraminal and spinal c anal narrowing. MRI may be beneficial if clinically warranted. 4. Abnormal sclerosis of the sacrum bilaterally and a sagittal orientation from S1-S3 suggesting heal ing insufficiency fractures.
[2019-01-09 09:41] LABS: #Eosinphils 0.2 thou/uL (0.0-0.7); #Lymphocytes 1.5 thou/uL (1.20-3.40); #Monocytes 0.7 thou/uL (0.11-0.59); #Neutrophils 4.4 thou/uL (1.40-6.50); %Basophils 0.4 % (0.0-1.0); %Eosinophils 3.2 % (0.0-10.0); %Lymphocytes 21.4 % (21.0-51.0); %Monocytes 10.3 % (0.0-10.0); %Neutrophils 64.7 % (42.0-75.0); Hemoglobin 13.2 g/dL (12.0-16.0); Mean Corpuscular HGB CONC 32.5 g/dL (32.0-36.0); Mean Corpuscular Hemoglobin 32.2 pg (27.0-31.0); Mean Corpuscular Volume 99.2 fL (78.0-98.0); Mean Platelet Volume 8.5 fL (7.4-10.4); Platelet Count 209 thou/uL (130-400); White Blood Cell (WBC) Count 6.9 thou/uL (4.8-10.8)
[2019-01-09] MEDS: Allopurinol 300 MG TAB PO SCH (09:45)
[2019-01-09] MEDS: Ubidecarenone 50 MG CAP PO SCH (09:45)
[2019-01-09] MEDS: Fish Oil 1,000 MG CAP PO SCH (09:45)
[2019-01-09] MEDS: Atenolol 50 MG TAB PO SCH (09:45)
[2019-01-09] MEDS: Calcium Carbonate 600 MG TAB PO SCH (09:45)
[2019-01-09] MEDS: Multivit, Chewable SF 1 TAB PO SCH (09:45)
[2019-01-09] MEDS: NIFEdipine XL 30 MG TAB PO SCH (09:45)
[2019-01-09] MEDS: Chlorthalidone 25 MG TAB PO SCH (09:45)
[2019-01-09 10:19] LABS: Anion Gap 16 mmol/L (10-20); BUN (Urea Nitrogen) 20 mg/dL (9.8-20.1); Calc. Creatinine Clearance 35 mL/min (70-130); Carbon Dioxide 22 mmol/L (23-31); Chloride 101 mmol/L (98-107); Estimated GFR-MDRD 45; Glucose 105 mg/dL (83-110); Potassium 3.5 mmol/L (3.5-5.1); Sodium 135 mmol/L (136-145)
[2019-01-09] MEDS ORDERED: Atorvastatin Calcium 40 MG TAB PO SCH (21:00)
[2019-01-10] MEDS: Dextrose 5 % And 0.9 % NaCl 1,000 ML IV SCH (04:35)
[2019-01-10 07:38] VITALS: BP 161/76; TEMP 98.1
[2019-01-10] MEDS: Calcium Carbonate 600 MG TAB PO SCH (08:01)
[2019-01-10] MEDS: Fish Oil 1,000 MG CAP PO SCH (08:01)
[2019-01-10] MEDS: Ubidecarenone 50 MG CAP PO SCH (08:01)
[2019-01-10] MEDS: Chlorthalidone 25 MG TAB PO SCH (08:01)
[2019-01-10] MEDS: Multivit, Chewable SF 1 TAB PO SCH (08:01)
[2019-01-10] MEDS: NIFEdipine XL 30 MG TAB PO SCH (08:01)
[2019-01-10] MEDS: Allopurinol 300 MG TAB PO SCH (08:01)
[2019-01-10] MEDS: Cephalexin 250 MG CAP PO SCH (08:01)
[2019-01-10] MEDS: Atenolol 50 MG TAB PO SCH (08:01)
[2019-01-10] MEDS: Pantoprazole 40 MG VIAL IVP SCH (08:08)
--- NOTE | 2019-01-11 00:19 | DIS ---
DATE OF ADMISSION: 01/08/2019 DATE OF DISCHARGE: 01/10/2019 CHIEF COMPLAINT ON ADMISSION: Dehydration, abdominal and back pain. History and physical previously been dictated, I will resume from there with hospital course. The patient was placed in a medical observation bed, where urinalysis reveals she had a very severe urinary tract infection. She was begun on p.o. Keflex once her nausea and vomiting had stopped. She was given IV fluid resuscitation beginning in the ER, which continued on the floor. It was all for dehydration within the next 24 hours. She continued to complain of right-sided flank pain. It was quite intense to touch or to move. This has actually been going on for quite some time and etiology of which was never determined. It was not pyelonephritis. She did not have a fever over the next 24 hours. CAT scans were performed of the thoracic and lumbar spine and ever to rule out compression fractures, what they did reveal was severe foraminal stenosis beginning at L1 through L5 and seem to be the obvious source of pain and source of muscle spasms in her back. The daughter and the patient were extensively counseled about this and the treatment options. These being done on an outpatient basis, so that the patient by 01/10/2019 was able to be discharged home. She no longer was dehydrated. Her abdominal pain had resolved with the antibiotics for her urinary tract infection, which had created an ileus type situation and the etiology of the back pain has been determined and the treatment plan decided. The time required to evaluate the records, associate professor of counseling the patient and her daughter, answer all the questions, reconcile her medication, and prepare the chart for discharge including writing prescriptions came to 35 minutes. DIAGNOSES AT THE TIME OF DISCHARGE: 1. Dehydration, resolved. 2. Urinary tract infection with secondary abdominal pain-under treatment. 3. 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 PLAN: The patient will be sent home with Keflex 500 mg q.i.d. #28. She will also be sent with some Tylenol No. 3 q.4 hours p.r.n. pain #40. She will follow up with Dr. Chávez in 1 week. During this time, referral was made to Pain Management or injection therapy will be attempted to manage for foraminal stenosis. She was discharged in stable condition. The patient also had diarrhea during the hospitalization, but this quickly resolved with treatment with Lomotil. She will also be sent home with a prescription of Lomotil. Job ID: [id number]
[2019-01-11] MEDS ORDERED: Alendronate Sodium 70 mg Tablet PO SCH (06:00)
== END 2019-01-10 13:55 | disposition home or self-care (01) ==
LOC: ONC 08:59
PROVIDERS: ADMIT Specialist; ATTEND Specialist
DX: E86.0 Dehydration (principal); N39.0 Urinary tract infection, site not specified; M48.061 Spinal stenosis, lumbar region without neurogenic claudication; E87.1 Hypo-osmolality and hyponatremia; I10 Essential (primary) hypertension; E78.5 Hyperlipidemia, unspecified; F41.9 Anxiety disorder, unspecified; M10.9 Gout, unspecified; M19.90 Unspecified osteoarthritis, unspecified site; K21.9 Gastro-esophageal reflux disease without esophagitis; N28.1 Cyst of kidney, acquired; K44.9 Diaphragmatic hernia without obstruction or gangrene; M85.80 Other specified disorders of bone density and structure, unspecified site; Z87.891 Personal history of nicotine dependence; Z88.2 Allergy status to sulfonamides; Z88.5 Allergy status to narcotic agent; Z88.0 Allergy status to penicillin; Z88.6 Allergy status to analgesic agent; Z88.1 Allergy status to other antibiotic agents; Z88.7 Allergy status to serum and vaccine; Z79.899 Other long term (current) drug therapy
CPT/HCPCS: 72128; 72131; 74019; 74150; 80048; 80053; 81001; 85025 ×2; 87040; 87045; 87046; 87077; 87086; 87186; 87324; 87449 ×2; 87899 ×2; 96361 ×3; 96374; 96375; 96376 ×2; G0378; G0379; 36415; 87081; C9113; J2405

== ENCOUNTER 2019-02-15 11:59 | Outpatient (CLI) | payer MEDICARE, BC ==
--- NOTE | 2019-02-15 15:14 | MRI ---
MRI CERVICAL SPINE WITHOUT CONTRAST: INDICATION: An 78-year-old female with cervical stenosis. COMPARISON: CT cervical spine dated 02/13/2018. FINDINGS: Slight reversal of the cervical lordosis is stable. The visualized aspects of the posterior fossa ap pear within normal limits. Bone marrow signal intensity appears within normal limits. Very subtle r etrolisthesis of C5 on C6 is stable. At C2-C3, there is mild facet joint degenerative change, but no appreciable central canal or neural f oraminal narrowing. There is a mild broad-based bulge. At C3-4, there is mild facet joint degenerative change. No appreciable central canal or neural geoff inal narrowing. At C4-5, there is mild facet joint degenerative change and uncovertebral hypertrophy, but no apprecia ble central canal or neural foraminal narrowing. At C5-6, there is a mild broad-based bulge with uncovertebral hypertrophy greater on the right induci ng moderate right and mild left neural foraminal narrowing. The broad-based bulge causes mild to mod erate central canal narrowing with mild ventral effacement of the spinal cord. At C6-7, there is a broad-based bulge with uncovertebral hypertrophy greater on the left inducing sev ere left neural foraminal narrowing and mild right neural foraminal narrowing. At C7-T1, there is no appreciable central canal or neural foraminal narrowing. IMPRESSION: 1. Mild to moderate central canal narrowing at C5-6 with moderate right and mild left neural foramin al narrowing. 2. Severe left neural foraminal narrowing at C6-7. POS: CET
== END 2019-02-15 12:00 | disposition home or self-care (01) ==
LOC: BICMRI 11:59
PROVIDERS: ATTEND Anesthesiology Pain Medicine
DX: M48.02 Spinal stenosis, cervical region (principal)
CPT/HCPCS: 72141

== ENCOUNTER 2019-04-11 21:14 | Observation (INO) | payer MEDICARE, BC ==
--- NOTE | 2019-04-11 21:46 | CT ---
EXAM: CT of the lumbar spine without contrast HISTORY: Low back pain COMPARISON: 01/09/2019 TECHNIQUE: Multiple contiguous axial images were obtained in a CT of the lumbar spine without contras t. Sagittal and coronal reformats were performed. FINDINGS: The vertebral bodies demonstrate normal height and alignment without fracture or subluxatio n. . Severe degenerative changes are seen throughout the lumbar spine. There is curvature the spine secondary to the degenerative changes. Endplate degenerative changes are seen throughout the lumbar s pine. The intervertebral discs are narrowed and vacuum phenomenon is seen at multiple levels. There is no bony narrowing of the central canal. Moderate bony narrowing is seen of the right neural foramen at L1/2 and L2/3 and the left neural foramina at L4/5 and L5/S1. No significant change has occurred compared to the prior examination. Atherosclerotic calcifications are seen in the aorta. The other prevertebral and paraspinal soft tiss ues are unremarkable. IMPRESSION: Severe degenerative changes in the lumbar spine without acute osseous abnormality.
[2019-04-11] MEDS ORDERED: Ketorolac Tromethamine 60 MG/2 ML VIAL ONE (21:57)
[2019-04-11] MEDS ORDERED: HYDROcodone/Acetaminophen 5/325 mg Tablet ONE ×2 (22:02→22:56)
[2019-04-12 00:27] LABS: #Eosinphils 0.1 thou/uL (0.0-0.7); #Lymphocytes 1.5 thou/uL (1.20-3.40); #Monocytes 0.8 thou/uL (0.11-0.59); #Neutrophils 4.9 thou/uL (1.40-6.50); %Basophils 0.2 % (0.0-1.0); %Eosinophils 1.9 % (0.0-10.0); %Lymphocytes 20.1 % (21.0-51.0); %Monocytes 10.3 % (0.0-10.0); %Neutrophils 67.5 % (42.0-75.0); Hemoglobin 12.8 g/dL (12.0-16.0); Mean Corpuscular Hemoglobin 33.5 pg (27.0-31.0); Mean Corpuscular Volume 98.7 fL (78.0-98.0); Mean Platelet Volume 9.2 fL (7.4-10.4); Platelet Count 182 thou/uL (130-400); RBC Distribution Width 12.9 % (11.5-14.5); Red Blood Cell (RBC) Count 3.82 mill/uL (4.20-5.40); White Blood Cell (WBC) Count 7.3 thou/uL (4.8-10.8)
[2019-04-12] MEDS ORDERED: HYDROcodone/Acetaminophen 5/325 mg Tablet PO PRN (00:39)
[2019-04-12 00:44] LABS: Bilirubin Negative (Negative); Blood, Urine Negative (Negative); Clarity Clear (Clear); Glucose, Urine (Dipstick) Normal (Negative); Leukocyte Negative Leu/uL (Negative); Nitrite Negative (Negative); Protein, Urine (Dipstick) 10 mg/dL (Neg-Trace); Urobilinogen Normal mg/dL (Less than 2)
[2019-04-12 01:09] LABS: ALT (SGPT) 20 U/L (8-55); AST (SGOT) 35 U/L (5-34); Albumin 4.6 g/dL (3.4-4.8); Alkaline Phosphatase 40 U/L (40-150); Anion Gap 16 mmol/L (10-20); BUN (Urea Nitrogen) 30 mg/dL (9.8-20.1); Bilirubin, Total 0.4 mg/dL (0.2-1.2); Calc. Creatinine Clearance 0 mL/min (70-130); Calcium 9.9 mg/dL (7.8-10.44); Carbon Dioxide 24 mmol/L (23-31); Chloride 96 mmol/L (98-107); Estimated GFR-MDRD 44; Globulin 2.4 g/dL (2.4-3.5); Glucose 111 mg/dL (83-110); Potassium 3.9 mmol/L (3.5-5.1); Sodium 132 mmol/L (136-145)
[2019-04-12 01:23] VITALS: BMI 21.1
[2019-04-12] MEDS ORDERED: hydrALAZINE 20 MG/ML VIAL SLOW IVP PRN (01:26)
[2019-04-12] MEDS: HYDROcodone/Acetaminophen 5/325 mg Tablet PO PRN ×2 (04:00→09:11)
[2019-04-12] MEDS ORDERED: Morphine 2 MG/ML SYRINGE SLOW IVP SCH (04:45)
[2019-04-12] MEDS ORDERED: Acetaminophen 500 MG TAB PO PRN (06:40)
[2019-04-12] MEDS ORDERED: diphenhydrAMINE 25 MG CAP PO PRN (06:41)
[2019-04-12] MEDS: Chlorthalidone 25 MG TAB PO SCH (08:20)
[2019-04-12] MEDS: Atenolol 50 MG TAB PO SCH (08:20)
[2019-04-12] MEDS: Fish Oil 1,000 MG CAP PO SCH (08:21)
[2019-04-12] MEDS: Multivitamin W/ Minerals 1 TAB PO SCH (08:21)
[2019-04-12] MEDS: NIFEdipine XL 30 MG TAB PO SCH (08:21)
[2019-04-12] MEDS: Calcium Carbonate 600 MG TAB PO SCH (08:21)
[2019-04-12] MEDS: Allopurinol 300 MG TAB PO SCH (08:21)
[2019-04-12] MEDS: Enoxaparin Sodium 40 MG/0.4 ML SYRINGE SC SCH (08:22)
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
--- NOTE | 2019-04-12 10:53 | ULT ---
RENAL ULTRASOUND: INDICATION: Flank pain. FINDINGS: Small kidneys are demonstrated with the right kidney between 7 and 8 cm in length and the left kidney approximately 9 cm in length. There is mild increased cortical echogenicity of each kidney. There is a focus of altered echotexture at the lateral cortical margin of the mid right kidney, slightly gr eater than 1 cm in length indicative of a small exophytic cyst. There is no overt hydronephrosis of either kidney. The urinary bladder is moderately distended. IMPRESSION: 1. Small bilateral kidneys. There is associated increased echogenicity and, therefore, this may be on the basis of chronic medical renal disease. Correlate clinically. 2. No overt hydronephrosis. 3. Small right renal cyst. POS: TPC
[2019-04-12 11:23] LABS: Bacteria/HPF None Seen HPF (None Seen); Bilirubin Negative (Negative); Blood, Urine Negative (Negative); Clarity Clear (Clear); Glucose, Urine (Dipstick) Normal (Negative); Leukocyte Negative Leu/uL (Negative); Nitrite Negative (Negative); Protein, Urine (Dipstick) 10 mg/dL (Neg-Trace); RBC/HPF None Seen HPF (0-3); Squamous Epithelial 0-3 HPF (0-3); Urobilinogen Normal mg/dL (Less than 2); WBC/HPF 0-3 HPF (0-3)
[2019-04-12 11:27] LABS: Urine Culture Reflex No No
[2019-04-12] MEDS ORDERED: Morphine 4 MG/ML VIAL IV PRN (12:55)
[2019-04-12] MEDS ORDERED: Lidocaine Patch Removal 1 EACH TOP SCH (13:00)
[2019-04-12] MEDS: Acetaminophen 325 MG TAB PO SCH ×3 (13:06→20:06)
[2019-04-12] MEDS: methylPREDNISolone Sod Succ 40 MG VIAL IVP SCH ×2 (13:07→17:34)
[2019-04-12] MEDS: Lidocaine 5% Patch TD SCH (15:16)
[2019-04-12] MEDS: tiZANidine HCl 4 MG TAB PO SCH ×2 (15:18→20:06)
[2019-04-12] MEDS: Atorvastatin Calcium 40 MG TAB PO SCH (20:06)
[2019-04-12] MEDS: Zolpidem Tartrate 5 MG TAB PO PRN (20:07)
[2019-04-12] MEDS: Ubidecarenone 50 MG CAP PO SCH (20:07)
[2019-04-13] MEDS: Lidocaine Patch Removal 1 EACH TOP SCH (02:50)
[2019-04-13] MEDS: HYDROcodone/Acetaminophen 5/325 mg Tablet PO PRN (02:53)
[2019-04-13] MEDS: Acetaminophen 325 MG TAB PO SCH ×5 (05:59→20:11)
[2019-04-13 06:07] LABS: #Lymphocytes 0.9 thou/uL (1.20-3.40); #Monocytes 0.2 thou/uL (0.11-0.59); #Neutrophils 5.9 thou/uL (1.40-6.50); %Eosinophils 0.2 % (0.0-10.0); %Lymphocytes 13.3 % (21.0-51.0); %Monocytes 2.7 % (0.0-10.0); %Neutrophils 83.8 % (42.0-75.0); Hemoglobin 13.9 g/dL (12.0-16.0); Mean Corpuscular HGB CONC 33.4 g/dL (32.0-36.0); Mean Corpuscular Hemoglobin 33.1 pg (27.0-31.0); Mean Corpuscular Volume 99.2 fL (78.0-98.0); Platelet Count 205 thou/uL (130-400); RBC Distribution Width 13.1 % (11.5-14.5); Red Blood Cell (RBC) Count 4.19 mill/uL (4.20-5.40); White Blood Cell (WBC) Count 7.1 thou/uL (4.8-10.8)
[2019-04-13 06:22] LABS: Anion Gap 16 mmol/L (10-20); BUN (Urea Nitrogen) 30 mg/dL (9.8-20.1); Calc. Creatinine Clearance 29 mL/min (70-130); Calcium 10.5 mg/dL (7.8-10.44); Carbon Dioxide 24 mmol/L (23-31); Chloride 92 mmol/L (98-107); Estimated GFR-MDRD 38; Glucose 139 mg/dL (83-110); Potassium 3.3 mmol/L (3.5-5.1); Sodium 129 mmol/L (136-145)
[2019-04-13] MEDS: Fish Oil 1,000 MG CAP PO SCH (08:36)
[2019-04-13] MEDS: Enoxaparin Sodium 40 MG/0.4 ML SYRINGE SC SCH (08:36)
[2019-04-13] MEDS: Allopurinol 300 MG TAB PO SCH (08:36)
[2019-04-13] MEDS: DULoxetine 30 MG CAP PO SCH (08:36)
[2019-04-13] MEDS: tiZANidine HCl 4 MG TAB PO SCH ×3 (08:36→20:12)
[2019-04-13] MEDS: NIFEdipine XL 30 MG TAB PO SCH (08:36)
[2019-04-13] MEDS: Chlorthalidone 25 MG TAB PO SCH (08:36)
[2019-04-13] MEDS: Multivitamin W/ Minerals 1 TAB PO SCH (08:36)
[2019-04-13] MEDS: Atenolol 50 MG TAB PO SCH (08:36)
[2019-04-13] MEDS: Calcium Carbonate 600 MG TAB PO SCH (08:36)
[2019-04-13] MEDS: Lidocaine 5% Patch TD SCH (14:06)
[2019-04-13] MEDS ORDERED: Diazepam 5 MG TAB PO PRN (17:57)
[2019-04-13] MEDS: Atorvastatin Calcium 40 MG TAB PO SCH (20:12)
[2019-04-13] MEDS: Ubidecarenone 50 MG CAP PO SCH (20:14)
[2019-04-13] MEDS: Zolpidem Tartrate 5 MG TAB PO PRN (20:16)
[2019-04-14] MEDS: Lidocaine Patch Removal 1 EACH TOP SCH (02:25)
[2019-04-14] MEDS: Acetaminophen 325 MG TAB PO SCH ×6 (05:26→20:28)
[2019-04-14] MEDS: NIFEdipine XL 30 MG TAB PO SCH (07:31)
[2019-04-14] MEDS: Atenolol 50 MG TAB PO SCH (07:32)
[2019-04-14] MEDS: Allopurinol 300 MG TAB PO SCH (09:00)
[2019-04-14] MEDS: Fish Oil 1,000 MG CAP PO SCH (09:00)
[2019-04-14] MEDS: Multivitamin W/ Minerals 1 TAB PO SCH (09:00)
[2019-04-14] MEDS: DULoxetine 30 MG CAP PO SCH (09:00)
[2019-04-14] MEDS: Calcium Carbonate 600 MG TAB PO SCH (09:00)
[2019-04-14] MEDS: Chlorthalidone 25 MG TAB PO SCH (09:57)
[2019-04-14] MEDS: tiZANidine HCl 4 MG TAB PO SCH ×4 (09:57→20:27)
[2019-04-14] MEDS: HYDROcodone/Acetaminophen 5/325 mg Tablet PO PRN ×2 (09:59→20:28)
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
--- NOTE | 2019-04-14 14:01 | MRI ---
MRI THORACIC SPINE WITHOUT CONTRAST: 04/14/19 HISTORY: Pain. COMPARISON: None. FINDINGS: Appropriate T1 marrow signal intensity of the thoracic vertebrae. Intrinsic T1 and T2 hyperintensity at the T5 vertebral body level, compatible with a vertebral body hemangioma. There is chronic irregu larity involving the inferior end plate of T10. Remaining thoracic vertebra demonstrates preservation of end plates as well as vertebral body height. No acute fractures. No significant STIR hyperintensi ty to suggest vertebral body edema or ligamentous injury. The visualized mediastinum, lung parenchyma and solid organs are grossly unremarkable. Possible small cysts in the liver and cysts in both kidneys. The visualized common bile duct appears to be prominen t measuring 1.2 cm. Incomplete evaluation. Throughout the thoracic spine, the neural foramina are patent. Throughout the thoracic spine, there is no significant posterior disc abnormality. No significant jerry tral canal stenosis. The thoracic cord has a normal size and signal intensity. Conus medullaris terminates at the mid L1 l evel. IMPRESSION: 1. No cord signal abnormality. 2. No significant central canal stenosis or significant neural foraminal narrowing. 3. Bilateral renal cortical cysts as well as hepatic cysts. 4. Dilatation of the common bile duct is suggested. Correlation made with an abdomen CT from 01/08 suggests interval increase in size of the common bile duct. Dedicated right upper quadrant ultras ound is recommended. Code T POS: [facility]
[2019-04-14] MEDS: Lidocaine 5% Patch TD SCH (14:48)
--- NOTE | 2019-04-14 18:53 | ULT ---
RIGHT UPPER QUADRANT ULTRASOUND: 04/14/19 COMPARISON: 10/31/18 HISTORY: Right upper quadrant pain. TECHNIQUE: Utilizing a multihertz transducer, sonographic imaging of the right upper quadrant is performed in th e longitudinal and transverse plane. FINDINGS: The head and proximal pancreatic body have a normal echotexture. Hepatic parenchyma has a normal echotexture. No hepatic masses. Possible mild intrahepatic biliary di latation. Right hepatic lobe measures 13.2 cm. No sonographic evidence of cholelithiasis, gallbladder wall thickening, or pericholecystic fluid. Neg ative Valderrama's sign. Common bile duct diameter is 0.71 cm. Echogenic diminutive kidney with a small 1.5 cm cyst. Limited evaluation of the cortex. No hydronephr osis. Right kidney measures 8.4 x 5.0 x 5.0 cm. IMPRESSION: 1. Common bile duct diameter within normal limits. However, there does appear to be some central intrahepatic biliary dilatation, incompletely evaluated. Further evaluation with abdomen MRI/MRCP ma y be beneficial. Correlation is made with an abdomen MRI performed on 11/01/18 which does comment upon moderate intrahepatic and extrahepatic biliary dilatation. 2. Diminutive right kidney. 3. No sonographic evidence of cholelithiasis or cholecystitis. POS: [facility]
[2019-04-14] MEDS: Ubidecarenone 50 MG CAP PO SCH (20:27)
[2019-04-14] MEDS: Atorvastatin Calcium 40 MG TAB PO SCH (20:27)
[2019-04-14] MEDS: Zolpidem Tartrate 5 MG TAB PO PRN (20:28)
[2019-04-15] MEDS: Lidocaine Patch Removal 1 EACH TOP SCH (01:51)
[2019-04-15] MEDS: Acetaminophen 325 MG TAB PO SCH ×5 (05:16→20:40)
[2019-04-15] MEDS: Allopurinol 300 MG TAB PO SCH (08:32)
[2019-04-15] MEDS: DULoxetine 30 MG CAP PO SCH (08:32)
[2019-04-15] MEDS: tiZANidine HCl 4 MG TAB PO SCH ×3 (08:32→20:40)
[2019-04-15] MEDS: Fish Oil 1,000 MG CAP PO SCH (08:32)
[2019-04-15] MEDS: Calcium Carbonate 600 MG TAB PO SCH (08:33)
[2019-04-15] MEDS: Multivitamin W/ Minerals 1 TAB PO SCH (08:33)
[2019-04-15] MEDS: NIFEdipine XL 30 MG TAB PO SCH (08:33)
[2019-04-15] MEDS: Chlorthalidone 25 MG TAB PO SCH (08:34)
[2019-04-15] MEDS: Atenolol 50 MG TAB PO SCH (08:34)
[2019-04-15] MEDS: Docusate 100 MG CAP PO SCH ×2 (08:44→20:39)
[2019-04-15] MEDS ORDERED: Enoxaparin Sodium 40 MG/0.4 ML SYRINGE SC SCH (09:00)
[2019-04-15] MEDS ORDERED: Lorazepam 2 MG/ML VIAL SLOW IVP PRN (10:17)
[2019-04-15] MEDS: Lidocaine 5% Patch TD SCH (14:00)
--- NOTE | 2019-04-15 16:22 | NM ---
EXAM: NUCLEAR MEDICINE HIDA SCAN: 04/15/19 HISTORY: Dilatation of the intra and extrahepatic biliary system. COMPARISON: None. TECHNIQUE: Patient was administered 4.7 millicuries of technetium 99m Mebrofenin intravenously. Gallbladder ejec tion fraction was determined after the patient was administered 8 oz of Ensure post injection of radi opharmaceutical. FINDINGS: There is appropriate uptake of the radiotracer by the hepatic parenchyma. There is excretion of the r adiotracer into the intrahepatic biliary system. Passage of radiotracer from the common bile duct int o small bowel loops. There is localization of the radiotracer in the gallbladder. Gallbladder ejection fraction is 72%. IMPRESSION: 1. No scintigraphic evidence of acute cholecystitis. 2. 72% gallbladder ejection fraction. 3. Passage of radiotracer from the common bile into the small bowel loops. POS: [facility]
--- NOTE | 2019-04-15 16:32 | MRI ---
MRI Abdomen WO Con History: Abdominal pain. Comparison: Nuclear medicine HIDA scan same day. Ultrasound gallbladder prior day. Findings: MRI abdomen was performed without intravenous contrast. 3-D rendering provided. Few scattered small cysts of the liver. No intrahepatic or extra hepatic dilatation. Pancreatic duct size is normal. There is a T2 hyperintense cystic mass of the pancreatic tail measuring 8 mm. No cholelithiasis or cholecystitis. Possible cysts of both kidneys No hydronephrosis. No dilated loops of bowel in the abdomen. Adrenal glands are unremarkable. No significant hepatic steatosis. Mild reverse S-shaped scoliosis lumbar spine. Impression: 1. Normal appearance of the biliary system. No acute inflammatory process within the abdomen and pelv is. 2. 8 mm cystic mass pancreatic tail with pancreatic ductal extension. Per ACR white paper, pancreatic protocol MRI in 2 years recommended.
[2019-04-15] MEDS: Ubidecarenone 50 MG CAP PO SCH (20:40)
[2019-04-15] MEDS: Zolpidem Tartrate 5 MG TAB PO PRN (20:40)
[2019-04-15] MEDS: Atorvastatin Calcium 40 MG TAB PO SCH (20:40)
[2019-04-16] MEDS: Lidocaine Patch Removal 1 EACH TOP SCH ×2 (01:58→09:35)
[2019-04-16] MEDS: Acetaminophen 325 MG TAB PO SCH ×2 (05:35→08:05)
[2019-04-16] MEDS: DULoxetine 30 MG CAP PO SCH (08:03)
[2019-04-16] MEDS: NIFEdipine XL 30 MG TAB PO SCH (08:03)
[2019-04-16] MEDS: Fish Oil 1,000 MG CAP PO SCH (08:03)
[2019-04-16] MEDS: tiZANidine HCl 4 MG TAB PO SCH (08:04)
[2019-04-16] MEDS: Allopurinol 300 MG TAB PO SCH (08:04)
[2019-04-16] MEDS: Docusate 100 MG CAP PO SCH (08:04)
[2019-04-16] MEDS: Multivitamin W/ Minerals 1 TAB PO SCH ×2 (08:04→08:16)
[2019-04-16] MEDS: Atenolol 50 MG TAB PO SCH (08:04)
[2019-04-16] MEDS: Chlorthalidone 25 MG TAB PO SCH (08:04)
[2019-04-16] MEDS: Calcium Carbonate 600 MG TAB PO SCH (08:04)
[2019-04-16] MEDS ORDERED: Enoxaparin Sodium 30 MG/0.3 ML SYRINGE SC SCH (09:00)
[2019-04-16 09:52] VITALS: BP 98/60; TEMP 98
== END 2019-04-16 10:21 | disposition home or self-care (01) ==
LOC: ERS 21:14 → T4-B 04-12 00:38
PROVIDERS: ADMIT Specialist; ATTEND Specialist
DX: M48.061 Spinal stenosis, lumbar region without neurogenic claudication (principal); M47.816 Spondylosis without myelopathy or radiculopathy, lumbar region; M51.36 Other intervertebral disc degeneration, lumbar region; M54.12 Radiculopathy, cervical region; G89.29 Other chronic pain; M54.9 Dorsalgia, unspecified; I10 Essential (primary) hypertension; E78.5 Hyperlipidemia, unspecified; M10.9 Gout, unspecified; K21.9 Gastro-esophageal reflux disease without esophagitis; F41.9 Anxiety disorder, unspecified; Q61.01 Congenital single renal cyst; G47.00 Insomnia, unspecified; M85.80 Other specified disorders of bone density and structure, unspecified site; Z87.891 Personal history of nicotine dependence; Z79.899 Other long term (current) drug therapy; Z88.2 Allergy status to sulfonamides; Z88.7 Allergy status to serum and vaccine; Z88.8 Allergy status to other drugs, medicaments and biological substances
CPT/HCPCS: 72131; 72146; 74181; 76705; 76770; 78227; 80048; 80053; 81001; 81003; 82962; 85025 ×2; 96372 ×5; 96374; 96375 ×2; 96376; 99285; A9537; G0378 ×6; 36415; 36416; J0360; J1650; J1885; J2060; J2270; J2920

== ENCOUNTER 2019-09-09 09:49 | Outpatient (CLI) | payer MEDICARE, BC ==
--- NOTE | 2019-09-16 13:24 | MMO ---
Bilateral MAMMO Bilat Screen [facility]. CLINICAL HISTORY: Patient is 79 years old and is seen for screening. The patient has no family history of breast cancer. The patient has a history of malignant (generic) in the right breast 2000. The patient has a history of right needle biopsy in 1998 - benign, left needle biopsy in 1999 - benign and right Excisional Biopsy in 2000 - malignant. VIEWS: The views performed were: bilateral craniocaudal with tomosynthesis and bilateral mediolateral oblique with tomosynthesis. FILMS COMPARED: The present examination has been compared to a prior imaging study performed at [facility] on 09/08/2018. This study has been interpreted with the assistance of computer-aided detection. MAMMOGRAM FINDINGS: There are scattered fibroglandular densities. Finding 1: There are stable post operative changes seen in the right breast. Finding 2: There are stable benign appearing calcifications seen in both breasts. There are also vascular calcifications. There are no suspicious masses, suspicious calcifications, or new areas of architectural distortion. IMPRESSION: THERE IS NO MAMMOGRAPHIC EVIDENCE OF MALIGNANCY. A ROUTINE FOLLOW-UP MAMMOGRAM IN 1 YEAR IS RECOMMENDED. THE RESULTS OF THIS EXAM WERE SENT TO THE PATIENT. ACR BI-RADS Category 2 - Benign finding MAMMOGRAPHY NOTE: 1. A negative mammogram report should not delay a biopsy if a dominant of clinically suspicious mass is present. 2. Approximately 10% to 15% of breast cancers are not detected by mammography. 3. Adenosis and dense breasts may obscure an underlying neoplasm. Reported by: JUDE LOWE MD Electonically Signed: [id number]
== END 2019-09-09 09:50 | disposition home or self-care (01) ==
LOC: BICMAMMO 09:49
PROVIDERS: ATTEND Specialist
DX: Z12.31 Encounter for screening mammogram for malignant neoplasm of breast (principal); Z85.3 Personal history of malignant neoplasm of breast; Z91.89 Other specified personal risk factors, not elsewhere classified
CPT/HCPCS: 77063; 77067

== ENCOUNTER 2020-08-18 13:52 | Outpatient (CLI) | payer MEDICARE, BC ==
--- NOTE | 2020-08-18 15:04 | ULT ---
RENAL ULTRASOUND: 08/18/20 INDICATION: History of cystitis and hematuria. COMPARISON: Prior MR of the abdomen without contrast dated 04/15/2019 from [facility]. FINDINGS: The right kidney measures 7.9 x 3.3 x 4 cm. There is a 1.4 cm cyst involving the superior pole of the right kidney. There is a 1.7 cm cyst involving the inferior pole of the right kidney. The left kidney measures 9.5 x 5.5 x 5.1 cm. No focal renal lesion or hydronephrosis is evident. Prevoid bladder volume was 39.91 mL. IMPRESSION: 1. Right renal cysts. 2. No hydronephrosis. POS: [facility]
== END 2020-08-18 13:53 | disposition home or self-care (01) ==
LOC: BICULT 13:52
PROVIDERS: ATTEND Specialist
DX: N30.80 Other cystitis without hematuria (principal); N28.1 Cyst of kidney, acquired
CPT/HCPCS: 76770

== ENCOUNTER 2020-10-10 09:30 | Outpatient (CLI) | payer MEDICARE, BC | END 2020-10-10 09:31 | disposition home or self-care (01) | LOC: ULT 09:30 | PROVIDERS: ATTEND Internal Medicine Gastroenterology | DX: R10.9 Unspecified abdominal pain (principal); R11.2 Nausea with vomiting, unspecified; N28.1 Cyst of kidney, acquired | CPT/HCPCS: 93975 ==

== ENCOUNTER 2021-01-04 10:53 | Outpatient (CLI) | payer MEDICARE, BC | END 2021-01-04 10:54 | disposition home or self-care (01) | LOC: BICMAMMO 10:53 | PROVIDERS: ATTEND Specialist | DX: Z12.31 Encounter for screening mammogram for malignant neoplasm of breast (principal); Z85.3 Personal history of malignant neoplasm of breast; Z91.89 Other specified personal risk factors, not elsewhere classified | CPT/HCPCS: 77063; 77067 ==

== ENCOUNTER 2022-01-07 09:24 | Outpatient (CLI) | payer MEDICARE, BC | END 2022-01-07 09:25 | disposition home or self-care (01) | LOC: BICMAMMO 09:24 | PROVIDERS: ATTEND Specialist | DX: Z12.31 Encounter for screening mammogram for malignant neoplasm of breast (principal); Z85.3 Personal history of malignant neoplasm of breast | CPT/HCPCS: 77063; 77067 ==

== ENCOUNTER 2022-01-14 15:06 | Outpatient (CLI) | payer MEDICARE, BC | END 2022-01-14 15:07 | disposition home or self-care (01) | LOC: BICMRI 15:06 | PROVIDERS: ATTEND Anesthesiology Pain Medicine | DX: S22.071A Stable burst fracture of T9-T10 vertebra, initial encounter for closed fracture (principal); R60.0 Localized edema | CPT/HCPCS: 72146 ==

== ENCOUNTER 2022-01-18 10:43 | Emergency (ER) | payer MEDICARE, BC ==
[2022-01-18] MEDS ORDERED: Fentanyl 100 MCG/2 ML VIAL ONE (12:23)
[2022-01-18 12:31] LABS: #Eosinphils 0.1 thou/uL (0.0-0.7); #Lymphocytes 1.1 thou/uL (1.20-3.40); #Neutrophils 9.3 thou/uL (1.40-6.50); %Basophils 0.1 % (0.0-1.0); %Eosinophils 0.6 % (0.0-10.0); %Lymphocytes 9.9 % (21.0-51.0); %Monocytes 8.9 % (0.0-10.0); %Neutrophils 80.5 % (42.0-75.0); Hemoglobin 12.8 g/dL (12.0-16.0); Mean Corpuscular HGB CONC 31.5 g/dL (32.0-36.0); Mean Corpuscular Hemoglobin 32.2 pg (27.0-31.0); Platelet Count 186 thou/uL (130-400); Red Blood Cell (RBC) Count 3.97 mill/uL (4.20-5.40); White Blood Cell (WBC) Count 11.5 thou/uL (4.8-10.8)
[2022-01-18 13:08] LABS: Bacteria/HPF 4+ HPF (None Seen); Bilirubin Negative (Negative); Blood, Urine Negative (Negative); Clarity Clear (Clear); Glucose, Urine (Dipstick) Normal (Negative); Ketone, Urine Negative (Negative); Leukocyte 250 Leu/uL (Negative); Nitrite Negative (Negative); Protein, Urine (Dipstick) 50 mg/dL (Neg-Trace); RBC/HPF 0-3 HPF (0-3); Specific Gravity, Urine 1.006 (1.002-1.036); Squamous Epithelial 0-3 HPF (0-3); Urobilinogen Normal mg/dL (Less than 2); pH, Urine 5.5 (5.0-9.0)
[2022-01-18 13:10] LABS: ALT (SGPT) 22 U/L (8-55); AST (SGOT) 33 U/L (5-34); Albumin 3.8 g/dL (3.4-4.8); Alkaline Phosphatase 48 U/L (40-110); Anion Gap 14 mmol/L (10-20); BUN (Urea Nitrogen) 24 mg/dL (9.8-20.1); Bilirubin, Total 0.3 mg/dL (0.2-1.2); Calc. Creatinine Clearance 0 mL/min (70-130); Calcium 8.9 mg/dL (7.8-10.44); Carbon Dioxide 22 mmol/L (23-31); Chloride 105 mmol/L (98-107); Globulin 2.8 g/dL (2.4-3.5); Glucose 143 mg/dL (83-110); Potassium 3.6 mmol/L (3.5-5.1); Protein, Total 6.6 g/dL (5.8-8.1); Sodium 137 mmol/L (136-145)
== END 2022-01-18 16:13 ==
LOC: ERS 10:43
DX: S32.009A Unspecified fracture of unspecified lumbar vertebra, initial encounter for closed fracture (principal); I10 Essential (primary) hypertension; E11.9 Type 2 diabetes mellitus without complications; E78.2 Mixed hyperlipidemia; W19.XXXA Unspecified fall, initial encounter; Z87.19 Personal history of other diseases of the digestive system; Z60.9 Problem related to social environment, unspecified; Z87.891 Personal history of nicotine dependence; Z79.899 Other long term (current) drug therapy
CPT/HCPCS: 36415; 80053; 81003; 81015; 85025; 87077; 87086; 87186; 96374; J3010

== ENCOUNTER 2022-04-08 15:54 | Inpatient (IN) | payer MEDICARE, BC ==
[~2022-04-08 15:54] MED LIST changes: +Heparin 1,000 UNITS/ML VIAL ONE; -ISOVUE-370 76%-LOCM 1 ML ONE
[2022-04-08] MEDS ORDERED: Acetaminophen 500 MG TAB ONE (16:45)
[2022-04-08 16:48] LABS: Hemoglobin 11.8 g/dL (12.0-16.0); Mean Corpuscular HGB CONC 33.1 g/dL (32.0-36.0); Mean Corpuscular Hemoglobin 32.6 pg (27.0-31.0); Mean Corpuscular Volume 98.4 fL (78.0-98.0); Mean Platelet Volume 9.3 fL (7.4-10.4); Platelet Count 146 thou/uL (130-400); RBC Distribution Width 12.1 % (11.5-14.5); Red Blood Cell (RBC) Count 3.62 mill/uL (4.20-5.40); White Blood Cell (WBC) Count 8.8 thou/uL (4.8-10.8)
[2022-04-08 17:02] LABS: Band 28 % (5-11); Lymphocytes 9 % (21-51); MDiff Complete? YES; Metamyelocyte 3 % (0-0); Monocytes 1 % (0-10); Neutrophil 58 % (42-75); Platelet Morphology Comment Appears Adequate; Polychromasia SLIGHT = 2-3 cells (100X) (0-2/hpf); Reactive Lymphocytes 1 % (0-10); Vacuoles SLIGHT
[2022-04-08 17:25] LABS: ALT (SGPT) 14 U/L (8-55); AST (SGOT) 31 U/L (5-34); Alkaline Phosphatase 52 U/L (40-110); Anion Gap 17 mmol/L (10-20); BUN (Urea Nitrogen) 24 mg/dL (9.8-20.1); Bilirubin, Total 0.8 mg/dL (0.2-1.2); Calc. Creatinine Clearance 0 mL/min (70-130); Calcium 9.3 mg/dL (7.8-10.44); Carbon Dioxide 22 mmol/L (23-31); Chloride 96 mmol/L (98-107); Estimated GFR 26; Globulin 3.1 g/dL (2.4-3.5); Glucose 98 mg/dL (83-110); Potassium 4.5 mmol/L (3.5-5.1); Protein, Total 7.1 g/dL (5.8-8.1); Sodium 130 mmol/L (136-145)
[2022-04-08 17:45] LABS: CKMB 1.4 ng/mL (0-6.6)
[2022-04-08] MEDS ORDERED: Enoxaparin Sodium 60 MG/0.6 ML SYRINGE ONE (17:55)
[2022-04-08] MEDS ORDERED: Clopidogrel Bisulfate 300 MG TAB ONE (17:55)
[2022-04-08 18:07] LABS: SARS-CoV-2 NAA Rapid Test Not Detected (NotDetected)
[2022-04-08 19:49] LABS: Bacteria/HPF 4+ HPF (None Seen); Bilirubin Negative (Negative); Blood, Urine 1+ (Negative); Clarity Turbid (Clear); Glucose, Urine (Dipstick) Normal (Negative); Ketone, Urine Negative (Negative); Leukocyte 250 Leu/uL (Negative); Nitrite Negative (Negative); Protein, Urine (Dipstick) 200 mg/dL (Neg-Trace); RBC/HPF 0-3 HPF (0-3); Specific Gravity, Urine 1.011 (1.002-1.036); Squamous Epithelial 0-3 HPF (0-3); Urobilinogen Normal mg/dL (Less than 2); WBC/HPF 21-50 HPF (0-3)
[2022-04-08 20:36] LABS: Troponin I 3.169 ng/mL (< 0.028)
[2022-04-08] MEDS ORDERED: Zolpidem Tartrate 5 MG TAB PO SCH (21:45)
[2022-04-08] MEDS ORDERED: Acetaminophen 325 MG/10.15 ML UDCUP PO PRN (21:53)
[2022-04-08] MEDS ORDERED: Sodium Chloride 0.9% 1,000 ML IV SCH (22:00)
[2022-04-08] MEDS: cefTRIAXone\\ROCEPHIN 1 GM in Sodium Chloride 0.9% 100 ML IVPB SCH (23:44)
[2022-04-09 00:19] LABS: Critical Call Chem Troponin I RESULT DECREASING
[2022-04-09] MEDS ORDERED: Labetalol HCl 100 MG/20 ML VIAL ONE ×2 (03:12→03:22)
[2022-04-09 05:17] LABS: #Eosinphils 0.2 thou/uL (0.0-0.7); #Lymphocytes 1.6 thou/uL (1.20-3.40); #Monocytes 0.2 thou/uL (0.11-0.59); #Neutrophils 14.2 thou/uL (1.40-6.50); %Basophils 0.1 % (0.0-1.0); %Lymphocytes 9.6 % (21.0-51.0); %Monocytes 1.5 % (0.0-10.0); %Neutrophils 87.8 % (42.0-75.0); Mean Corpuscular HGB CONC 32.7 g/dL (32.0-36.0); Mean Corpuscular Hemoglobin 33.4 pg (27.0-31.0); Platelet Count 170 thou/uL (130-400); RBC Distribution Width 12.8 % (11.5-14.5); Red Blood Cell (RBC) Count 3.59 mill/uL (4.20-5.40); White Blood Cell (WBC) Count 16.1 thou/uL (4.8-10.8)
[2022-04-09 05:29] LABS: Anion Gap 23 mmol/L (10-20); BUN (Urea Nitrogen) 23 mg/dL (9.8-20.1); Calc. Creatinine Clearance 19 mL/min (70-130); Calcium 9.2 mg/dL (7.8-10.44); Carbon Dioxide 16 mmol/L (23-31); Chloride 99 mmol/L (98-107); Estimated GFR 26; Glucose 148 mg/dL (83-110); Potassium 4.6 mmol/L (3.5-5.1); Sodium 133 mmol/L (136-145)
[2022-04-09] MEDS: Sodium Chloride 0.9% 1,000 ML IV SCH ×3 (05:49→20:59)
[2022-04-09 06:40] LABS: Hemoglobin A1c 5.2 % (4.0-6.0)
[2022-04-09 06:44] LABS: Cardiac Risk 1.4 (Less than 4.5)
[2022-04-09] MEDS: Gabapentin 100 MG CAP PO SCH ×2 (08:41→20:44)
[2022-04-09] MEDS: Empagliflozin 10 MG TAB PO SCH (08:42)
[2022-04-09] MEDS: Atenolol 50 MG TAB PO SCH ×2 (08:43→20:43)
[2022-04-09] MEDS: Clopidogrel Bisulfate 75 MG TAB PO SCH (08:43)
[2022-04-09] MEDS: ALPRAZolam 1 MG TAB PO SCH (08:43)
[2022-04-09] MEDS: Aspirin 325 MG TAB PO SCH (08:44)
[2022-04-09] MEDS: Febuxostat 40 MG TAB PO SCH (09:14)
[2022-04-09] MEDS ORDERED: Iopamidol-370 76% 500 ML 1 ML ONE (12:47)
[2022-04-09] MEDS: Acetaminophen 325 MG TAB PO PRN (16:32)
[2022-04-09] MEDS ORDERED: ALENDRONATE 70 MG PO SCH (18:15)
[2022-04-09] MEDS: Ondansetron PF 4 MG/2 ML Vial IVP PRN (18:31)
[2022-04-09] MEDS ORDERED: Meropenem 1 GM in Sodium Chloride 0.9% 100 ML IVPB SCH ×2 (20:00→22:00)
[2022-04-09] MEDS: Melatonin 3 MG TAB PO SCH (20:43)
[2022-04-09] MEDS: Rosuvastatin 10 MG TAB PO SCH (20:44)
[2022-04-09] MEDS: Zolpidem Tartrate 5 MG TAB PO SCH (20:45)
[2022-04-09] MEDS: Enoxaparin Sodium 60 MG/0.6 ML SYRINGE SC SCH (20:46)
[2022-04-09] MEDS: cefTRIAXone\\ROCEPHIN 1 GM in Sodium Chloride 0.9% 100 ML IVPB SCH (20:47)
[2022-04-09] MEDS: Meropenem 500 MG in Sodium Chloride 0.9% 100 ML IVPB SCH (22:57)
[2022-04-10] MEDS: Acetaminophen 325 MG TAB PO PRN ×3 (03:48→21:50)
[2022-04-10 05:08] LABS: Anion Gap 16 mmol/L (10-20); BUN (Urea Nitrogen) 25 mg/dL (9.8-20.1); Calc. Creatinine Clearance 20 mL/min (70-130); Calcium 7.8 mg/dL (7.8-10.44); Carbon Dioxide 16 mmol/L (23-31); Chloride 103 mmol/L (98-107); Estimated GFR 28; Glucose 121 mg/dL (83-110); Potassium 4.4 mmol/L (3.5-5.1); Sodium 131 mmol/L (136-145)
[2022-04-10 05:14] LABS: Band 12 % (5-11); Hemoglobin 10.5 g/dL (12.0-16.0); Hypochromia SLIGHT = 6-15 cells (100X) (0-5/hpf); Lymphocytes 7 % (21-51); MDiff Complete? YES; Macrocytosis SLIGHT = 6-15 cells (100X) (0-5/hpf); Mean Corpuscular HGB CONC 32.1 g/dL (32.0-36.0); Mean Platelet Volume 10.7 fL (7.4-10.4); Monocytes 2 % (0-10); Neutrophil 79 % (42-75); Platelet Count 102 thou/uL (130-400); Platelet Morphology Comment Appears Decreased; RBC Distribution Width 12.4 % (11.5-14.5); Red Blood Cell (RBC) Count 3.17 mill/uL (4.20-5.40); White Blood Cell (WBC) Count 17.6 thou/uL (4.8-10.8)
[2022-04-10] MEDS: Meropenem 500 MG in Sodium Chloride 0.9% 100 ML IVPB SCH (05:46)
[2022-04-10] MEDS: Sodium Chloride 0.9% 1,000 ML IV SCH ×2 (05:51→16:35)
[2022-04-10] MEDS: Atenolol 50 MG TAB PO SCH ×2 (08:52→21:50)
[2022-04-10] MEDS: Empagliflozin 10 MG TAB PO SCH (08:52)
[2022-04-10] MEDS: ALPRAZolam 1 MG TAB PO SCH ×3 (08:52→21:52)
[2022-04-10] MEDS: Aspirin 325 MG TAB PO SCH (08:52)
[2022-04-10] MEDS: Clopidogrel Bisulfate 75 MG TAB PO SCH (08:52)
[2022-04-10] MEDS: Febuxostat 40 MG TAB PO SCH (08:52)
[2022-04-10] MEDS: Ondansetron PF 4 MG/2 ML Vial IVP PRN (08:53)
[2022-04-10] MEDS: Gabapentin 100 MG CAP PO SCH ×2 (08:53→21:50)
[2022-04-10] MEDS ORDERED: Cyclobenzaprine 10 MG TAB PO PRN (11:51)
[2022-04-10] MEDS ORDERED: Meropenem 1,000 MG in Sodium Chloride 0.9% 100 ML IVPB SCH (13:36)
[2022-04-10] MEDS: Meropenem 1 GM in Sodium Chloride 0.9% 100 ML IVPB SCH (16:40)
[2022-04-10] MEDS ORDERED: Acetaminophen 325 MG/10.15 ML UDCUP PO PRN (17:22)
[2022-04-10] MEDS: Acetaminophen/Codeine 30-300mg Tablet PO SCH ×2 (17:29→21:51)
[2022-04-10] MEDS: Melatonin 3 MG TAB PO SCH (21:50)
[2022-04-10] MEDS: Rosuvastatin 10 MG TAB PO SCH (21:50)
[2022-04-10] MEDS: Enoxaparin Sodium 60 MG/0.6 ML SYRINGE SC SCH (21:52)
[2022-04-10] MEDS: Zolpidem Tartrate 5 MG TAB PO SCH (21:52)
[2022-04-11] MEDS: Acetaminophen/Codeine 30-300mg Tablet PO SCH ×6 (01:28→21:00)
[2022-04-11 04:45] LABS: #Eosinphils 0.1 thou/uL (0.0-0.7); #Monocytes 0.7 thou/uL (0.11-0.59); #Neutrophils 11.2 thou/uL (1.40-6.50); %Basophils 0.1 % (0.0-1.0); %Lymphocytes 7.7 % (21.0-51.0); %Monocytes 5.6 % (0.0-10.0); %Neutrophils 85.7 % (42.0-75.0); Hemoglobin 9.6 g/dL (12.0-16.0); Mean Corpuscular HGB CONC 31.4 g/dL (32.0-36.0); Mean Corpuscular Hemoglobin 32.3 pg (27.0-31.0); Mean Platelet Volume 10.2 fL (7.4-10.4); Platelet Count 118 thou/uL (130-400); RBC Distribution Width 12.7 % (11.5-14.5); Red Blood Cell (RBC) Count 2.96 mill/uL (4.20-5.40); White Blood Cell (WBC) Count 13.1 thou/uL (4.8-10.8)
[2022-04-11] MEDS: Meropenem 1 GM in Sodium Chloride 0.9% 100 ML IVPB SCH (04:53)
[2022-04-11] MEDS: Sodium Chloride 0.9% 1,000 ML IV SCH ×3 (04:54→21:29)
[2022-04-11 05:05] LABS: Anion Gap 15 mmol/L (10-20); BUN (Urea Nitrogen) 26 mg/dL (9.8-20.1); Calc. Creatinine Clearance 17 mL/min (70-130); Calcium 7.4 mg/dL (7.8-10.44); Carbon Dioxide 16 mmol/L (23-31); Chloride 105 mmol/L (98-107); Estimated GFR 23; Glucose 117 mg/dL (83-110); Sodium 132 mmol/L (136-145)
[2022-04-11] MEDS: Clopidogrel Bisulfate 75 MG TAB PO SCH (09:09)
[2022-04-11] MEDS: Aspirin 325 MG TAB PO SCH (09:09)
[2022-04-11] MEDS: ALPRAZolam 1 MG TAB PO SCH ×4 (09:10→21:34)
[2022-04-11] MEDS: Empagliflozin 10 MG TAB PO SCH (09:10)
[2022-04-11] MEDS: Febuxostat 40 MG TAB PO SCH (09:10)
[2022-04-11] MEDS: Atenolol 50 MG TAB PO SCH (09:11)
[2022-04-11] MEDS: Gabapentin 100 MG CAP PO SCH ×2 (09:11→21:33)
[2022-04-11] MEDS: Meropenem 500 MG in Sodium Chloride 0.9% 100 ML IVPB SCH (15:38)
[2022-04-11] MEDS: Melatonin 3 MG TAB PO SCH (21:00)
[2022-04-11] MEDS: Zolpidem Tartrate 5 MG TAB PO SCH (21:31)
[2022-04-11] MEDS: Rosuvastatin 10 MG TAB PO SCH (21:32)
[2022-04-11] MEDS: Enoxaparin Sodium 60 MG/0.6 ML SYRINGE SC SCH ×2 (21:33→23:44)
[2022-04-12] MEDS: Acetaminophen/Codeine 30-300mg Tablet PO SCH ×6 (01:00→22:00)
[2022-04-12] MEDS: Meropenem 500 MG in Sodium Chloride 0.9% 100 ML IVPB SCH ×2 (05:00→13:55)
[2022-04-12] MEDS: Sodium Chloride 0.9% 1,000 ML IV SCH (05:22)
[2022-04-12 06:48] LABS: Anion Gap 17 mmol/L (10-20); BUN (Urea Nitrogen) 27 mg/dL (9.8-20.1); Calc. Creatinine Clearance 19 mL/min (70-130); Calcium 8.2 mg/dL (7.8-10.44); Carbon Dioxide 13 mmol/L (23-31); Chloride 108 mmol/L (98-107); Estimated GFR 26; Glucose 82 mg/dL (83-110); Potassium 4.2 mmol/L (3.5-5.1); Sodium 134 mmol/L (136-145)
[2022-04-12 07:25] LABS: Hemoglobin 10.2 g/dL (12.0-16.0); Mean Corpuscular HGB CONC 30.7 g/dL (32.0-36.0); Mean Platelet Volume 10.8 fL (7.4-10.4); Platelet Count 132 thou/uL (130-400); Red Blood Cell (RBC) Count 3.19 mill/uL (4.20-5.40); White Blood Cell (WBC) Count 11.7 thou/uL (4.8-10.8)
[2022-04-12] MEDS ORDERED: Lorazepam (BATCHED) 2 MG/ML SYR SLOW IVP STA (08:17)
[2022-04-12] MEDS ORDERED: Midazolam HCl 2 mg/2 ml Vial SLOW IVP PRN (08:31)
[2022-04-12] MEDS ORDERED: Midazolam HCl 2 mg/2 ml Vial SLOW IVP SCH (08:45)
[2022-04-12] MEDS ORDERED: Meropenem 1 GM in Sodium Chloride 0.9% 100 ML IVPB SCH (10:00)
[2022-04-12] MEDS: ALPRAZolam 1 MG TAB PO SCH ×5 (10:28→22:00)
[2022-04-12] MEDS: Lorazepam 0.5 MG TAB PO SCH ×3 (10:28→23:17)
[2022-04-12] MEDS: Thiamine HCl 200 MG/2 ML VIAL IM SCH (10:29)
[2022-04-12] MEDS: Gabapentin 100 MG CAP PO SCH ×2 (10:30→23:16)
[2022-04-12] MEDS: Aspirin 325 MG TAB PO SCH (10:30)
[2022-04-12] MEDS: Clopidogrel Bisulfate 75 MG TAB PO SCH (10:30)
[2022-04-12] MEDS: Multivit, Therapeutic 1 TAB PO SCH (10:31)
[2022-04-12] MEDS: Febuxostat 40 MG TAB PO SCH (10:31)
[2022-04-12] MEDS: Folic Acid 1 MG TAB PO SCH (10:31)
[2022-04-12 10:52] LABS: Band 19 % (5-11); Lymphocytes 5 % (21-51); MDiff Complete? YES; Monocytes 8 % (0-10); Neutrophil 68 % (42-75); Platelet Morphology Comment Appears Adequate; RBC Morphology Normal
[2022-04-12] MEDS: Sodium Bicarbonate 150 MEQ in Dextrose 5% in Water 1,000 ML IV SCH (11:52)
[2022-04-12 15:11] LABS: Anion Gap 19 mmol/L (10-20); BUN (Urea Nitrogen) 26 mg/dL (9.8-20.1); Calc. Creatinine Clearance 18 mL/min (70-130); Calcium 8.1 mg/dL (7.8-10.44); Carbon Dioxide 10 mmol/L (23-31); Chloride 107 mmol/L (98-107); Estimated GFR 24; Glucose 84 mg/dL (83-110); Potassium 4.3 mmol/L (3.5-5.1); Sodium 132 mmol/L (136-145)
[2022-04-12] MEDS: Zolpidem Tartrate 5 MG TAB PO SCH (22:11)
[2022-04-12] MEDS: Melatonin 3 MG TAB PO SCH (23:16)
[2022-04-12] MEDS: Rosuvastatin 10 MG TAB PO SCH (23:19)
[2022-04-13] MEDS: Acetaminophen/Codeine 30-300mg Tablet PO SCH ×4 (01:17→13:49)
[2022-04-13] MEDS: Sodium Bicarbonate 150 MEQ in Dextrose 5% in Water 1,000 ML IV SCH ×4 (02:17→17:37)
[2022-04-13] MEDS ORDERED: Diazepam 5 MG TAB PO SCH (07:15)
[2022-04-13] MEDS ORDERED: Lorazepam (BATCHED) 2 MG/ML SYR SLOW IVP PRN ×2 (11:04→16:58)
[2022-04-13 11:08] LABS: Actual Bicarbonate (HCO3a) 23.2 mEq/L (22-28); Base Excess (BEa) -2.2 mEq/L (-2.0 to +3.0); CO2 Tension 42.5 mmHg (35.0-45.0); Calcium, Ionized (arterial) 1.09 mmol/L (1.12-1.30); Carboxyhemoglobin (COHb) 0.1 gm% (0.0-3.0); Hemoglobin (Hb) 10.6 g/dL (12.0-16.0); O2 Tension (PaO2), arterial 92.2 mmHg (> 60.0); Potassium - ABG Lab 3.51 mmol/L (3.70-5.30); Puncture Site LBA; pH, Arterial 7.36 (7.35-7.45)
[2022-04-13] MEDS: Aspirin 325 MG TAB PO SCH (11:30)
[2022-04-13] MEDS: Diazepam 5 MG TAB PO SCH ×2 (11:30→14:09)
[2022-04-13] MEDS: Clopidogrel Bisulfate 75 MG TAB PO SCH (11:30)
[2022-04-13] MEDS: Gabapentin 100 MG CAP PO SCH (11:34)
[2022-04-13] MEDS: Febuxostat 40 MG TAB PO SCH (11:34)
[2022-04-13] MEDS: Folic Acid 1 MG TAB PO SCH (11:34)
[2022-04-13] MEDS: Multivit, Therapeutic 1 TAB PO SCH (11:34)
[2022-04-13] MEDS: SODIUM BICARBONATE IV SCH (11:35)
[2022-04-13] MEDS: MULTIVITAMINS IV SCH (11:35)
[2022-04-13] MEDS: DEXTROSE IV SCH (11:35)
[2022-04-13] MEDS: WATER IV SCH (11:35)
[2022-04-13 12:18] LABS: Anion Gap 20 mmol/L (10-20); BUN (Urea Nitrogen) 21 mg/dL (9.8-20.1); Calc. Creatinine Clearance 19 mL/min (70-130); Calcium 8.3 mg/dL (7.8-10.44); Carbon Dioxide 17 mmol/L (23-31); Chloride 104 mmol/L (98-107); Estimated GFR 26; Glucose 154 mg/dL (83-110); Potassium 3.8 mmol/L (3.5-5.1); Sodium 137 mmol/L (136-145)
[2022-04-13] MEDS: Thiamine HCl 200 MG/2 ML VIAL IM SCH (12:28)
[2022-04-13] MEDS: Meropenem 500 MG in Sodium Chloride 0.9% 100 ML IVPB SCH ×2 (14:01→14:09)
[2022-04-13] MEDS ORDERED: Diazepam 2 MG TAB PO SCH (16:30)
[2022-04-13] MEDS ORDERED: Lorazepam 0.5 MG TAB PO SCH (17:00)
[2022-04-13] MEDS ORDERED: Midazolam HCl 2 mg/2 ml Vial SLOW IVP PRN (17:40)
[2022-04-13] MEDS ORDERED: Acetaminophen 650 MG Suppository PR PRN (20:12)
[2022-04-13] MEDS: hydrALAZINE 20 MG/ML VIAL SLOW IVP PRN (20:37)
[2022-04-13] MEDS: Enoxaparin Sodium 60 MG/0.6 ML SYRINGE SC SCH (21:00)
[2022-04-13] MEDS ORDERED: Metoprolol Tartrate 100 MG TAB PO SCH (22:45)
[2022-04-13] MEDS: Rosuvastatin 10 MG TAB PO SCH (22:51)
[2022-04-14] MEDS: Meropenem 500 MG in Sodium Chloride 0.9% 100 ML IVPB SCH ×2 (00:38→11:56)
[2022-04-14] MEDS: MULTIVITAMINS IV SCH (03:29)
[2022-04-14] MEDS: WATER IV SCH (03:29)
[2022-04-14] MEDS: SODIUM BICARBONATE IV SCH (03:29)
[2022-04-14] MEDS: DEXTROSE IV SCH (03:29)
[2022-04-14] MEDS: hydrALAZINE 20 MG/ML VIAL SLOW IVP PRN (06:22)
[2022-04-14 07:50] LABS: Anion Gap 18 mmol/L (10-20); BUN (Urea Nitrogen) 18 mg/dL (9.8-20.1); Calc. Creatinine Clearance 23 mL/min (70-130); Calcium 8.5 mg/dL (7.8-10.44); Carbon Dioxide 26 mmol/L (23-31); Chloride 101 mmol/L (98-107); Estimated GFR 30; Glucose 168 mg/dL (83-110); Potassium 3.7 mmol/L (3.5-5.1); Sodium 141 mmol/L (136-145)
[2022-04-14 07:56] LABS: Band 21 % (5-11); Large Platelets SLIGHT; Lymphocytes 5 % (21-51); MDiff Complete? YES; Macrocytosis SLIGHT = 6-15 cells (100X) (0-5/hpf); Mean Corpuscular HGB CONC 33.9 g/dL (32.0-36.0); Mean Corpuscular Hemoglobin 34.5 pg (27.0-31.0); Mean Platelet Volume 9.8 fL (7.4-10.4); Metamyelocyte 1 % (0-0); Monocytes 10 % (0-10); Myelocyte 1 % (0-0); Neutrophil 62 % (42-75); Platelet Count 115 thou/uL (130-400); Platelet Morphology Comment Appears Decreased; Polychromasia SLIGHT = 2-3 cells (100X) (0-2/hpf); RBC Distribution Width 12.9 % (11.5-14.5); Red Blood Cell (RBC) Count 3.19 mill/uL (4.20-5.40); Target Cells SLIGHT = 2-5 cells (100X) (0-1/hpf); Tear Drops SLIGHT = 2-5 cells (100X) (0-1/hpf); White Blood Cell (WBC) Count 14.4 thou/uL (4.8-10.8)
[2022-04-14] MEDS ORDERED: Diltiazem HCl 125 MG in Premix Bag 1 BAG IVPB SCH (08:15)
[2022-04-14] MEDS: Thiamine HCl 200 MG/2 ML VIAL IM SCH (09:32)
[2022-04-14] MEDS ORDERED: Phenylephrine 0.25% Nasal Spray 15 ML BOT ONE ×2 (09:45→15:42)
[2022-04-14] MEDS: Clopidogrel Bisulfate 75 MG TAB PO SCH (09:57)
[2022-04-14] MEDS: Aspirin 325 MG TAB PO SCH (09:57)
[2022-04-14] MEDS: Multivit, Therapeutic 1 TAB PO SCH (09:58)
[2022-04-14] MEDS: Folic Acid 1 MG TAB PO SCH (09:58)
[2022-04-14] MEDS: Febuxostat 40 MG TAB PO SCH (10:42)
[2022-04-14] MEDS: Acetaminophen 325 MG TAB PO PRN ×2 (11:54→18:13)
[2022-04-14] MEDS ORDERED: Diazepam 5 MG TAB PO PRN (16:17)
[2022-04-14] MEDS ORDERED: Acetaminophen/Codeine 30-300mg Tablet PO PRN (21:16)
[2022-04-14] MEDS: Enoxaparin Sodium 60 MG/0.6 ML SYRINGE SC SCH (21:24)
[2022-04-14] MEDS: Lidocaine 5% Patch TD SCH (21:24)
[2022-04-14] MEDS: Rosuvastatin 10 MG TAB PO SCH (21:24)
[2022-04-15] MEDS: Meropenem 500 MG in Sodium Chloride 0.9% 100 ML IVPB SCH ×2 (00:46→13:51)
[2022-04-15] MEDS: Thiamine HCl 200 MG/2 ML VIAL IM SCH (08:50)
[2022-04-15] MEDS: Aspirin 325 MG TAB PO SCH (08:51)
[2022-04-15] MEDS: Transdermal Patch Removal TOP SCH (08:51)
[2022-04-15] MEDS: Multivit, Therapeutic 1 TAB PO SCH (08:51)
[2022-04-15] MEDS: Febuxostat 40 MG TAB PO SCH (08:51)
[2022-04-15] MEDS: Folic Acid 1 MG TAB PO SCH (08:51)
[2022-04-15] MEDS: Clopidogrel Bisulfate 75 MG TAB PO SCH (08:51)
[2022-04-15] MEDS: Diazepam 5 MG TAB PO SCH ×3 (08:51→21:00)
[2022-04-15] MEDS ORDERED: Diazepam 5 MG TAB PO SCH (16:30)
[2022-04-15] MEDS: Rosuvastatin 10 MG TAB PO SCH (21:54)
[2022-04-15] MEDS: Lidocaine 5% Patch TD SCH (21:54)
[2022-04-15] MEDS: Enoxaparin Sodium 60 MG/0.6 ML SYRINGE SC SCH (21:54)
[2022-04-16] MEDS: Meropenem 500 MG in Sodium Chloride 0.9% 100 ML IVPB SCH (00:12)
[2022-04-16 04:22] LABS: Hemoglobin 9.7 g/dL (12.0-16.0); Mean Corpuscular HGB CONC 32.2 g/dL (32.0-36.0); Mean Corpuscular Hemoglobin 32.9 pg (27.0-31.0); Mean Platelet Volume 9.6 fL (7.4-10.4); Platelet Count 208 thou/uL (130-400); RBC Distribution Width 12.7 % (11.5-14.5); Red Blood Cell (RBC) Count 2.94 mill/uL (4.20-5.40)
[2022-04-16 04:27] LABS: Anion Gap 17 mmol/L (10-20); BUN (Urea Nitrogen) 15 mg/dL (9.8-20.1); Calc. Creatinine Clearance 33 mL/min (70-130); Calcium 9.1 mg/dL (7.8-10.44); Carbon Dioxide 28 mmol/L (23-31); Chloride 102 mmol/L (98-107); Estimated GFR 46; Glucose 129 mg/dL (83-110); Sodium 144 mmol/L (136-145)
[2022-04-16 04:39] LABS: Potassium 2.8 mmol/L (3.5-5.1)
[2022-04-16 04:43] LABS: Band 16 % (5-11); Lymphocytes 4 % (21-51); MDiff Complete? YES; Monocytes 4 % (0-10); Myelocyte 1 % (0-0); Neutrophil 75 % (42-75)
[2022-04-16] MEDS ORDERED: Potassium Chloride 20 MEQ TAB PO SCH (05:30)
[2022-04-16] MEDS: Diazepam 10 MG/2 ML SYRINGE IVP PRN (06:08)
[2022-04-16] MEDS ORDERED: Potassium Chloride 20 MEQ in Premix Bag 1 BAG IVPB SCH (06:30)
[2022-04-16] MEDS: Aspirin 325 MG TAB PO SCH (08:53)
[2022-04-16] MEDS: Multivit, Therapeutic 1 TAB PO SCH (08:53)
[2022-04-16] MEDS: Potassium Chloride 20 MEQ TAB PO SCH ×3 (08:54→20:18)
[2022-04-16] MEDS: Folic Acid 1 MG TAB PO SCH (08:54)
[2022-04-16] MEDS: Clopidogrel Bisulfate 75 MG TAB PO SCH (08:54)
[2022-04-16] MEDS: Febuxostat 40 MG TAB PO SCH (08:54)
[2022-04-16] MEDS: Diazepam 5 MG TAB PO SCH ×3 (09:00→21:59)
[2022-04-16] MEDS: Transdermal Patch Removal TOP SCH (09:00)
[2022-04-16] MEDS: Thiamine HCl 200 MG/2 ML VIAL IM SCH (09:00)
[2022-04-16] MEDS: Meropenem 1 GM in Sodium Chloride 0.9% 100 ML IVPB SCH (14:17)
[2022-04-16] MEDS ORDERED: Lidocaine 5% Patch TD SCH (17:00)
[2022-04-16] MEDS: Metoprolol Tartrate 100 MG TAB PO SCH (20:18)
[2022-04-16] MEDS: Rosuvastatin 10 MG TAB PO SCH (20:18)
[2022-04-16] MEDS: Enoxaparin Sodium 60 MG/0.6 ML SYRINGE SC SCH (20:26)
[2022-04-16] MEDS: Acetaminophen 325 MG TAB PO PRN ×2 (21:52)
[2022-04-17] MEDS: Meropenem 1 GM in Sodium Chloride 0.9% 100 ML IVPB SCH ×2 (01:08→12:18)
[2022-04-17 04:14] LABS: #Lymphocytes 0.8 thou/uL (1.20-3.40); #Neutrophils 9.6 thou/uL (1.40-6.50); %Basophils 0.1 % (0.0-1.0); %Eosinophils 0.4 % (0.0-10.0); %Lymphocytes 6.7 % (21.0-51.0); %Monocytes 8.6 % (0.0-10.0); %Neutrophils 84.2 % (42.0-75.0); Hemoglobin 9.7 g/dL (12.0-16.0); Mean Corpuscular HGB CONC 31.1 g/dL (32.0-36.0); Mean Corpuscular Hemoglobin 31.7 pg (27.0-31.0); Mean Platelet Volume 9.5 fL (7.4-10.4); Platelet Count 234 thou/uL (130-400); Red Blood Cell (RBC) Count 3.07 mill/uL (4.20-5.40); White Blood Cell (WBC) Count 11.4 thou/uL (4.8-10.8)
[2022-04-17 04:31] LABS: Anion Gap 15 mmol/L (10-20); BUN (Urea Nitrogen) 15 mg/dL (9.8-20.1); Calc. Creatinine Clearance 33 mL/min (70-130); Carbon Dioxide 28 mmol/L (23-31); Chloride 105 mmol/L (98-107); Estimated GFR 46; Glucose 124 mg/dL (83-110); Potassium 3.8 mmol/L (3.5-5.1); Sodium 144 mmol/L (136-145)
[2022-04-17] MEDS: Transdermal Patch Removal TOP SCH ×2 (05:30→09:48)
[2022-04-17] MEDS: Multivit, Therapeutic 1 TAB PO SCH (09:46)
[2022-04-17] MEDS: Clopidogrel Bisulfate 75 MG TAB PO SCH (09:46)
[2022-04-17] MEDS: Folic Acid 1 MG TAB PO SCH (09:46)
[2022-04-17] MEDS: Potassium Chloride 20 MEQ TAB PO SCH ×3 (09:46→21:18)
[2022-04-17] MEDS: Aspirin 325 MG TAB PO SCH (09:46)
[2022-04-17] MEDS: Febuxostat 40 MG TAB PO SCH (09:46)
[2022-04-17] MEDS: Metoprolol Tartrate 100 MG TAB PO SCH ×2 (09:46→21:18)
[2022-04-17] MEDS: Diazepam 5 MG TAB PO SCH ×4 (09:46→21:18)
[2022-04-17] MEDS: Thiamine HCl 200 MG/2 ML VIAL IM SCH (09:47)
[2022-04-17] MEDS: Acetaminophen 500 MG TAB PO SCH ×4 (09:47→21:18)
[2022-04-17] MEDS ORDERED: Diazepam 5 MG TAB PO SCH (15:00)
[2022-04-17] MEDS: Lidocaine 5% Patch TD SCH (17:50)
[2022-04-17] MEDS ORDERED: Enoxaparin Sodium 60 MG/0.6 ML SYRINGE SC SCH (21:00)
[2022-04-17] MEDS: Rosuvastatin 10 MG TAB PO SCH (21:18)
[2022-04-18] MEDS: Meropenem 1 GM in Sodium Chloride 0.9% 100 ML IVPB SCH (00:33)
[2022-04-18] MEDS: Acetaminophen 500 MG TAB PO SCH ×5 (00:33→17:42)
[2022-04-18] MEDS: Diazepam 10 MG/2 ML SYRINGE IVP PRN ×2 (03:32→05:44)
[2022-04-18] MEDS: Transdermal Patch Removal TOP SCH (04:27)
[2022-04-18 07:01] LABS: Mean Corpuscular HGB CONC 31.1 g/dL (32.0-36.0); Mean Corpuscular Hemoglobin 31.5 pg (27.0-31.0); Mean Platelet Volume 9.8 fL (7.4-10.4); Platelet Count 249 thou/uL (130-400); RBC Distribution Width 13.1 % (11.5-14.5); Red Blood Cell (RBC) Count 3.49 mill/uL (4.20-5.40); White Blood Cell (WBC) Count 14.5 thou/uL (4.8-10.8)
[2022-04-18 07:22] LABS: Anion Gap 16 mmol/L (10-20); BUN (Urea Nitrogen) 14 mg/dL (9.8-20.1); Calc. Creatinine Clearance 28 mL/min (70-130); Carbon Dioxide 24 mmol/L (23-31); Chloride 103 mmol/L (98-107); Estimated GFR 45; Glucose 109 mg/dL (83-110); Potassium 4.1 mmol/L (3.5-5.1); Sodium 139 mmol/L (136-145)
[2022-04-18 07:52] LABS: Band 10 % (5-11); Eosinophils 1 % (0-10); Lymphocytes 10 % (21-51); MDiff Complete? YES; Monocytes 1 % (0-10); Neutrophil 78 % (42-75); Platelet Morphology Comment Appears Adequate; RBC Morphology Normal
[2022-04-18] MEDS: Clopidogrel Bisulfate 75 MG TAB PO SCH (09:26)
[2022-04-18] MEDS: Aspirin 325 MG TAB PO SCH (09:26)
[2022-04-18] MEDS: Metoprolol Tartrate 100 MG TAB PO SCH ×2 (09:27→21:12)
[2022-04-18] MEDS: Thiamine HCl 200 MG/2 ML VIAL IM SCH (09:27)
[2022-04-18] MEDS: Folic Acid 1 MG TAB PO SCH (09:27)
[2022-04-18] MEDS: Diazepam 5 MG TAB PO SCH ×3 (09:27→21:12)
[2022-04-18] MEDS: Potassium Chloride 20 MEQ TAB PO SCH ×3 (09:27→21:11)
[2022-04-18] MEDS: Febuxostat 40 MG TAB PO SCH (09:27)
[2022-04-18] MEDS: Multivit, Therapeutic 1 TAB PO SCH (09:27)
[2022-04-18 10:41] LABS: Bacteria/HPF None Seen HPF (None Seen); Bilirubin Negative (Negative); Blood, Urine Trace (Negative); Clarity Clear (Clear); Glucose, Urine (Dipstick) 300 mg/dL (Negative); Ketone, Urine Trace mg/dL (Negative); Leukocyte Negative Leu/uL (Negative); Nitrite Negative (Negative); Protein, Urine (Dipstick) 100 mg/dL (Neg-Trace); RBC/HPF 0-3 HPF (0-3); Specific Gravity, Urine 1.009 (1.002-1.036); Squamous Epithelial 0-3 HPF (0-3); Urobilinogen Normal mg/dL (Less than 2); WBC/HPF 0-3 HPF (0-3)
[2022-04-18] MEDS: hydrALAZINE 20 MG/ML VIAL SLOW IVP PRN (11:49)
[2022-04-18] MEDS ORDERED: cloNIDine 0.1 MG TAB PO PRN (12:16)
[2022-04-18] MEDS: Meropenem 500 MG in Sodium Chloride 0.9% 100 ML IVPB SCH (13:53)
[2022-04-18] MEDS: Lidocaine 5% Patch TD SCH (17:22)
[2022-04-18] MEDS ORDERED: Enoxaparin Sodium 60 MG/0.6 ML SYRINGE SC SCH (21:00)
[2022-04-18] MEDS: Rosuvastatin 10 MG TAB PO SCH (21:12)
[2022-04-19] MEDS: Acetaminophen 500 MG TAB PO SCH ×5 (03:22→13:25)
[2022-04-19] MEDS: Meropenem 500 MG in Sodium Chloride 0.9% 100 ML IVPB SCH ×2 (03:24→13:25)
[2022-04-19] MEDS: Transdermal Patch Removal TOP SCH (06:07)
[2022-04-19 06:34] LABS: #Eosinphils 0.1 thou/uL (0.0-0.7); #Monocytes 0.8 thou/uL (0.11-0.59); #Neutrophils 12.7 thou/uL (1.40-6.50); %Basophils 0.1 % (0.0-1.0); %Eosinophils 0.6 % (0.0-10.0); %Lymphocytes 6.8 % (21.0-51.0); %Monocytes 5.3 % (0.0-10.0); %Neutrophils 87.3 % (42.0-75.0); Hemoglobin 10.6 g/dL (12.0-16.0); Mean Corpuscular HGB CONC 31.6 g/dL (32.0-36.0); Mean Corpuscular Hemoglobin 31.9 pg (27.0-31.0); Mean Platelet Volume 9.9 fL (7.4-10.4); Platelet Count 255 thou/uL (130-400); RBC Distribution Width 12.8 % (11.5-14.5); Red Blood Cell (RBC) Count 3.32 mill/uL (4.20-5.40); White Blood Cell (WBC) Count 14.5 thou/uL (4.8-10.8)
[2022-04-19 06:56] LABS: Anion Gap 16 mmol/L (10-20); BUN (Urea Nitrogen) 16 mg/dL (9.8-20.1); Calc. Creatinine Clearance 28 mL/min (70-130); Calcium 9.9 mg/dL (7.8-10.44); Carbon Dioxide 23 mmol/L (23-31); Chloride 104 mmol/L (98-107); Estimated GFR 45; Glucose 93 mg/dL (83-110); Potassium 4.1 mmol/L (3.5-5.1); Sodium 139 mmol/L (136-145)
[2022-04-19 09:00] VITALS: BMI 19.1
[2022-04-19] MEDS: Clopidogrel Bisulfate 75 MG TAB PO SCH (09:55)
[2022-04-19] MEDS: Aspirin 325 MG TAB PO SCH (09:55)
[2022-04-19] MEDS: Multivit, Therapeutic 1 TAB PO SCH (09:55)
[2022-04-19] MEDS: Potassium Chloride 20 MEQ TAB PO SCH (09:56)
[2022-04-19] MEDS: Febuxostat 40 MG TAB PO SCH (09:56)
[2022-04-19] MEDS: Metoprolol Tartrate 100 MG TAB PO SCH (09:57)
[2022-04-19] MEDS: Folic Acid 1 MG TAB PO SCH (09:57)
[2022-04-19] MEDS: Diazepam 5 MG TAB PO SCH (09:57)
[2022-04-19] MEDS: Thiamine HCl 200 MG/2 ML VIAL IM SCH (09:58)
[2022-04-19 12:16] VITALS: TEMP 97.2
[2022-04-19] MEDS ORDERED: Metoprolol Tartrate 5 MG/5 ML VIAL IVP SCH (12:45)
[2022-04-19 13:35] VITALS: BP 134/84
== END 2022-04-19 15:25 | DRG 871 ==
LOC: ERS 15:54 → ERHOLD 18:15 → NEURO 22:48 → CCU 04-09 03:50 → 2NO 04-09 18:04 → T4-B 04-11 16:03 → IMCU/EMU 04-13 15:40
PROVIDERS: ADMIT Family Medicine; ATTEND Family Medicine
PROC: 3E03329 Introduction of Other Anti-infective into Peripheral Vein, Percutaneous Approach (ICD-10-PCS; principal; 2022-04-09)
PROC: 3E04329 Introduction of Other Anti-infective into Central Vein, Percutaneous Approach (ICD-10-PCS; 2022-04-11)
PROC: 02HV33Z Insertion of Infusion Device into Superior Vena Cava, Percutaneous Approach (ICD-10-PCS; 2022-04-11)
PROC: B5181ZA Fluoroscopy of Superior Vena Cava using Low Osmolar Contrast, Guidance (ICD-10-PCS; 2022-04-11)
PROC: B548ZZA Ultrasonography of Superior Vena Cava, Guidance (ICD-10-PCS; 2022-04-11)
PROC: 02HV33Z Insertion of Infusion Device into Superior Vena Cava, Percutaneous Approach (ICD-10-PCS; 2022-04-15)
PROC: B5181ZA Fluoroscopy of Superior Vena Cava using Low Osmolar Contrast, Guidance (ICD-10-PCS; 2022-04-15)
PROC: B548ZZA Ultrasonography of Superior Vena Cava, Guidance (ICD-10-PCS; 2022-04-15)
PROC: HZ2ZZZZ Detoxification Services for Substance Abuse Treatment (ICD-10-PCS; 2022-04-18)
DX: A41.51 Sepsis due to Escherichia coli [E. coli] (principal); G93.41 Metabolic encephalopathy; Z20.822 Contact with and (suspected) exposure to COVID-19; I21.A1 Myocardial infarction type 2; N12 Tubulo-interstitial nephritis, not specified as acute or chronic; N17.9 Acute kidney failure, unspecified; N18.4 Chronic kidney disease, stage 4 (severe); F10.131 Alcohol abuse with withdrawal delirium; Z16.30 Resistance to unspecified antimicrobial drugs; E87.2 Acidosis; R65.20 Severe sepsis without septic shock; G89.29 Other chronic pain; M54.9 Dorsalgia, unspecified; F51.04 Psychophysiologic insomnia; F41.9 Anxiety disorder, unspecified; I12.9 Hypertensive chronic kidney disease with stage 1 through stage 4 chronic kidney disease, or unspecified chronic kidney disease; E11.22 Type 2 diabetes mellitus with diabetic chronic kidney disease; D63.1 Anemia in chronic kidney disease; K21.9 Gastro-esophageal reflux disease without esophagitis; I51.89 Other ill-defined heart diseases; E78.00 Pure hypercholesterolemia, unspecified; I48.91 Unspecified atrial fibrillation; X58.XXXD Exposure to other specified factors, subsequent encounter; S22.071D Stable burst fracture of T9-T10 vertebra, subsequent encounter for fracture with routine healing; Z90.49 Acquired absence of other specified parts of digestive tract; Z88.1 Allergy status to other antibiotic agents; Z88.5 Allergy status to narcotic agent; Z88.2 Allergy status to sulfonamides; Z88.8 Allergy status to other drugs, medicaments and biological substances; Z88.0 Allergy status to penicillin; Z88.7 Allergy status to serum and vaccine; Z79.899 Other long term (current) drug therapy; Z90.710 Acquired absence of both cervix and uterus; Z85.3 Personal history of malignant neoplasm of breast; Z92.3 Personal history of irradiation; Z90.89 Acquired absence of other organs; Z87.440 Personal history of urinary (tract) infections; Z98.51 Tubal ligation status
CPT/HCPCS: 36415; 36416; 36569; 36600; 70450; 71045; 71275; 72128; 72131; 74174; 80048; 80053; 80061; 81001; 81003; 81015; 82274; 82553; 82805; 83036; 83605; 83880; 84443; 84484; 85025; 87040; 87077; 87086; 87149; 87186; 87811; 93005; 93010; 95816; 95819; 95957; 96372; C1751; J0360; J0696; J1644; J1650; J2060; J2185; J2250; J2405; J3360; J3411; J3480; J3490; J7050; J7070; Q9967; U0002

== ENCOUNTER 2023-01-20 12:40 | Outpatient (CLI) | payer MEDICARE, BC | END 2023-01-20 12:41 | disposition home or self-care (01) | LOC: BICMAMMO 12:40 | PROVIDERS: ATTEND Specialist | DX: Z12.31 Encounter for screening mammogram for malignant neoplasm of breast (principal) | CPT/HCPCS: 77063; 77067 ==

== ENCOUNTER 2024-01-23 10:08 | Outpatient (CLI) | payer MEDICARE, BC | END 2024-01-23 10:09 | disposition home or self-care (01) | LOC: BICMAMMO 10:08 | PROVIDERS: ATTEND Specialist | DX: Z12.31 Encounter for screening mammogram for malignant neoplasm of breast (principal); Z85.3 Personal history of malignant neoplasm of breast; Z91.89 Other specified personal risk factors, not elsewhere classified | CPT/HCPCS: 77063; 77067 ==

== ENCOUNTER 2024-06-16 07:38 | Day surgery (SDC) | payer MEDICARE, BC ==
[2024-06-15 12:59] VITALS: BMI 17.8
[2024-06-16] MEDS ORDERED: PROPOFOL 20 ML ONE ×2 (08:57→09:59)
[2024-06-16] MEDS ORDERED: PHENYLEPHRINE-NS 100 MCG/ML 10 ML SYRINGE ONE (09:52)
== END 2024-06-16 11:04 | disposition home or self-care (01) ==
LOC: SDC 07:38
PROVIDERS: ATTEND Internal Medicine Gastroenterology
PROC: 0DBK8ZX Excision of Ascending Colon, Via Natural or Artificial Opening Endoscopic, Diagnostic (ICD-10-PCS; principal; 2024-06-16)
PROC: 0DBP8ZX Excision of Rectum, Via Natural or Artificial Opening Endoscopic, Diagnostic (ICD-10-PCS; 2024-06-16)
PROC: 0DBM8ZX Excision of Descending Colon, Via Natural or Artificial Opening Endoscopic, Diagnostic (ICD-10-PCS; 2024-06-16)
DX: K52.9 Noninfective gastroenteritis and colitis, unspecified (principal); K62.89 Other specified diseases of anus and rectum; K57.30 Diverticulosis of large intestine without perforation or abscess without bleeding; K64.8 Other hemorrhoids; K51.90 Ulcerative colitis, unspecified, without complications; A49.8 Other bacterial infections of unspecified site; I10 Essential (primary) hypertension; E11.9 Type 2 diabetes mellitus without complications; E78.5 Hyperlipidemia, unspecified; F41.9 Anxiety disorder, unspecified; M81.8 Other osteoporosis without current pathological fracture; M10.9 Gout, unspecified; M19.90 Unspecified osteoarthritis, unspecified site; G47.09 Other insomnia; N32.81 Overactive bladder; Z85.828 Personal history of other malignant neoplasm of skin; Z85.3 Personal history of malignant neoplasm of breast; Z79.899 Other long term (current) drug therapy
CPT/HCPCS: 45380; J2704; 88305

== ENCOUNTER 2024-06-23 11:30 | Emergency (ER) | payer MEDICARE, BC ==
[2024-06-23 12:14] LABS: #Basophils Less than 0.03 10x3/uL (0.0-0.2); %Basophils 0.2 % (0.0-1.0); %Eosinophils 0.4 % (0.0-10.0); %Lymphocytes 10.1 % (21.0-51.0); %Monocytes 7.8 % (0.0-10.0); %Neutrophils 80.4 % (42.0-75.0); Hematocrit 34.3 % (36.0-47.0); Hemoglobin 10.9 g/dL (12.0-16.0); Mean Corpuscular HGB CONC 31.8 g/dL (32.0-36.0); Mean Corpuscular Hemoglobin 31.5 pg (27.0-31.0); Mean Corpuscular Volume 99.1 fL (78.0-98.0); Mean Platelet Volume 10.7 fL (7.4-10.4); Platelet Count 235 10x3/uL (130-400); RBC Distribution Width 13.9 % (11.5-14.5); Red Blood Cell (RBC) Count 3.46 mill/uL (4.20-5.40)
[2024-06-23 12:31] LABS: ALT (SGPT) 22 U/L (8-55); AST (SGOT) 22 U/L (5-34); Albumin 3.2 g/dL (3.4-4.8); Alkaline Phosphatase 51 U/L (40-110); Anion Gap 14 mmol/L (10-20); BUN (Urea Nitrogen) 21 mg/dL (9.8-20.1); Bilirubin, Total 0.3 mg/dL (0.2-1.2); Calc. Creatinine Clearance 0 mL/min (70-130); Calcium 9.4 mg/dL (7.8-10.44); Carbon Dioxide 26 mmol/L (23-31); Chloride 102 mmol/L (98-107); Estimated GFR 27; Glucose 119 mg/dL (83-110); Potassium 4.3 mmol/L (3.5-5.1); Protein, Total 7.2 g/dL (5.8-8.1); Sodium 138 mmol/L (136-145)
[2024-06-23 12:42] LABS: PTT 27.4 sec (22.9-36.1); Prothrombin Time 13.3 sec (12.0-14.7)
[2024-06-23 13:13] LABS: Troponin I Less than 0.010 ng/mL (< 0.028)
[2024-06-23 14:11] LABS: Bacteria/HPF None Seen HPF (None Seen); Bilirubin Negative (Negative); Blood, Urine Negative (Negative); CAUTI Indications for Culture Pelvic or flank pain; Clarity Clear (Clear); Glucose, Urine (Dipstick) Normal (Negative); Ketone, Urine Negative (Negative); Leukocyte Negative Leu/uL (Negative); Nitrite Negative (Negative); Protein, Urine (Dipstick) 30 mg/dL (Neg-Trace); RBC/HPF None Seen HPF (0-3); Specific Gravity, Urine 1.003 (1.002-1.036); Urobilinogen Normal mg/dL (Less than 2); WBC/HPF 0-3 HPF (0-3); pH, Urine 6.5 (5.0-9.0)
[2024-06-23 14:16] LABS: Urine Culture Reflex No No
== END 2024-06-23 15:03 | disposition home or self-care (01) ==
LOC: ERS 11:30
DX: R79.89 Other specified abnormal findings of blood chemistry (principal); R53.83 Other fatigue; S81.802D Unspecified open wound, left lower leg, subsequent encounter; I10 Essential (primary) hypertension; E11.9 Type 2 diabetes mellitus without complications; E78.00 Pure hypercholesterolemia, unspecified; Z79.899 Other long term (current) drug therapy; X58.XXXD Exposure to other specified factors, subsequent encounter
CPT/HCPCS: 36415; 51701; 80053; 81001; 83605; 84484; 85025; 85610; 85730; 93005

== ENCOUNTER 2024-07-03 00:01 | Inpatient (IN) | payer MEDICARE, BC ==
[2024-07-03 00:30] VITALS: BMI 19.7
[2024-07-03] MEDS ORDERED: Acetaminophen 650 MG Suppository PR PRN (01:03)
[2024-07-03] MEDS: Acetaminophen 325 MG TAB PO SCH (01:36)
[2024-07-03] MEDS: Furosemide 20 MG (2 mL) VIAL SLOW IVP SCH (06:07)
[2024-07-03 07:48] LABS: #Basophils Less than 0.03 10x3/uL (0.0-0.2); %Basophils 0.1 % (0.0-1.0); %Eosinophils 0.3 % (0.0-10.0); %Lymphocytes 7.1 % (21.0-51.0); %Neutrophils 83.8 % (42.0-75.0); Hematocrit 30.3 % (36.0-47.0); Hemoglobin 9.2 g/dL (12.0-16.0); Mean Corpuscular HGB CONC 30.4 g/dL (32.0-36.0); Mean Corpuscular Hemoglobin 31.2 pg (27.0-31.0); Mean Corpuscular Volume 102.7 fL (78.0-98.0); Mean Platelet Volume 10.9 fL (7.4-10.4); Platelet Count 234 10x3/uL (130-400); Red Blood Cell (RBC) Count 2.95 mill/uL (4.20-5.40)
[2024-07-03] MEDS ORDERED: Alendronate Sodium 70 mg Tablet PO SCH (09:00)
[2024-07-03] MEDS ORDERED: Famotidine 20 MG TAB PO SCH (09:00)
[2024-07-03] MEDS ORDERED: Famotidine/PF 20 mg/2ml Vial SLOW IVP SCH (09:00)
[2024-07-03] MEDS: Gabapentin 100 MG CAP PO SCH (09:17)
[2024-07-03] MEDS: dilTIAZem CD 300 MG CAP PO SCH (09:18)
[2024-07-03] MEDS: Metoprolol Tartrate 100 MG TAB PO SCH (09:18)
[2024-07-03] MEDS: cefTRIAXone\\ROCEPHIN 1 GM in Sodium Chloride 0.9% 100 ML IVPB SCH (09:19)
[2024-07-03 09:26] LABS: ALT (SGPT) 11 U/L (8-55); AST (SGOT) 22 U/L (5-34); Albumin 2.6 g/dL (3.4-4.8); Alkaline Phosphatase 70 U/L (40-110); Anion Gap 17 mmol/L (10-20); BUN (Urea Nitrogen) 23 mg/dL (9.8-20.1); Bilirubin, Total 0.3 mg/dL (0.2-1.2); Calc. Creatinine Clearance 17 mL/min (70-130); Calcium 8.4 mg/dL (7.8-10.44); Carbon Dioxide 18 mmol/L (23-31); Chloride 105 mmol/L (98-107); Estimated GFR 25; Globulin 3.6 g/dL (2.4-3.5); Glucose 80 mg/dL (83-110); Potassium 3.7 mmol/L (3.5-5.1); Protein, Total 6.2 g/dL (5.8-8.1); Sodium 136 mmol/L (136-145)
[2024-07-03] MEDS: Pantoprazole DR 40 MG TAB PO SCH (19:51)
[2024-07-03] MEDS: Rosuvastatin 20 MG TAB PO SCH (19:51)
[2024-07-03] MEDS: Melatonin 3 MG TAB PO PRN (20:59)
[2024-07-03] MEDS: Acetaminophen 325 MG (10.15 ML) UDCUP PO SCH (21:00)
[2024-07-04] MEDS: Ondansetron ODT 4 MG TAB PO PRN (04:48)
[2024-07-04 07:42] LABS: Hematocrit 27.2 % (36.0-47.0); Hemoglobin 8.6 g/dL (12.0-16.0); Mean Corpuscular HGB CONC 31.6 g/dL (32.0-36.0); Mean Corpuscular Hemoglobin 31.2 pg (27.0-31.0); Mean Corpuscular Volume 98.6 fL (78.0-98.0); Platelet Count 278 10x3/uL (130-400); RBC Distribution Width 13.9 % (11.5-14.5); Red Blood Cell (RBC) Count 2.76 mill/uL (4.20-5.40)
[2024-07-04 08:08] LABS: Anion Gap 13 mmol/L (10-20); BUN (Urea Nitrogen) 20 mg/dL (9.8-20.1); Calc. Creatinine Clearance 16 mL/min (70-130); Calcium 8.3 mg/dL (7.8-10.44); Carbon Dioxide 23 mmol/L (23-31); Chloride 102 mmol/L (98-107); Estimated GFR 23; Glucose 136 mg/dL (83-110); Potassium 3.4 mmol/L (3.5-5.1); Sodium 135 mmol/L (136-145)
[2024-07-04] MEDS ORDERED: Polyethylene Glycol 3350 17 GM Packet PO PRN (08:37)
[2024-07-04] MEDS: Potassium Chloride 20 MEQ TAB PO SCH (08:56)
[2024-07-04] MEDS: Senokot S 8.6-50 MG TAB PO SCH (08:57)
[2024-07-05] MEDS: Ondansetron PF 4 MG/2 ML Vial IVP PRN (05:23)
[2024-07-05] MEDS ORDERED: VANCOMYCIN IVPB PRN (08:17)
[2024-07-05 09:05] LABS: Hematocrit 29.1 % (36.0-47.0); Hemoglobin 9.2 g/dL (12.0-16.0); Mean Corpuscular HGB CONC 31.6 g/dL (32.0-36.0); Mean Corpuscular Hemoglobin 31.4 pg (27.0-31.0); Mean Corpuscular Volume 99.3 fL (78.0-98.0); Mean Platelet Volume 11.1 fL (7.4-10.4); Platelet Count 285 10x3/uL (130-400); Red Blood Cell (RBC) Count 2.93 mill/uL (4.20-5.40)
[2024-07-05] MEDS: Meropenem 1 GM in Sodium Chloride 0.9% 100 ML IVPB SCH (09:05)
[2024-07-05] MEDS ORDERED: Vancomycin Dose by Levels Sliding Scale (Wt <71) FS SCH (09:15)
[2024-07-05 09:29] LABS: Anion Gap 11 mmol/L (10-20); BUN (Urea Nitrogen) 16 mg/dL (9.8-20.1); Calc. Creatinine Clearance 15 mL/min (70-130); Calcium 8.8 mg/dL (7.8-10.44); Carbon Dioxide 21 mmol/L (23-31); Chloride 104 mmol/L (98-107); Estimated GFR 21; Glucose 124 mg/dL (83-110); Sodium 132 mmol/L (136-145)
[2024-07-05] MEDS: Vancomycin 1 GM in Premix 1 BAG IVPB SCH (10:44)
[2024-07-05] MEDS: Lactated Ringer's 1,000 ML IV SCH (13:34)
[2024-07-05] MEDS ORDERED: Meropenem 1 GM in Sodium Chloride 0.9% 100 ML IVPB SCH (14:00)
[2024-07-05] MEDS: Meropenem 500 MG in Sodium Chloride 0.9% 100 ML IVPB SCH (17:16)
[2024-07-05] MEDS: Vancomycin HCl 125 MG Capsule PO SCH (18:20)
[2024-07-05] MEDS: Saccharomyces boulardii 250 MG CAP PO SCH (20:32)
[2024-07-05 20:52] VITALS: BMI 18.2
[2024-07-06 05:47] LABS: Hematocrit 29.6 % (36.0-47.0); Hemoglobin 9.4 g/dL (12.0-16.0); Mean Corpuscular HGB CONC 31.8 g/dL (32.0-36.0); Mean Corpuscular Hemoglobin 31.2 pg (27.0-31.0); Mean Corpuscular Volume 98.3 fL (78.0-98.0); Mean Platelet Volume 11.3 fL (7.4-10.4); Platelet Count 342 10x3/uL (130-400); RBC Distribution Width 13.9 % (11.5-14.5); Red Blood Cell (RBC) Count 3.01 mill/uL (4.20-5.40)
[2024-07-06 06:24] LABS: Anion Gap 12 mmol/L (10-20); BUN (Urea Nitrogen) 15 mg/dL (9.8-20.1); Calc. Creatinine Clearance 13 mL/min (70-130); Calcium 9.2 mg/dL (7.8-10.44); Carbon Dioxide 23 mmol/L (23-31); Chloride 103 mmol/L (98-107); Estimated GFR 20; Glucose 100 mg/dL (83-110); Potassium 3.8 mmol/L (3.5-5.1); Sodium 134 mmol/L (136-145)
[2024-07-06] MEDS: Vancomycin HCl 125 MG Capsule PO SCH (09:50)
[2024-07-06] MEDS: Saccharomyces boulardii 250 MG CAP PO SCH ×2 (09:50→09:56)
[2024-07-07 05:25] LABS: Anion Gap 12 mmol/L (10-20); BUN (Urea Nitrogen) 14 mg/dL (9.8-20.1); Calc. Creatinine Clearance 13 mL/min (70-130); Calcium 8.8 mg/dL (7.8-10.44); Carbon Dioxide 23 mmol/L (23-31); Chloride 106 mmol/L (98-107); Estimated GFR 20; Glucose 111 mg/dL (83-110); Potassium 3.4 mmol/L (3.5-5.1); Sodium 138 mmol/L (136-145)
[2024-07-07] MEDS: Benzocaine/Menthol 1 LOZ LOZ PO PRN (15:30)
[2024-07-08 09:01] VITALS: BP 156/68; TEMP 98.1
== END 2024-07-08 13:30 | disposition swing bed (61) | DRG 871 ==
LOC: OBS 00:01
PROVIDERS: ADMIT Student in an Organized Health Care Education/Training Program; ATTEND Internal Medicine
DX: A41.51 Sepsis due to Escherichia coli [E. coli] (principal); I50.33 Acute on chronic diastolic (congestive) heart failure; I13.0 Hypertensive heart and chronic kidney disease with heart failure and stage 1 through stage 4 chronic kidney disease, or unspecified chronic kidney disease; N13.0 Hydronephrosis with ureteropelvic junction obstruction; N39.0 Urinary tract infection, site not specified; Z16.24 Resistance to multiple antibiotics; E87.1 Hypo-osmolality and hyponatremia; E87.6 Hypokalemia; E11.22 Type 2 diabetes mellitus with diabetic chronic kidney disease; E78.5 Hyperlipidemia, unspecified; I48.0 Paroxysmal atrial fibrillation; D64.9 Anemia, unspecified; N18.30 Chronic kidney disease, stage 3 unspecified; E83.42 Hypomagnesemia; Z90.49 Acquired absence of other specified parts of digestive tract; Z98.51 Tubal ligation status; Z88.5 Allergy status to narcotic agent; Z88.1 Allergy status to other antibiotic agents
CPT/HCPCS: 36415; 80048; 80053; 83036; 84134; 85025; 85027; 87040; 87070; 87077; 87186; 87205; 93798; 97139; J0696; J1940; J2185; J2405; Q0162

== ENCOUNTER 2024-08-16 13:14 | Outpatient (CLI) | payer MEDICARE, BC | END 2024-08-16 13:15 | disposition home or self-care (01) | LOC: BICMRI 13:14 | PROVIDERS: ATTEND Family Medicine | DX: R29.898 Other symptoms and signs involving the musculoskeletal system (principal); I67.82 Cerebral ischemia; R60.9 Edema, unspecified | CPT/HCPCS: 70551 ==

== ENCOUNTER 2024-09-27 10:37 | Outpatient (CLI) | payer MEDICARE, BC | END 2024-09-27 10:38 | disposition home or self-care (01) | LOC: MRI 10:37 | PROVIDERS: ATTEND Family Medicine | DX: R29.898 Other symptoms and signs involving the musculoskeletal system (principal); M48.02 Spinal stenosis, cervical region | CPT/HCPCS: 72141 ==

== ENCOUNTER 2025-03-14 12:00 | Inpatient (IN) | payer MEDICARE, BC ==
[2025-03-14] MEDS ORDERED: Ondansetron PF 4 MG/2 ML Vial IVP PRN (13:21)
[2025-03-14] MEDS ORDERED: Senokot S 8.6-50 MG TAB PO PRN (13:21)
[2025-03-14] MEDS ORDERED: Calcium Carbonate 500 MG ChewTAB PO PRN (13:21)
[2025-03-14] MEDS ORDERED: HYDROcodone/Acetaminophen 5/325 mg Tablet PO PRN (13:22)
[2025-03-14 15:17] LABS: #Basophils Less than 0.03 10x3/uL (0.0-0.2); #Eosinophils 0.15 10x3/uL (0.0-0.7); #Monocytes 0.93 10x3/uL (0.11-0.59); #Neutrophils 9.11 10x3/uL (1.40-6.50); %Basophils 0.2 % (0.0-1.0); %Eosinophils 1.4 % (0.0-10.0); %Lymphocytes 7.4 % (21.0-51.0); %Monocytes 8.4 % (0.0-10.0); %Neutrophils 82.1 % (42.0-75.0); Hematocrit 29.6 % (36.0-47.0); Hemoglobin 8.6 g/dL (12.0-16.0); Mean Corpuscular Hemoglobin 28.2 pg (27.0-31.0); Mean Corpuscular Volume 97.0 fL (78.0-98.0); Platelet Count 223 10x3/uL (130-400); Red Blood Cell (RBC) Count 3.05 mill/uL (4.20-5.40); White Blood Cell (WBC) Count 11.08 10x3/uL (4.8-10.8)
[2025-03-14 15:37] LABS: ALT (SGPT) 60 U/L (Less than 34); AST (SGOT) 79 U/L (11-34); Albumin 3.6 g/dL (3.1-4.5); Alkaline Phosphatase 116 U/L (40-110); Anion Gap 15 mmol/L (10-20); BUN (Urea Nitrogen) 26 mg/dL (9.8-20.1); Bilirubin, Total 0.5 mg/dL (0.3-1.2); Calc. Creatinine Clearance 9 mL/min (70-130); Calcium 8.4 mg/dL (7.8-10.44); Carbon Dioxide 28 mmol/L (23-31); Chloride 90 mmol/L (98-107); Globulin 3.3 g/dL (2.4-3.5); Glucose 138 mg/dL (83-110); Magnesium 2.2 mg/dL (1.6-2.6); Potassium 3.4 mmol/L (3.5-5.1); Sodium 130 mmol/L (136-145)
[2025-03-14] MEDS: EPOETIN ALFA-EPBX (ESRD) 10,000 UNITS/ML VIAL SC SCH (17:43)
[2025-03-14] MEDS: Rosuvastatin 20 MG TAB PO SCH (20:47)
[2025-03-14] MEDS: Gabapentin 100 MG CAP PO SCH (20:47)
[2025-03-14] MEDS: dilTIAZem 30 MG TAB PO SCH (20:47)
[2025-03-14] MEDS: Melatonin 3 MG TAB PO PRN (21:51)
[2025-03-15 04:55] LABS: #Basophils 0.03 10x3/uL (0.0-0.2); #Eosinophils 0.16 10x3/uL (0.0-0.7); #Monocytes 0.82 10x3/uL (0.11-0.59); #Neutrophils 8.20 10x3/uL (1.40-6.50); %Basophils 0.3 % (0.0-1.0); %Eosinophils 1.6 % (0.0-10.0); %Lymphocytes 9.0 % (21.0-51.0); %Monocytes 8.0 % (0.0-10.0); %Neutrophils 80.5 % (42.0-75.0); Hematocrit 34.4 % (36.0-47.0); Hemoglobin 10.2 g/dL (12.0-16.0); Mean Corpuscular Hemoglobin 29.4 pg (27.0-31.0); Mean Corpuscular Volume 99.1 fL (78.0-98.0); Platelet Count 204 10x3/uL (130-400); Red Blood Cell (RBC) Count 3.47 mill/uL (4.20-5.40); White Blood Cell (WBC) Count 10.19 10x3/uL (4.8-10.8)
[2025-03-15 05:30] LABS: ALT (SGPT) 59 U/L (Less than 34); AST (SGOT) 69 U/L (11-34); Albumin 3.7 g/dL (3.1-4.5); Alkaline Phosphatase 122 U/L (40-110); Anion Gap 17 mmol/L (10-20); BUN (Urea Nitrogen) 28 mg/dL (9.8-20.1); Bilirubin, Total 0.5 mg/dL (0.3-1.2); Calc. Creatinine Clearance 8 mL/min (70-130); Calcium 8.9 mg/dL (7.8-10.44); Carbon Dioxide 23 mmol/L (23-31); Chloride 92 mmol/L (98-107); Globulin 3.8 g/dL (2.4-3.5); Glucose 98 mg/dL (83-110); Magnesium 2.2 mg/dL (1.6-2.6); Potassium 4.3 mmol/L (3.5-5.1); Sodium 128 mmol/L (136-145)
[2025-03-15 05:42] LABS: Hep B Core Total Index 0.04 S/CO (0-0.79); Hep C Index 0.10 S/CO (0-0.79)
[2025-03-15 06:03] LABS: HBSAB Concentration Less than 8.00 mIU/mL; Hep B Core Total Ab NONREACTIVE (NonReactive); Hep C IgG Ab NONREACTIVE S/CO (NonReactive)
[2025-03-15 06:42] LABS: Hep B Surf Ag Reflx Confirmation S/CO (NonReactive)
[2025-03-15] MEDS: Folic Acid/Vit B Comp W-C PO SCH (09:31)
[2025-03-15] MEDS: Pantoprazole 40 MG DR.TAB PO SCH (09:31)
[2025-03-15] MEDS ORDERED: Heparin 10,000 UNITS/ 10 ML VIAL ONE (09:31)
[2025-03-15] MEDS: Ezetimibe 10 MG TAB PO SCH (19:58)
[2025-03-15] MEDS: Transdermal Patch Removal LIDOCAINE TOP SCH (20:55)
[2025-03-15] MEDS: Guaifenesin DM 100-10/5 ML UDCUP PO PRN (20:58)
[2025-03-16 05:13] LABS: Hep B Surface AG-Rflx Sendout Confirm. indicated (Negative)
[2025-03-16] MEDS: dilTIAZem 30 MG TAB PO SCH (08:29)
[2025-03-16] MEDS: Acetaminophen 325 MG TAB PO PRN (16:45)
[2025-03-16] MEDS: Rosuvastatin 10 MG TAB PO SCH (20:25)
[2025-03-17 09:18] LABS: #Basophils 0.04 10x3/uL (0.0-0.2); #Eosinophils 0.13 10x3/uL (0.0-0.7); #Monocytes 0.99 10x3/uL (0.11-0.59); #Neutrophils 7.54 10x3/uL (1.40-6.50); %Basophils 0.4 % (0.0-1.0); %Eosinophils 1.3 % (0.0-10.0); %Lymphocytes 12.1 % (21.0-51.0); %Monocytes 9.9 % (0.0-10.0); %Neutrophils 75.8 % (42.0-75.0); Hematocrit 30.2 % (36.0-47.0); Hemoglobin 8.6 g/dL (12.0-16.0); Mean Corpuscular Hemoglobin 28.6 pg (27.0-31.0); Mean Corpuscular Volume 100.3 fL (78.0-98.0); Platelet Count 239 10x3/uL (130-400); Red Blood Cell (RBC) Count 3.01 mill/uL (4.20-5.40); White Blood Cell (WBC) Count 9.96 10x3/uL (4.8-10.8)
[2025-03-17 09:27] LABS: Anion Gap 15 mmol/L (10-20); BUN (Urea Nitrogen) 23 mg/dL (9.8-20.1); Calc. Creatinine Clearance 8 mL/min (70-130); Calcium 8.1 mg/dL (7.8-10.44); Carbon Dioxide 27 mmol/L (23-31); Chloride 93 mmol/L (98-107); Glucose 172 mg/dL (83-110); Potassium 3.6 mmol/L (3.5-5.1); Sodium 131 mmol/L (136-145)
[2025-03-17 09:44] LABS: Anisocytosis SLIGHT = 6-15 cells HPF (0-5); Burr Cells MODERATE= 6-15 cells HPF (0-1); Platelet Adequacy Comment Platelets Normal; Polychromasia SLIGHT = 2-3 cells HPF (0-2); Schistocytes SLIGHT = 2-5 cells HPF (0-1)
[2025-03-17] MEDS ORDERED: Heparin 10,000 UNITS/ 10 ML VIAL ONE (09:47)
[2025-03-17 15:12] VITALS: BP 111/59; TEMP 97.4
[2025-03-17] MEDS: Ondansetron PF 4 MG/2 ML Vial IVP SCH (17:44)
== END 2025-03-17 19:20 | DRG 308 ==
LOC: 2NO 13:08 → INTOOBSV 13:08 → OBSVTOIN 20:25
PROVIDERS: ADMIT Internal Medicine; ATTEND Internal Medicine
PROC: 5A1D70Z Performance of Urinary Filtration, Intermittent, Less than 6 Hours Per Day (ICD-10-PCS; principal; 2025-03-13)
DX: I48.19 Other persistent atrial fibrillation (principal); J96.01 Acute respiratory failure with hypoxia; N18.6 End stage renal disease; I13.2 Hypertensive heart and chronic kidney disease with heart failure and with stage 5 chronic kidney disease, or end stage renal disease; N39.0 Urinary tract infection, site not specified; I50.32 Chronic diastolic (congestive) heart failure; E87.1 Hypo-osmolality and hyponatremia; J91.8 Pleural effusion in other conditions classified elsewhere; E87.6 Hypokalemia; E87.70 Fluid overload, unspecified; E11.22 Type 2 diabetes mellitus with diabetic chronic kidney disease; I49.5 Sick sinus syndrome; E78.5 Hyperlipidemia, unspecified; Z99.2 Dependence on renal dialysis; Z88.5 Allergy status to narcotic agent; Z88.1 Allergy status to other antibiotic agents; Z88.8 Allergy status to other drugs, medicaments and biological substances; Z98.890 Other specified postprocedural states; Z90.49 Acquired absence of other specified parts of digestive tract; Z79.899 Other long term (current) drug therapy; E11.65 Type 2 diabetes mellitus with hyperglycemia; E87.8 Other disorders of electrolyte and fluid balance, not elsewhere classified; Z88.6 Allergy status to analgesic agent; D63.1 Anemia in chronic kidney disease; Z88.2 Allergy status to sulfonamides; B96.20 Unspecified Escherichia coli [E. coli] as the cause of diseases classified elsewhere; Z88.7 Allergy status to serum and vaccine
CPT/HCPCS: 36415; 71045; 80048; 80053; 83735; 85025; 86704; 86706; 86803; 87340; 90935; G0257; J1644; J2405; Q5105

== ENCOUNTER 2025-03-31 09:22 | Inpatient (IN) | payer MEDICARE, BC ==
[2025-03-31 10:04] LABS: #Basophils Less than 0.03 10x3/uL (0.0-0.2); #Eosinophils 0.03 10x3/uL (0.0-0.7); #Monocytes 0.77 10x3/uL (0.11-0.59); #Neutrophils 9.60 10x3/uL (1.40-6.50); %Basophils 0.1 % (0.0-1.0); %Eosinophils 0.3 % (0.0-10.0); %Lymphocytes 6.7 % (21.0-51.0); %Monocytes 6.9 % (0.0-10.0); %Neutrophils 85.6 % (42.0-75.0); Hematocrit 32.4 % (36.0-47.0); Hemoglobin 9.6 g/dL (12.0-16.0); Mean Corpuscular Hemoglobin 29.1 pg (27.0-31.0); Mean Corpuscular Volume 98.2 fL (78.0-98.0); Platelet Count 106 10x3/uL (130-400); Red Blood Cell (RBC) Count 3.30 mill/uL (4.20-5.40); White Blood Cell (WBC) Count 11.20 10x3/uL (4.8-10.8)
[2025-03-31 10:21] LABS: ALT (SGPT) 21 U/L (Less than 34); AST (SGOT) 22 U/L (11-34); Albumin 3.5 g/dL (3.1-4.5); Alkaline Phosphatase 62 U/L (40-110); Anion Gap 18 mmol/L (10-20); BUN (Urea Nitrogen) 37 mg/dL (9.8-20.1); Bilirubin, Total 0.9 mg/dL (0.3-1.2); Calc. Creatinine Clearance 0 mL/min (70-130); Calcium 8.9 mg/dL (7.8-10.44); Carbon Dioxide 27 mmol/L (23-31); Chloride 92 mmol/L (98-107); Globulin 2.7 g/dL (2.4-3.5); Glucose 105 mg/dL (83-110); Potassium 3.8 mmol/L (3.5-5.1); Sodium 133 mmol/L (136-145)
[2025-03-31 10:53] LABS: Anisocytosis SLIGHT = 6-15 cells HPF (0-5); Burr Cells MODERATE= 6-15 cells HPF (0-1); Macrocytosis SLIGHT = 6-15 cells HPF (0-5); Platelet Adequacy Comment Platelets Decreased; Polychromasia SLIGHT = 2-3 cells HPF (0-2); Schistocytes SLIGHT = 2-5 cells HPF (0-1)
[2025-03-31 11:05] LABS: Bacteria/HPF None Seen HPF (None Seen); CAUTI Indications for Culture Alt mental st,lethar; Glucose, Urine (Dipstick) Normal (Negative); Leukocyte 25 Leu/uL (Negative); Protein, Urine (Dipstick) 20 mg/dL (Neg-Trace); RBC/HPF None Seen HPF (0-3); Specific Gravity, Urine 1.013 (1.002-1.036); WBC/HPF 0-3 HPF (0-3)
[2025-03-31 11:06] LABS: Urine Culture Reflex No No
[2025-03-31] MEDS ORDERED: Cefepime 2 GM VIAL ONE (11:16)
[2025-03-31] MEDS ORDERED: Iopamidol-370 76% 500 ML MDV (1 ML CHARGE) ONE (12:59)
[2025-03-31] MEDS ORDERED: Melatonin 3 MG TAB PO PRN (13:13)
[2025-03-31] MEDS ORDERED: Acetaminophen 325 MG TAB PO PRN (13:13)
[2025-03-31 14:41] LABS: Actual Bicarbonate (HCO3a) 27.0 mEq/L (22-28); Base Excess (BEa) 1.1 mEq/L (-2.0 to +3.0); CO2 Tension 48.9 mmHg (35.0-45.0); Calcium, Ionized (arterial) 1.18 mmol/L (1.12-1.30); Hematocrit-ABG 30 % (36.0-47.0); Hemoglobin (Hb) 10.3 g/dL (12.0-16.0); O2 Tension (PaO2), arterial 212.5 mmHg (> 60.0); Potassium - ABG Lab 3.77 mmol/L (3.70-5.30); pH, Arterial 7.360 (7.35-7.45)
[2025-03-31 14:42] LABS: ALV-art Gradient 11.575 mmHg (0-20); Puncture Site RR
[2025-03-31] MEDS: Heparin 5,000 UNITS/ML VIAL SC SCH (15:42)
[2025-03-31] MEDS: Vancomycin 1 GM in Premix 1 BAG IVPB SCH (15:42)
[2025-03-31] MEDS ORDERED: Glucagon 1 MG/ML KIT IM PRN (15:52)
[2025-03-31] MEDS: Pantoprazole 40 MG VIAL IVP SCH (16:07)
[2025-03-31 16:53] LABS: Magnesium 1.8 mg/dL (1.6-2.6)
[2025-03-31] MEDS ORDERED: Famotidine 20 MG TAB PO SCH (21:00)
[2025-03-31] MEDS: EPOETIN ALFA-EPBX (ESRD) 10,000 UNITS/ML VIAL SC SCH (23:17)
[2025-04-01 04:19] LABS: #Basophils 0.04 10x3/uL (0.0-0.2); #Eosinophils 0.04 10x3/uL (0.0-0.7); #Monocytes 0.93 10x3/uL (0.11-0.59); #Neutrophils 8.44 10x3/uL (1.40-6.50); %Basophils 0.4 % (0.0-1.0); %Eosinophils 0.4 % (0.0-10.0); %Lymphocytes 10.4 % (21.0-51.0); %Monocytes 8.6 % (0.0-10.0); %Neutrophils 78.3 % (42.0-75.0); Hematocrit 34.5 % (36.0-47.0); Hemoglobin 10.4 g/dL (12.0-16.0); Mean Corpuscular Hemoglobin 29.4 pg (27.0-31.0); Mean Corpuscular Volume 97.5 fL (78.0-98.0); Platelet Count 70 10x3/uL (130-400); Red Blood Cell (RBC) Count 3.54 mill/uL (4.20-5.40); White Blood Cell (WBC) Count 10.77 10x3/uL (4.8-10.8)
[2025-04-01 04:54] LABS: Anion Gap 17 mmol/L (10-20); BUN (Urea Nitrogen) 16 mg/dL (9.8-20.1); Calc. Creatinine Clearance 20 mL/min (70-130); Calcium 8.7 mg/dL (7.8-10.44); Carbon Dioxide 21 mmol/L (23-31); Chloride 100 mmol/L (98-107); Glucose 62 mg/dL (83-110); Potassium 3.2 mmol/L (3.5-5.1); Sodium 135 mmol/L (136-145)
[2025-04-01] MEDS: Dextrose 50% Abboject 50 ML SYRINGE SLOW IVP PRN (05:50)
[2025-04-01] MEDS: Ketorolac Tromethamine 30 MG (1 mL) VIAL IVP SCH (06:29)
[2025-04-01] MEDS: Gabapentin 100 MG CAP PO SCH (09:15)
[2025-04-01] MEDS ORDERED: Diltiazem HCl/D5W 125 MG in Premix 1 BAG IVPB SCH (09:15)
[2025-04-01] MEDS: Digoxin 0.25 MG TAB PO SCH ×2 (09:15→10:09)
[2025-04-01] MEDS: dilTIAZem 30 MG TAB PO SCH (09:15)
[2025-04-01] MEDS: Benzonatate 100 MG CAP PO SCH (09:15)
[2025-04-01] MEDS: Heparin 5,000 UNITS/ML VIAL SC SCH (09:21)
[2025-04-01] MEDS: Pantoprazole 40 MG VIAL IVP SCH (09:22)
[2025-04-01] MEDS: Potassium Chloride 20 MEQ in Premix 1 BAG IVPB SCH (10:05)
[2025-04-01] MEDS: Pantoprazole 40 MG DR.TAB PO SCH (10:08)
[2025-04-01] MEDS: HYDROcodone/Acetaminophen 10/325 mg Tablet PO PRN (11:58)
[2025-04-01] MEDS: Baclofen 10 MG TAB PO PRN (18:33)
[2025-04-01] MEDS: Transdermal Patch Removal TOP SCH (23:26)
[2025-04-02 10:07] LABS: Albumin 3.4 g/dL (3.1-4.5); Anion Gap 16 mmol/L (10-20); BUN (Urea Nitrogen) 19 mg/dL (9.8-20.1); BUN/Creatinine Ratio 8.26; Calc. Creatinine Clearance 15 mL/min (70-130); Calcium 9.5 mg/dL (7.8-10.44); Carbon Dioxide 28 mmol/L (23-31); Chloride 97 mmol/L (98-107); Glucose 116 mg/dL (83-110); Magnesium 1.9 mg/dL (1.6-2.6); Potassium 3.8 mmol/L (3.5-5.1); Sodium 137 mmol/L (136-145)
[2025-04-02] MEDS ORDERED: Heparin 10,000 UNITS/ 10 ML VIAL ONE (11:09)
[2025-04-02] MEDS: Acetaminophen 500 MG TAB PO SCH (17:31)
[2025-04-02] MEDS: Transdermal Patch Removal TOP SCH (19:46)
[2025-04-02] MEDS: QUEtiapine 25 MG TAB PO SCH (21:17)
[2025-04-03 04:26] LABS: #Basophils Less than 0.03 10x3/uL (0.0-0.2); #Eosinophils 0.09 10x3/uL (0.0-0.7); #Monocytes 0.47 10x3/uL (0.11-0.59); #Neutrophils 6.39 10x3/uL (1.40-6.50); %Basophils 0.0 % (0.0-1.0); %Eosinophils 1.2 % (0.0-10.0); %Lymphocytes 8.4 % (21.0-51.0); %Monocytes 6.2 % (0.0-10.0); %Neutrophils 83.9 % (42.0-75.0); Hematocrit 32.1 % (36.0-47.0); Hemoglobin 9.1 g/dL (12.0-16.0); Mean Corpuscular Hemoglobin 29.0 pg (27.0-31.0); Mean Corpuscular Volume 102.2 fL (78.0-98.0); Platelet Count 84 10x3/uL (130-400); Red Blood Cell (RBC) Count 3.14 mill/uL (4.20-5.40); White Blood Cell (WBC) Count 7.61 10x3/uL (4.8-10.8)
[2025-04-03 04:40] LABS: Anion Gap 8 mmol/L (10-20); BUN (Urea Nitrogen) 9 mg/dL (9.8-20.1); Calc. Creatinine Clearance 22 mL/min (70-130); Calcium 9.0 mg/dL (7.8-10.44); Carbon Dioxide 28 mmol/L (23-31); Chloride 101 mmol/L (98-107); Glucose 146 mg/dL (83-110); Potassium 3.8 mmol/L (3.5-5.1); Sodium 133 mmol/L (136-145)
[2025-04-03] MEDS: hydrALAZINE 20 MG/ML VIAL SLOW IVP PRN (12:54)
[2025-04-03] MEDS: Rosuvastatin 20 MG TAB PO SCH ×2 (13:39→13:55)
[2025-04-03] MEDS: Folic Acid/Vit B Comp W-C PO SCH ×2 (13:39→13:54)
[2025-04-03] MEDS: Ezetimibe 10 MG TAB PO SCH ×2 (13:39→13:54)
[2025-04-03] MEDS: Digoxin 0.25 MG TAB PO SCH (13:40)
[2025-04-03] MEDS: dilTIAZem 30 MG TAB PO SCH (13:41)
[2025-04-03] MEDS: Melatonin 3 MG TAB PO PRN (19:08)
[2025-04-04] MEDS: diphenhydrAMINE 50 MG/ML VIAL IVP SCH (03:33)
[2025-04-04 04:09] LABS: #Basophils Less than 0.03 10x3/uL (0.0-0.2); #Eosinophils 0.07 10x3/uL (0.0-0.7); #Monocytes 1.02 10x3/uL (0.11-0.59); #Neutrophils 10.70 10x3/uL (1.40-6.50); %Basophils 0.1 % (0.0-1.0); %Eosinophils 0.5 % (0.0-10.0); %Lymphocytes 8.1 % (21.0-51.0); %Monocytes 7.9 % (0.0-10.0); %Neutrophils 83.0 % (42.0-75.0); Hematocrit 37.2 % (36.0-47.0); Hemoglobin 11.0 g/dL (12.0-16.0); Mean Corpuscular Hemoglobin 29.0 pg (27.0-31.0); Mean Corpuscular Volume 98.2 fL (78.0-98.0); Platelet Count 117 10x3/uL (130-400); Red Blood Cell (RBC) Count 3.79 mill/uL (4.20-5.40); White Blood Cell (WBC) Count 12.89 10x3/uL (4.8-10.8)
[2025-04-04 04:26] LABS: Anion Gap 14 mmol/L (10-20); BUN (Urea Nitrogen) 14 mg/dL (9.8-20.1); Calc. Creatinine Clearance 19 mL/min (70-130); Calcium 9.6 mg/dL (7.8-10.44); Carbon Dioxide 24 mmol/L (23-31); Chloride 98 mmol/L (98-107); Glucose 155 mg/dL (83-110); Potassium 4.3 mmol/L (3.5-5.1); Sodium 132 mmol/L (136-145)
[2025-04-04 05:26] LABS: Bacteria/HPF None Seen HPF (None Seen); CAUTI Indications for Culture Dysuria,urgency,freq; Glucose, Urine (Dipstick) Normal (Negative); Leukocyte 75 Leu/uL (Negative); Protein, Urine (Dipstick) 30 mg/dL (Neg-Trace); RBC/HPF 0-3 HPF (0-3); Specific Gravity, Urine 1.012 (1.002-1.036)
[2025-04-04 05:28] LABS: Urine Culture Reflex No No
[2025-04-04 06:24] VITALS: BMI 21.3
[2025-04-04] MEDS: Baclofen 10 MG TAB PO PRN (14:35)
[2025-04-04] MEDS: HYDROcodone/Acetaminophen 5/325 mg Tablet PO PRN (15:20)
[2025-04-04] MEDS: Losartan 25 MG TAB PO SCH (15:21)
[2025-04-04] MEDS: Cyclobenzaprine 10 MG TAB PO SCH ×2 (16:42→17:30)
[2025-04-04] MEDS: diphenhydrAMINE 25 MG CAP PO PRN (21:28)
[2025-04-05 09:39] LABS: #Basophils Less than 0.03 10x3/uL (0.0-0.2); #Eosinophils Less than 0.03 10x3/uL (0.0-0.7); #Monocytes 0.43 10x3/uL (0.11-0.59); #Neutrophils 7.09 10x3/uL (1.40-6.50); %Basophils 0.1 % (0.0-1.0); %Eosinophils 0.3 % (0.0-10.0); %Lymphocytes 4.4 % (21.0-51.0); %Monocytes 5.4 % (0.0-10.0); %Neutrophils 89.3 % (42.0-75.0); Hematocrit 33.9 % (36.0-47.0); Hemoglobin 9.8 g/dL (12.0-16.0); Mean Corpuscular Hemoglobin 28.7 pg (27.0-31.0); Mean Corpuscular Volume 99.4 fL (78.0-98.0); Platelet Count 92 10x3/uL (130-400); Red Blood Cell (RBC) Count 3.41 mill/uL (4.20-5.40); White Blood Cell (WBC) Count 7.94 10x3/uL (4.8-10.8)
[2025-04-05] MEDS ORDERED: Heparin 10,000 UNITS/ 10 ML VIAL ONE (09:45)
[2025-04-05 09:50] LABS: Anion Gap 15 mmol/L (10-20); BUN (Urea Nitrogen) 19 mg/dL (9.8-20.1); Calc. Creatinine Clearance 17 mL/min (70-130); Calcium 9.3 mg/dL (7.8-10.44); Carbon Dioxide 27 mmol/L (23-31); Chloride 95 mmol/L (98-107); Glucose 187 mg/dL (83-110); Potassium 4.6 mmol/L (3.5-5.1); Sodium 132 mmol/L (136-145)
[2025-04-05 09:52] LABS: Digoxin 2.45 ng/mL (0.8-2.0)
[2025-04-05 10:43] LABS: Anisocytosis MODERATE=16-30 cells HPF (0-5); Burr Cells MODERATE= 6-15 cells HPF (0-1); Macrocytosis SLIGHT = 6-15 cells HPF (0-5); Platelet Adequacy Comment Platelets Decreased; Polychromasia SLIGHT = 2-3 cells HPF (0-2); Schistocytes SLIGHT = 2-5 cells HPF (0-1)
[2025-04-05] MEDS: Losartan 25 MG TAB PO SCH (13:18)
[2025-04-06 04:59] LABS: #Basophils Less than 0.03 10x3/uL (0.0-0.2); #Eosinophils Less than 0.03 10x3/uL (0.0-0.7); #Monocytes 1.35 10x3/uL (0.11-0.59); #Neutrophils 10.72 10x3/uL (1.40-6.50); %Basophils 0.0 % (0.0-1.0); %Eosinophils 0.1 % (0.0-10.0); %Lymphocytes 3.1 % (21.0-51.0); %Monocytes 10.8 % (0.0-10.0); %Neutrophils 85.6 % (42.0-75.0); Hematocrit 36.8 % (36.0-47.0); Hemoglobin 10.9 g/dL (12.0-16.0); Mean Corpuscular Hemoglobin 29.2 pg (27.0-31.0); Mean Corpuscular Volume 98.7 fL (78.0-98.0); Platelet Count 62 10x3/uL (130-400); Red Blood Cell (RBC) Count 3.73 mill/uL (4.20-5.40); White Blood Cell (WBC) Count 12.52 10x3/uL (4.8-10.8)
[2025-04-06 08:09] LABS: Anion Gap 16 mmol/L (10-20); BUN (Urea Nitrogen) 8 mg/dL (9.8-20.1); Calc. Creatinine Clearance 24 mL/min (70-130); Calcium 8.6 mg/dL (7.8-10.44); Carbon Dioxide 25 mmol/L (23-31); Chloride 102 mmol/L (98-107); Glucose 91 mg/dL (83-110); Potassium 4.0 mmol/L (3.5-5.1); Sodium 139 mmol/L (136-145)
[2025-04-06] MEDS: HYDROmorphone 0.5 MG/0.5 ML SYRINGE SLOW IVP SCH (15:29)
[2025-04-06] MEDS ORDERED: HYDROmorphone 0.5 MG/0.5 ML SYRINGE SLOW IVP PRN (17:00)
[2025-04-06] MEDS: Scopolamine 1 mg/72 hour Patch TD SCH (21:31)
[2025-04-07 07:59] VITALS: BP 147/78; TEMP 98.7
== END 2025-04-07 14:15 | disposition hospice, inpatient (51) | DRG 91 ==
LOC: ERS 09:22 → IMCU/EMU 13:19 → 2SE 04-04 20:20
PROVIDERS: ADMIT Family Medicine; ATTEND Internal Medicine
PROC: 4A03XR1 Measurement of Arterial Saturation, Peripheral, External Approach (ICD-10-PCS; principal; 2025-03-31)
DX: G92.8 Other toxic encephalopathy (principal); I50.33 Acute on chronic diastolic (congestive) heart failure; J96.01 Acute respiratory failure with hypoxia; N18.6 End stage renal disease; I13.0 Hypertensive heart and chronic kidney disease with heart failure and stage 1 through stage 4 chronic kidney disease, or unspecified chronic kidney disease; E87.1 Hypo-osmolality and hyponatremia; Z66 Do not resuscitate; E11.9 Type 2 diabetes mellitus without complications; Z88.8 Allergy status to other drugs, medicaments and biological substances; E78.5 Hyperlipidemia, unspecified; S82.492A Other fracture of shaft of left fibula, initial encounter for closed fracture; I48.0 Paroxysmal atrial fibrillation; F03.90 Unspecified dementia, unspecified severity, without behavioral disturbance, psychotic disturbance, mood disturbance, and anxiety; D64.9 Anemia, unspecified; E87.70 Fluid overload, unspecified; R53.81 Other malaise; E87.6 Hypokalemia; F41.9 Anxiety disorder, unspecified; E11.649 Type 2 diabetes mellitus with hypoglycemia without coma; G47.00 Insomnia, unspecified; R41.0 Disorientation, unspecified; Z79.899 Other long term (current) drug therapy
CPT/HCPCS: 36415; 36416; 51701; 70450; 71045; 71275; 72125; 72170; 80048; 80053; 80061; 80069; 80162; 80307; 81001; 82306; 82805; 83036; 83605; 83735; 83880; 84439; 84443; 84484; 85025; 85027; 85610; 87040; 87086; 90935; 93005; 93306; 94640; 96365; 96367; G0257; J0360; J0692; J1171; J1200; J1630; J1644; J1885; J2270; J2272; J3360; J3373; J3480; J7070; J7620; J7999; Q5105; Q9967